=== PATIENT | male | born 1955 | race Caucasian/White ===

== ENCOUNTER → 2016-06-18 | Outpatient (CLI) | payer BC ==
[~2016-06-18] MED LIST: ASPI325T45 PO; ASPI81TA28 PO; ATOR-26 PO; CHOL1000 PO; CHOL100010 PO; CIPR-255 PO; CYAN10004 PO; HYDR-5688 PO; LOSA50TA54 PO; METO25TA56 PO; NTRGSL/4 UT; NTRSLP4 UT; OMEG10007 PO; ONDA4TAB46 PO; PHEN-775 PO; RANI300T PO; TAMS0.4C38 PO; VITAMIN B12 PO
--- NOTE | 2016-06-18 15:40 | DIAGNOSTIC IMAGING REPORT ---
C-SPINE ROUTINE 4 OR 5 VIEWS CLINICAL HISTORY: Neck pain. Radiculopathy. COMPARISON STUDY: MRI of the cervical spine November 13, 2014 and cervical spine radiographs August 17, 2014. FINDINGS: Several metallic densities consistent with BBs are again noted. There is slight reversal of the normal cervical lordosis. This is unchanged since prior exam of August 17, 2014. There is fusion of the C5 and C6 vertebral bodies. No acute fracture is identified. Mild multilevel disc space narrowing and facet arthrosis is present with osteophytosis. IMPRESSION: 1. No cervical spine fracture. 2. Fusion of the C5 and C6 vertebra. 3. Mild multilevel disc space narrowing, osteophytosis and facet arthrosis of the cervical spine. Electronically signed by: Mikey Tam M.D. 06/18/2016 3:38 PM Dictated Date/Time: 06/18/2016 3:36 PM
[2016-06-18 17:11] LABS: BASO % 0.4 %; BASO ABS # 0.03 K/uL (0-0.2); COMPLETE YES; EOS % 2.3 %; HEMATOCRIT 41.8 % (42-52); LYMPH % 37.6 %; LYMPH ABS # 3.16 K/uL (1.2-3.4); MEAN CELL VOLUME 86.2 fL (80-100); MEAN CORPUSCULAR HEMOGLOBIN 30.3 pg (25-34); MEAN CORPUSCULAR HGB CONC 35.2 g/dl (32-36); MEAN PLATELET VOLUME 9.8 fL (7.4-10.4); MONO % 12.3 %; NEUT % 46.4 %; PLATELET COUNT 187 K/uL (130-400); RED BLOOD COUNT 4.85 M/uL (4.7-6.1)
[2016-06-18 17:24] LABS: ALT/SGPT 52 U/L (12-78); AST/SGOT 22 U/L (15-37); BLOOD UREA NITROGEN 15 mg/dl (7-18); BUN/CREATININE RATIO 11.5 (10-20); CALCIUM 9.1 mg/dl (8.5-10.1); CARBON DIOXIDE 32 mmol/L (21-32); CHLORIDE 106 mmol/L (98-107); CHOLESTEROL 114 mg/dl (0-200); GLUCOSE 103 mg/dl (70-99); SODIUM 143 mmol/L (136-145); TRIGLYCERIDES 381 mg/dl (0-150); VERY LOW DENSITY LIPOPROT CALC 76 mg/dl
[2016-06-18 17:28] LABS: ALKALINE PHOSPHATASE 75 U/L (45-117); CHOLESTEROL/HDL RATIO 2.9; FERRITIN 418.6 ng/ml (8.0-388.0); HDL CHOLESTEROL 39 mg/dl; TOTAL IRON BINDING CAPACITY 302 mcg/dl (250-450)
== END | disposition home or self-care (01) ==
LOC: C.RADBC 15:06
PROVIDERS: ATTEND Family Medicine
DX: M54.12 Radiculopathy, cervical region (principal); D64.9 Anemia, unspecified; N28.9 Disorder of kidney and ureter, unspecified; Z11.59 Encounter for screening for other viral diseases; E78.5 Hyperlipidemia, unspecified; M43.22 Fusion of spine, cervical region

== ENCOUNTER → 2016-08-11 | Outpatient (CLI) | payer BC ==
--- NOTE | 2016-08-11 09:56 | DIAGNOSTIC IMAGING REPORT ---
KUB CLINICAL HISTORY: KIDNEY STONES flank pain COMPARISON STUDY: 02/18/2016 FINDINGS: Calcification previously described lower aspect left kidney is not easily appreciated currently. There is a vague similar calcification overlying the left mid sacrum. Possible that this relates to a interval passage of the lower pole left renal calcification to the distal left ureter is considered. There is a stable in the central soft tissue pelvic region unchanged. IMPRESSION: Lower pole left renal calcification is not seen currently on the region of the left kidney but potentially exists within the left ureter overlying left mid sacrum. Electronically signed by: Willy Lan M.D. 08/11/2016 9:54 AM Dictated Date/Time: 08/11/2016 9:53 AM
== END ==
LOC: C.RAD 09:22
PROVIDERS: ATTEND Nurse Practitioner Adult Health
DX: N20.0 Calculus of kidney (principal)

== ENCOUNTER → 2016-08-11 | Outpatient (CLI) | payer BC | LOC: C.LABSPEC 17:43 | PROVIDERS: ATTEND Nurse Practitioner Adult Health | DX: N20.1 Calculus of ureter (principal) ==

== ENCOUNTER 2016-08-25 05:27 | Day surgery (SDC) | payer BC ==
--- NOTE | 2016-08-14 09:49 | PAT Medication Instructions ---
Service Date Aug 14, 2016. Current Home Medication List Aspirin (Aspirin Ec), 81 MG PO QAM Atorvastatin (Lipitor), 80 MG PO QAM Cholecalciferol (Vitamin D), 2,000 INTER.UNIT PO BID Fish Oil ([place]-3), 1 CAP PO TID Hydrocodone/Acetaminophen 5MG/325MG ([place] 5MG/325MG), 1 TABLET PO q4-6h PRN for Pain Losartan Potassium (Cozaar), 50 MG PO QAM Metoprolol Tartrate (Lopressor) (Lopressor), 25 MG PO BID Nitroglycerin (Nitrostat), 0.4 MG UT PRN Ondansetron Hcl (Zofran), 4-8 MG PO PRN PRN for Nausea Tamsulosin Hcl (Flomax), 0.4 MG PO HS [Vitamin B12], 1 TAB PO QAM Medication Instructions For Your Scheduled Surgery - Hold the following medications as of 08/14/16: Fish Oil ([place]-3), 1 CAP PO TID - Continue as directed: Nitroglycerin (Nitrostat), 0.4 MG UT PRN - Hold the following medications the morning of surgery: Cholecalciferol (Vitamin D), 2,000 INTER.UNIT PO BID [Vitamin B12], 1 TAB PO QAM Losartan Potassium (Cozaar), 50 MG PO QAM - Take the following medications the morning of surgery with a sip of water OTHERWISE NOTHING TO EAT OR DRINK AFTER MIDNIGHT: Aspirin (Aspirin Ec), 81 MG PO QAM Atorvastatin (Lipitor), 80 MG PO QAM Hydrocodone/Acetaminophen 5MG/325MG ([place] 5MG/325MG), 1 TABLET PO q4-6h PRN for Pain (may take up to 4 hours prior to surgery if needed) Metoprolol Tartrate (Lopressor) (Lopressor), 25 MG PO BID Ondansetron Hcl (Zofran), 4-8 MG PO PRN PRN for Nausea - Take the following medications as scheduled the night before surgery: Cholecalciferol (Vitamin D), 2,000 INTER.UNIT PO BID Hydrocodone/Acetaminophen 5MG/325MG ([place] 5MG/325MG), 1 TABLET PO q4-6h PRN for Pain Tamsulosin Hcl (Flomax), 0.4 MG PO HS Metoprolol Tartrate (Lopressor) (Lopressor), 25 MG PO BID Ondansetron Hcl (Zofran), 4-8 MG PO PRN PRN for Nausea If you have any questions please call us at [phone] or [phone] or [phone]
[2016-08-14 10:10] LABS: BASO % 0.5 %; BASO ABS # 0.04 K/uL (0-0.2); COMPLETE YES; EOS % 2.2 %; HEMATOCRIT 40.4 % (42-52); IG% 0.7 %; LYMPH % 32.8 %; MEAN CELL VOLUME 87.4 fL (80-100); MEAN CORPUSCULAR HEMOGLOBIN 32.3 pg (25-34); MEAN CORPUSCULAR HGB CONC 36.9 g/dl (32-36); MEAN PLATELET VOLUME 9.3 fL (7.4-10.4); MONO % 11.2 %; NEUT % 52.6 %; PLATELET COUNT 166 K/uL (130-400); RED BLOOD COUNT 4.62 M/uL (4.7-6.1); WHITE BLOOD COUNT 7.31 K/uL (4.8-10.8)
[2016-08-14 10:34] LABS: BUN/CREATININE RATIO 14.9 (10-20); CALCIUM 9.2 mg/dl (8.5-10.1); CREATININE 1.8 mg/dl (0.60-1.40); POTASSIUM 4.7 mmol/L (3.5-5.1)
[~2016-08-25] VITALS: Ht 175.3 cm; Wt 93.3 kg
[~2016-08-25 05:27] MED LIST changes: -ASPI325T45 PO; -CHOL1000 PO; -CIPR-255 PO; -CYAN10004 PO; -NTRSLP4 UT; -PHEN-775 PO; -RANI300T PO
[2016-08-25 05:58] VITALS: BP 113/75; PULSE 68; TEMP 36.7; O2SAT 94; Ht 175.3 cm; Wt 93.3 kg
[2016-08-25] MEDS ORDERED: CIPROFLOXACIN / D5W 400 MG IV SCH (06:00)
[2016-08-25] MEDS ORDERED: LACTATED RINGER'S 1000ML 1,000 ML IV SCH (06:00)
[2016-08-25] MEDS ORDERED: FENTANYL CITRATE INJ 50 MCG/1 ML 2 ML VIAL ONE (06:53)
[2016-08-25] MEDS ORDERED: MIDAZOLAM HCL 1 MG/ML 2ML VIAL ONE (06:53)
--- NOTE | 2016-08-25 07:02 | History & Physical Bridge Note ---
H&P Re-Evaluation Bridge Note: I have examined the patient, reviewed the History & Physical and in the interval since the performance of the History & Physical I have noted the following changes of clinical significance: No changes noted
[2016-08-25] MEDS ORDERED: CONRAY 30% 150ML BOTTLE ONE (07:14)
[2016-08-25] MEDS ORDERED: LABETALOL HCL IV 5 MG/ML 20ML IV PRN (07:15)
[2016-08-25] MEDS ORDERED: FENTANYL CITRATE INJ 50 MCG/1 ML 2 ML VIAL IV PRN (07:15)
[2016-08-25] MEDS ORDERED: ATROPINE SULFATE 0.1 MG/ML 5ML SYR IV PRN (07:15)
[2016-08-25] MEDS ORDERED: ONDANSETRON INJ 2 MG/ML 2 ML VIAL IV PRN (07:15)
[2016-08-25] MEDS ORDERED: PROPOFOL IV EMULSION 10 MG/ML 20 ML VIAL IV ONE (07:32)
[2016-08-25] MEDS ORDERED: DEXAMETHASONE SOD INJ 4 MG/ML VIAL ONE (07:32)
[2016-08-25] MEDS ORDERED: LIDOCAINE HCL 2% 2 ML VIAL (20MG/ML) ONE (07:32)
[2016-08-25] MEDS ORDERED: ONDANSETRON INJ 2 MG/ML 2 ML VIAL ONE (07:32)
[2016-08-25] MEDS ORDERED: PHENYLEPHRINE 100MCG/ML 5ML SYR ONE (07:35)
[2016-08-25] MEDS ORDERED: EpHEDrine SULFATE 50MG/5ML SYR ONE (07:35)
[2016-08-25] MEDS ORDERED: GLYCOPYRROLATE INJ 0.2 MG/ML VIAL ONE (07:51)
[2016-08-25] MEDS ORDERED: KETOROLAC TROMETHAMINE 30 MG/ML VIAL IV. STA (08:07)
[2016-08-25] MEDS ORDERED: SODIUM CHLORIDE 0.9% 1000ML 1,000 ML IV SCH (08:07)
--- NOTE | 2016-08-25 08:07 | [facility] Post Operative Brief Note ---
Immediate Operative Summary Operative Date Aug 25, 2016. Pre-Operative Diagnosis nephrolithiasis - left Post-Operative Diagnosis nephrolithiasis - left Procedure(s) Performed Cystoscopy, ureteroscopy, laser lithotropsy, left urethral stent (6Fx 24cm) Surgeon Dr Mika Stephens Entry Level Assistant Manager Surgeon(s) none Estimated Blood Loss 0cc Findings left mid/distal ureteral calculus. Specimens none Drains stent Anesthesia gen Complication(s) None Disposition Recovery Room / PACU (stable)
[2016-08-25] MEDS ORDERED: HYDR-5688 PO (08:09)
[2016-08-25] MEDS ORDERED: PHEN-775 PO (08:09)
[2016-08-25] MEDS ORDERED: CIPR-255 PO (08:09)
--- NOTE | 2016-08-25 08:11 | Discharge Instructions ---
Discharge Instructions Date of Service Aug 25, 2016. Admission Reason for Admission: Stone Discharge Discharge Diagnosis / Problem: stone Discharge Goals Goal(s): Decrease discomfort, Improve function, Increase independence, Improve disease control, Prevent Disease Progression Activity Recommendations Activity Limitations: resume your previous activity Lifting Limitations: none Exercise/Sports Limitations: none May Resume Sexual Activity: when tolerated Shower/Bathe: no limitations Driving or Machine Use: no limitations (as long as you are off of pain meds) . Discharge Diet Recommended Diet: Regular Diet Procedures Procedures Performed: Cystoscopy, ureteroscopy, laser lithotropsy, left urethral stent (6Fx 24cm) Pending Studies Studies pending at discharge: no Laboratory Results Lipid Panel Test 06/18/16 15:11 Range/Units Triglycerides Level 381 H 0-150 mg/dl Cholesterol Level 114 0-200 mg/dl HDL Cholesterol 39 mg/dl LDL Cholesterol Direct 49 mg/dl Cholesterol/HDL Ratio 2.9 LDL Cholesterol, Calculated mg/dl Medical Emergencies . Who to Call and When: Medical Emergencies: If at any time you feel your situation is an emergency, please call 911 immediately. . Non-Emergent Contact Non-Emergency issues call your: Urologist Call Non-Emergent contact if: you have a fever, temperature is above 101.5, your pain is not controlled, your pain is worsening . . "Provider Documentation" section prepared by Tristian Espinal. VTE Core Measure Inpt VTE Proph given/why not?: Treatment not indicated [place] Drug Monitoring Program Search Results: patient reviewed within database, no issues identified
[2016-08-25] MEDS ORDERED: HYDROCODONE/ACETAMOPHEN 5/325MG TAB PO PRN ×2 (08:15)
--- NOTE | 2016-08-25 08:41 | OPERATIVE REPORT ---
DATE OF OPERATION: 08/25/2016 PREOPERATIVE DIAGNOSIS: Left ureteral calculus. POSTOPERATIVE DIAGNOSIS: Left ureteral calculus. PROCEDURES PERFORMED: Cystoscopy, left ureteroscopy, left laser lithotripsy, and left ureteral stent placement. ANESTHESIA: General. ESTIMATED BLOOD LOSS: 0. URINE OUTPUT: Not recorded. SPECIMENS: There were no specimens. COMPLICATIONS: There were no complications. DESCRIPTION OF THE PROCEDURE: Reji Stack was identified in the preoperative holding area. Appropriate informed consents were reviewed and completed and the patient was transported to the operating suite. Upon arrival, he received appropriate preoperative antibiotics in the form of ciprofloxacin. Adequate general anesthesia was achieved and the patient was placed in dorsal lithotomy position, where he was sterilely prepped and draped in standard fashion. I passed a 22-Khmer cystoscope without difficulty. Inspection of the urethra revealed no evidence of stricture disease. Prostate was relatively small in size. Full inspection of the bladder was carried out with no evidence of mucosal disease aside from very mild irritation around the left ureteral orifice. On fluoroscopy, I was able to easily visualize what appeared to be a calculus just below the lower edge of the pelvic osseous structures. I was able to intubate the left ureteral orifice with a sensor wire. Wire advanced directly to this opacity and then I was able to bypass it. After placing one wire in the kidney, I withdrew the cystoscope and I reentered with a semirigid ureteroscope alongside the initial wire. I was able to guide this into the distal ureter and I encountered the stone just at the level of the blood vessels. I passed a 400 micron laser fiber and I was able to fragment the stone into several pieces. Multiple larger fragments were removed retrograde. I traced this up the proximal ureter and noted that a fragment had moved into the kidney. I then placed a second wire through the scope, withdrew the rigid scope and then reentered with a flexible scope. Flexible scope was advanced to the kidney without difficulty. Full inspection revealed no opacity on fluoroscopy in the lower pole and I was able to find this with the scope without difficulty. I fragmented this completely into pieces, deemed safe for spontaneous passage. I then performed a full repeat renoscopy and found no other large retained fragments. Very careful exit ureteroscopy was completed with again no large retained fragments. I did perform a retrograde pyelogram and had seen no evidence of extravasation prior to placing a 6/24 ureteral stent. There was a good curl in the kidney as well as the bladder. The bladder was decompressed and the case concluded. There were no complications. I attest to the content of the Intraoperative Record and any orders documented therein. Any exceptions are noted below. MTDD
[2016-08-25 08:55] VITALS: BP 143/90; PULSE 93; TEMP 36.6; O2SAT 93
[2016-08-25 09:25] VITALS: BP 133/84; PULSE 96; O2SAT 91
[2016-08-25 09:55] VITALS: BP 133/84; PULSE 91; TEMP 36.6; O2SAT 93
[2016-08-25] MEDS ORDERED: TAMSULOSIN HCL 0.4 MG CAP PO SCH ×2 (10:00→21:00)
--- NOTE | 2016-08-25 10:12 | Anesthesiology Progress Note ---
Anesthesia Post Op Note Date & Time Aug 25, 2016 at 10:12 Vital Signs Pain Intensity: 0 Vital Signs Past 12 Hours Date Time Temp Pulse Resp B/P Pulse Ox O2 Delivery O2 Flow Rate FiO2 08/25/16 09:55 36.6 91 20 133/84 93 Room Air 0 08/25/16 09:25 96 20 133/84 91 Room Air 08/25/16 08:55 36.6 93 18 143/90 93 Room Air 08/25/16 08:50 36.2 97 14 130/97 97 Room Air 08/25/16 08:40 96 14 121/86 91 Room Air 08/25/16 08:30 97 13 113/64 97 Mask 10 08/25/16 08:20 93 12 104/64 96 Mask 10 08/25/16 08:11 36.5 93 14 95/63 96 Mask 10 08/25/16 05:58 36.7 68 18 113/75 94 Room Air Notes Mental Status: alert / awake / arousable, participated in evaluation Pt Amnestic to Procedure: Yes Nausea / Vomiting: adequately controlled Pain: adequately controlled Airway Patency, RR, SpO2: stable & adequate BP & HR: stable & adequate Hydration State: stable & adequate Anesthetic Complications: no major complications apparent
== END 2016-08-25 10:15 | disposition home or self-care (01) ==
LOC: C.ACU 05:27
PROVIDERS: ATTEND Urology
DX: N20.1 Calculus of ureter (principal); N28.9 Disorder of kidney and ureter, unspecified; J44.9 Chronic obstructive pulmonary disease, unspecified; D64.9 Anemia, unspecified; M54.12 Radiculopathy, cervical region; I25.10 Atherosclerotic heart disease of native coronary artery without angina pectoris; I10 Essential (primary) hypertension; E78.5 Hyperlipidemia, unspecified; K31.9 Disease of stomach and duodenum, unspecified; I25.2 Old myocardial infarction; Z98.890 Other specified postprocedural states

== ENCOUNTER → 2016-09-08 | Outpatient (CLI) | payer BC ==
[~2016-09-08] MED LIST changes: +ASPI325T45 PO; +CHOL1000 PO; +CIPR-255 PO; +CYAN10004 PO; +NTRSLP4 UT
--- NOTE | 2016-09-08 10:43 | DIAGNOSTIC IMAGING REPORT ---
KUB CLINICAL HISTORY: Nephrolithiasis. Left ureteral stone. FINDINGS: 3 AP supine abdominal radiographs are compared to study dated 08/11/2016. There is a nonobstructed abdominal bowel gas pattern. A left ureteral stent is new from previous. No calcifications are seen along the course of the stent. No calcifications project over either kidney. Cholecystectomy clips are noted. The bony structures appear intact. IMPRESSION: 1. A left ureteral stent is new from previous. No calcifications are seen along the course of the stent. 2. No calcifications project over either kidney. Electronically signed by: Jarvis Shields M.D. 09/08/2016 10:41 AM Dictated Date/Time: 09/08/2016 10:40 AM
== END | disposition home or self-care (01) ==
LOC: C.RAD 09:45
PROVIDERS: ATTEND Nurse Practitioner Adult Health
DX: N20.1 Calculus of ureter (principal)

== ENCOUNTER → 2016-10-30 | Outpatient (CLI) | payer BC ==
[~2016-10-30] MED LIST changes: -CIPR-255 PO; -TAMS0.4C38 PO
[2016-10-30 13:36] LABS: BASO % 0.6 %; BASO ABS # 0.04 K/uL (0-0.2); COMPLETE YES; EOS % 1.7 %; HEMATOCRIT 41.6 % (42-52); IG% 1.1 %; LYMPH ABS # 2.51 K/uL (1.2-3.4); MEAN CELL VOLUME 88.9 fL (80-100); MEAN CORPUSCULAR HGB CONC 34.9 g/dl (32-36); MEAN PLATELET VOLUME 9.7 fL (7.4-10.4); MONO % 15.1 %; NEUT % 45.5 %; PLATELET COUNT 196 K/uL (130-400); RED BLOOD COUNT 4.68 M/uL (4.7-6.1); WHITE BLOOD COUNT 6.97 K/uL (4.8-10.8)
[2016-10-30 14:00] LABS: ALT/SGPT 40 U/L (12-78); BLOOD UREA NITROGEN 17 mg/dl (7-18); BUN/CREATININE RATIO 10.4 (10-20); CARBON DIOXIDE 27 mmol/L (21-32); CHLORIDE 106 mmol/L (98-107); GLUCOSE 124 mg/dl (70-99); POTASSIUM 4.1 mmol/L (3.5-5.1); SODIUM 141 mmol/L (136-145)
[2016-10-30 14:10] LABS: ALB/GLOB RATIO 0.9 (0.9-2); ALKALINE PHOSPHATASE 73 U/L (45-117); AST/SGOT 20 U/L (15-37)
[2016-10-30 14:28] LABS: LYME DISEASE AB IGG NEG (NEG)
[2016-10-30 14:32] LABS: LYME DISEASE AB IGM NEG (NEG)
[2016-10-30 14:56] LABS: CALCIUM 9.4 mg/dl (8.5-10.1)
== END | disposition home or self-care (01) ==
LOC: C.LABBC 10:44
PROVIDERS: ATTEND Physician Assistant
DX: R51 Headache (principal)

== ENCOUNTER 2016-11-15 17:47 | Inpatient (IN) | payer BC ==
[~2016-11-15] VITALS: Ht 175.3 cm; Wt 91.1 kg
[~2016-11-15 17:47] MED LIST changes: -ASPI325T45 PO; -CHOL1000 PO; -CYAN10004 PO; -NTRSLP4 UT
[2016-11-15] MEDS ORDERED: ASPIRIN 81 MG CHEW PO STA (18:04)
--- NOTE | 2016-11-15 18:15 | EMERGENCY ROOM VISIT NOTE ---
History Report prepared by Katelyn: Mckenzie Lo Under the Supervision of: Dr. Jarvis Mackay M.D. First contact with patient: 18:01 Chief Complaint: CHEST PAIN Stated Complaint: CHEST PAIN,R ARM PAIN/NUMBNESS Nursing Triage Summary: Patient arrived c/o bilateral chest pain that began this morning, went away and came back. Pt reports dizziness while working outside over last week and SOB x 1 week on exertion. Patient associates right arm pain. Hx stents Steroid shot in neck a week ago. History of Present Illness The patient is a 61 year old male who presents to the Emergency Room with complaints of intermittent chest pain that started this morning around 0630, when he woke up. He is accompanied by his . He describes his pain as feeling "strong, right across my chest" and rates his discomfort as a 3/10 in severity. It subsided early in the day, then came back later in the afternoon. He did not take any medication for his discomfort, stating "I was going to take a Nitro, but I decided to come here instead". He reports he has also experienced shortness of breath for the past 1 week that is worsened by exertion , and dizziness when working outside in the heat. The patient has a history of a previous [place] in 2015 and has had 2 cardiac stents placed. He follows with [facility] and states he does not currently take blood thinners. Source of History: patient Onset: 0630 this morning Position: chest Symptom Intensity: 3/10 Timing: intermittent Associated Symptoms: + SOB Review of Systems See HPI for pertinent positives & negatives. A total of 10 systems reviewed and were otherwise negative. Past Medical & Surgical Medical Problems: (1) Cholecystectomy (2) Kidney stone (3) Left ureteral stone (4) Unstable angina (5) Ureteral obstruction, left Surgical Problems: (1) Stented coronary artery Social History Smoking Status: Never Smoker Alcohol Use: none Drug Use: none Marital Status: Housing Status: lives with family Occupation Status: retired Current/Historical Medications Scheduled Aspirin (Aspirin), 1 TAB PO DAILY Atorvastatin (Lipitor), 80 MG PO QAM Cholecalciferol (Vitamin D3), 2,000 UNITS PO DAILY Cyanocobalamin (Vitamin B-12 1000 Mcg), 1,000 MCG PO DAILY Fish Oil ([place]-3), 1 CAP PO BID Losartan Potassium (Cozaar), 50 MG PO QAM Metoprolol Tartrate (Lopressor) (Lopressor), 25 MG PO BID Scheduled PRN Nitroglycerin (Nitrostat), 0.4 MG UT UD PRN for Chest Pain Ondansetron Hcl (Zofran), 4-8 MG PO PRN PRN for Nausea Allergies Coded Allergies: Oxycodone (Verified Allergy, Unknown, PERCOCET-Rash, 08/25/16) CAN USE VICODIN Physical Exam Vital Signs Date Time Temp Pulse Resp B/P (MAP) Pulse Ox O2 Delivery O2 Flow Rate FiO2 11/15/16 19:31 129/85 11/15/16 19:17 68 12 94 11/15/16 19:01 102/72 11/15/16 18:47 76 20 96 11/15/16 18:47 72 20 105/73 95 Room Air 11/15/16 18:46 105/73 11/15/16 18:17 77 16 11/15/16 18:07 94 Room Air 11/15/16 18:07 94 Room Air 11/15/16 18:06 74 11/15/16 17:50 94 Room Air 11/15/16 17:50 36.8 83 18 106/74 94 Room Air Physical Exam GENERAL: Patient is awake, alert, in no acute distress, patient is resting comfortably and showing no signs of anxiety EYES: The conjunctivae are clear. The pupils are round and reactive. EARS, NOSE, MOUTH AND THROAT: The nose is without any evidence of any deformity. Mucous membranes are moist tongue is midline NECK: The neck is nontender and supple. RESPIRATORY: Normal respiratory effort is noted there is no evidence of wheezing rhonchi or rales CARDIOVASCULAR: Regular rate and rhythm noted there no murmurs rubs or gallops normal S1 normal S2 GASTROINTESTINAL: The abdomen is soft. Bowel sounds are present in all quadrants. Abdomen is nontender MUSCULOSKELETAL/EXTREMITIES: There is no evidence of gross deformity full range of motion is noted in the hips and shoulders SKIN: There is no obvious evidence of any rash. There are no petechiae, pallor or cyanosis noted. NEUROLOGIC: Patient is awake alert and oriented x3 Medical Decision & Procedures ER Provider Diagnostic Interpretation: Radiology results as stated below per my review and radiologist interpretation: CHEST ONE VIEW PORTABLE CLINICAL HISTORY: CHEST PAIN dyspnea COMPARISON STUDY: 03/03/2016 FINDINGS: The bones soft tissues and hemidiaphragms are normal. The cardiomediastinal silhouette is normal. The lungs are clear. The pulmonary vasculature is normal. IMPRESSION: Negative chest. Electronically signed by: Willy Lan M.D. 11/15/2016 6:51 PM Laboratory Results Test 11/15/16 18:25 Total Bilirubin 1.4 mg/dl (0.2-1) Direct Bilirubin 0.2 mg/dl (0-0.2) Aspartate Amino Transf (AST/SGOT) 12 U/L (15-37) Alanine Aminotransferase (ALT/SGPT) 58 U/L (12-78) Alkaline Phosphatase 78 U/L (45-117) Total Protein 6.5 gm/dl (6.4-8.2) Albumin 3.0 gm/dl (3.4-5.0) Lipase 324 U/L (73-393) Laboratory results per my review. Medications Administered Medications (Trade) Dose Ordered Sig/Robles Route Start Time Stop Time Status Last Admin Dose Admin Aspirin (Aspirin Chew) 324 mg NOW STAT PO 11/15/16 18:04 11/15/16 18:06 DC 11/15/16 18:37 324 MG Sodium Chloride 500 ml @ 999 mls/hr Q31M STAT IV 11/15/16 19:13 11/15/16 19:43 DC 11/15/16 19:13 999 MLS/HR ECG Indication: chest pain Rate (beats per minute): 72 Rhythm: normal sinus Findings: no ectopy, other (no acute ST segment abnormalities) Change: no significant change (No change when compared to 03/03/2016) ED Course 180: The patient was evaluated in room B9. A complete history and physical examination were performed. 1803: Aspirin 324 mg PO. 1909: I reevaluated the patient. He is feeling much better. I discussed my recommendation that he remain in the hospital for further evaluation and management. He verbalized complete understanding and agreement. 1912: NSS 500 ml @ 999 mls/hr IV. 1926: I discussed the patients case with Dr. Pierre, [facility] Hospitalist. The patient will be further evaluated. Medical Decision Medication Reconciliation: I attest that I have personally reviewed the patient' s current medications list. Blood pressure screening: Patient was found to have normal blood pressure on screening and does not require follow-up. Prior records/ancillary studies reviewed. Triage Nursing notes reviewed. The patient's history was concerning for chest pain. Differential diagnosis: Etiologies such as cardiac ischemia, aortic dissection, pulmonary embolism, pneumonia, pneumothorax, musculoskeletal, infections, pericarditis, myocarditis , esophageal rupture, gastrointestinal, as well as others were entertained. The patient is a 61-year-old male who is a history of coronary artery disease as well as coronary artery stenting in the past who presented to the emergency department for an evaluation of left-sided chest pain. The patient describes an episode of chest pain which began while he was exerting himself outside. The patient states initially improved but then came back again. His significant other was very concerned because the patient was very diaphoretic. The patient arrives at the emergency Department with significant improvement in his pain. He chose not to take his nitroglycerin which she is prescribed. The patient had an EKG did not show any acute changes from previous and his initial cardiac biomarkers were negative. I discussed the patient's laboratory and radiographic studies with him. I also discussed the limitations of the emergency department workup for chest pain with him. Given his past medical history as well as his risk factors I discussed his case with the on-call [facility] hospitalist. They've agreed to evaluate the patient in the emergency department for further management and disposition. Consults Time Called: 1914 Consulting Physician: Dr. Pierre [facility] Hospitalist Returned Call: 1926 I discussed the patients case with Dr. Pierre [facility] Hospitalist. The patient will be further evaluated. Impression Primary Impression: Left sided chest pain Scribe Attestation The scribe's documentation has been prepared under my direction and personally reviewed by me in its entirety. I confirm that the note above accurately reflects all work, treatment, procedures, and medical decision making performed by me. Departure Information Dispostion Being Evaluated By Hospitalist Prescriptions Aspirin (ASPIRIN) 325 Mg Tab 1 TAB PO DAILY for 30 Days, #30 TAB Prov: Sun Breen PA-C 11/16/16 Nitroglycerin (Nitrostat) 0.4 Mg/1 Tab Subl 0.4 MG UT UD Y for Chest Pain for 15 Days, #90 TAB Prov: Sun Breen PA-C 11/16/16 Referrals Calvo, Arian T., D.O.Int.Med. (PCP) Patient Instructions My [facility]
[2016-11-15] MEDS ORDERED: CHOL1000 PO (18:18)
[2016-11-15] MEDS ORDERED: CYAN10004 PO (18:18)
[2016-11-15 18:47] LABS: BASO % 0.1 %; BASO ABS # 0.01 K/uL (0-0.2); COMPLETE YES; EOS % 0.7 %; HEMATOCRIT 44.1 % (42-52); IG% 1.7 %; LYMPH % 10.2 %; LYMPH ABS # 1.77 K/uL (1.2-3.4); MEAN CELL VOLUME 87.7 fL (80-100); MEAN CORPUSCULAR HEMOGLOBIN 31.4 pg (25-34); MEAN CORPUSCULAR HGB CONC 35.8 g/dl (32-36); MEAN PLATELET VOLUME 9.2 fL (7.4-10.4); NEUT % 77.3 %; PLATELET COUNT 224 K/uL (130-400); RED BLOOD COUNT 5.03 M/uL (4.7-6.1); WHITE BLOOD COUNT 17.39 K/uL (4.8-10.8)
--- NOTE | 2016-11-15 18:52 | DIAGNOSTIC IMAGING REPORT ---
CHEST ONE VIEW PORTABLE CLINICAL HISTORY: CHEST PAIN dyspnea COMPARISON STUDY: 03/03/2016 FINDINGS: The bones soft tissues and hemidiaphragms are normal. The cardiomediastinal silhouette is normal. The lungs are clear. The pulmonary vasculature is normal. IMPRESSION: Negative chest. Electronically signed by: Willy Lan M.D. 11/15/2016 6:51 PM Dictated Date/Time: 11/15/2016 6:51 PM
[2016-11-15 18:56] LABS: ALT/SGPT 58 U/L (12-78); AST/SGOT 12 U/L (15-37); BLOOD UREA NITROGEN 35 mg/dl (7-18); BUN/CREATININE RATIO 20.5 (10-20); CALCIUM 8.2 mg/dl (8.5-10.1); CARBON DIOXIDE 22 mmol/L (21-32); CHLORIDE 109 mmol/L (98-107); GLUCOSE 135 mg/dl (70-99); SODIUM 140 mmol/L (136-145)
[2016-11-15 18:58] LABS: PARTIAL THROMBOPLASTIN RATIO 0.8; PROTHROMBIN TIME (PATIENT) 10.6 SECONDS (9.0-12.0)
[2016-11-15 19:02] LABS: ALKALINE PHOSPHATASE 78 U/L (45-117)
[2016-11-15] MEDS ORDERED: SODIUM CHLORIDE 0.9% 500ML 500 ML IV STA (19:13)
[2016-11-15] MEDS ORDERED: ONDANSETRON INJ 2 MG/ML 2 ML VIAL IV PRN (19:30)
[2016-11-15] MEDS ORDERED: NITROGLYCERIN 0.4 MG SL PER TAB CHARGE UT PRN (19:30)
[2016-11-15] MEDS ORDERED: NITROGLYCERIN 0.4 MG SL PER TAB CHARGE SL PRN (19:45)
[2016-11-15] MEDS ORDERED: NITROGLYCERIN OINT 2% 1GM PACKET ONE (19:45)
[2016-11-15] MEDS ORDERED: HEPARIN SOD 5000 UNIT/0.5 ML CARP ONE (19:45)
[2016-11-15] MEDS ORDERED: HEPARIN 25000 UNIT/500 ML D5W ONE (19:45)
[2016-11-15] MEDS ORDERED: ACETAMINOPHEN 325 MG TAB PO PRN (19:45)
[2016-11-15 21:01] VITALS: BP 134/77; PULSE 63; TEMP 36.8; O2SAT 96; Ht 175.3 cm; Wt 91.1 kg
[2016-11-15] MEDS: SODIUM CHLORIDE 0.9% 1000ML 1,000 ML IV SCH (21:31)
[2016-11-15] MEDS ORDERED: HEPARIN 25,000 UNIT/500ML D5W 500 ML IV PRN (21:45)
[2016-11-15] MEDS: METOPROLOL TARTRATE 25 MG TAB PO SCH (21:49)
[2016-11-15] MEDS: OMEGA-3 (PURIFIED FISH OIL) 1 GM CAP PO SCH (21:49)
[2016-11-15] MEDS: NITROGLYCERIN 2% OINTMENT 30GM TUBE EXT SCH (21:52)
[2016-11-15 23:47] VITALS: BP 106/66; PULSE 67; TEMP 36.7; O2SAT 94
[2016-11-16 01:44] LABS: BASO % 0.1 %; BASO ABS # 0.01 K/uL (0-0.2); COMPLETE YES; EOS % 1.1 %; HEMATOCRIT 40.9 % (42-52); IG% 1.3 %; LYMPH % 13.8 %; LYMPH ABS # 1.96 K/uL (1.2-3.4); MEAN CELL VOLUME 87.2 fL (80-100); MEAN CORPUSCULAR HEMOGLOBIN 30.3 pg (25-34); MEAN CORPUSCULAR HGB CONC 34.7 g/dl (32-36); MEAN PLATELET VOLUME 8.7 fL (7.4-10.4); MONO % 10.3 %; NEUT % 73.4 %; PLATELET COUNT 161 K/uL (130-400); RED BLOOD COUNT 4.69 M/uL (4.7-6.1); WHITE BLOOD COUNT 14.22 K/uL (4.8-10.8)
[2016-11-16 02:03] LABS: BLOOD UREA NITROGEN 32 mg/dl (7-18); BUN/CREATININE RATIO 21.6 (10-20); CALCIUM 7.7 mg/dl (8.5-10.1); CARBON DIOXIDE 21 mmol/L (21-32); CHLORIDE 113 mmol/L (98-107); GLUCOSE 132 mg/dl (70-99); MAGNESIUM 2.2 mg/dl (1.8-2.4); POTASSIUM 4.4 mmol/L (3.5-5.1); SODIUM 142 mmol/L (136-145)
[2016-11-16 02:05] LABS: INR 1.1 (0.9-1.1); PARTIAL THROMBOPLASTIN RATIO 4.6; PROTHROMBIN TIME (PATIENT) 11.4 SECONDS (9.0-12.0)
--- NOTE | 2016-11-16 02:49 | History and Physical ---
History & Physical Date & Time of Service: Nov 16, 2016 at 02:36. The patient examined on 11/15/2016. Chief Complaint: Stented Coronary Artery, Unstable Angina Primary Care Physician: Arian Calvo D.O.Int.Med. History of Present Illness Source: patient, spouse The patient is a 61-year-old male who presents to emergency department for cardiac assessment. He woke up this morning around 6:30 with tightness across his chest that did improve on its own. He then ate breakfast, and then went out to work in his workroom. The tightness returned at that time, and his reports that he developed shortness of breath and severe sweats as well. He and his reports that he has had shortness of breath over the past week, in particular when he's been exerting himself. He does have a previous history in 2014 of an VT with 2 cardiac stent placements, and reports that these symptoms are similar to those at that time. At this point in the emergency department, he still feels chest tightness at a rating of 3-4 out of 10, and feels very fatigued. Past Medical/Surgical History Medical Problems: (1) Cholecystectomy Status: Resolved (2) Kidney stone Status: Resolved Social History Smoking Status: Never Smoker Smokeless Tobacco Use: No Alcohol Use: none Drug Use: none Marital Status: Housing status: lives with family Occupational Status: retired Immunizations History of Influenza Vaccine: N/A Influenza Vaccine Date: Mar 01, 2009 History of Tetanus Vaccine?: Yes Tetanus Immunization Date: Apr 01, 2006 History of Pneumococcal: No History of Hepatitis B Vaccine: No Multi-Drug Resistant Organisms History of MDRO: No Allergies Coded Allergies: Oxycodone (Verified Allergy, Unknown, PERCOCET-Rash, 08/25/16) CAN USE VICODIN Home Medications Scheduled Aspirin (Aspirin Ec), 81 MG PO QAM Atorvastatin (Lipitor), 80 MG PO QAM Cholecalciferol (Vitamin D3), 2,000 UNITS PO DAILY Cyanocobalamin (Vitamin B-12 1000 Mcg), 1,000 MCG PO DAILY Fish Oil ([place]-3), 1 CAP PO BID Losartan Potassium (Cozaar), 50 MG PO QAM Metoprolol Tartrate (Lopressor) (Lopressor), 25 MG PO BID Nitroglycerin (Nitrostat), 0.4 MG UT PRN Scheduled PRN Ondansetron Hcl (Zofran), 4-8 MG PO PRN PRN for Nausea Review of Systems The patient denies palpitations, cough, lower extremity swelling, sore throat, fevers, chills, sweats, weight change, nausea, vomiting, abdominal pain, pelvic pain, blood in urine or stool, dysuria, urinary frequency or urgency, lightheadedness, dizziness, headache, memory loss, rash, abnormal bruising or bleeding, imbalance, focal or generalized weakness, numbness or tingling in arms or legs, arthralgias or myalgias, back or neck pain, night sweats, or allergy symptoms. The review of systems is otherwise negative other than for that already noted above, and at least 10 systems have been reviewed. Physical Exam Vital Signs Date Time Temp Pulse Resp B/P (MAP) Pulse Ox O2 Delivery O2 Flow Rate FiO2 11/16/16 00:00 Room Air 11/15/16 23:47 36.7 67 17 106/66 (79) 94 Room Air 11/15/16 21:01 36.8 63 18 134/77 96 Room Air 11/15/16 20:29 36.8 66 13 115/78 95 11/15/16 20:25 66 13 11/15/16 20:20 62 14 95 11/15/16 20:15 75 17 95 11/15/16 20:10 63 11 94 11/15/16 20:05 115/78 11/15/16 19:47 63 12 95 11/15/16 19:31 129/85 11/15/16 19:17 68 12 94 11/15/16 19:01 102/72 11/15/16 18:47 76 20 96 11/15/16 18:47 72 20 105/73 95 Room Air 11/15/16 18:46 105/73 11/15/16 18:17 77 16 11/15/16 18:07 94 Room Air 11/15/16 18:07 94 Room Air 11/15/16 18:06 74 11/15/16 17:50 94 Room Air 11/15/16 17:50 36.8 83 18 106/74 94 Room Air The patient is awake, well-developed and adequately nourished, alert and oriented 3, normocephalic and atraumatic, looks fatigued, lying in bed and in otherwise no acute distress. HEENT--PERRL, EOMI, mucous membranes and oropharynx normal. Neck--supple, no JVD or bruits, thyroid normal, trachea midline, no adenopathy. Heart--normal S1 and S2, no extra beats, no murmurs, rubs or gallops. Lungs--clear bilaterally with good air movement, no respiratory distress, no accessory muscle use. Abdomen--normal bowel sounds and soft, nontender and nondistended, no hernias or masses, no organomegaly. Extremities--no cyanosis, clubbing or edema. There are good distal pulses b/l. Dermatologic--normal skin turgor, normal color, warm and dry, no abnormal lymph nodes, no rash. Neurologic--cranial nerves II through XII grossly intact. Rheumatologic--normal range of motion, nontender, muscles and joints. Psychiatric--normal affect. Diagnostics Laboratory Results Results Past 24 Hours Test 11/15/16 18:25 11/15/16 21:05 11/16/16 01:40 Range/Units White Blood Count 17.39 14.22 4.8-10.8 K/uL Red Blood Count 5.03 4.69 4.7-6.1 M/uL Hemoglobin 15.8 14.2 14.0-18.0 g/dL Hematocrit 44.1 40.9 42-52 % Mean Corpuscular Volume 87.7 87.2 80-100 fL Mean Corpuscular Hemoglobin 31.4 30.3 25-34 pg Mean Corpuscular Hemoglobin Concent 35.8 34.7 32-36 g/dl Platelet Count 224 161 130-400 K/uL Mean Platelet Volume 9.2 8.7 7.4-10.4 fL Neutrophils (%) (Auto) 77.3 73.4 % Lymphocytes (%) (Auto) 10.2 13.8 % Monocytes (%) (Auto) 10.0 10.3 % Eosinophils (%) (Auto) 0.7 1.1 % Basophils (%) (Auto) 0.1 0.1 % Neutrophils # (Auto) 13.44 10.44 1.4-6.5 K/uL Lymphocytes # (Auto) 1.77 1.96 1.2-3.4 K/uL Monocytes # (Auto) 1.74 1.47 0.11-0.59 K/uL Eosinophils # (Auto) 0.13 0.16 0-0.5 K/uL Basophils # (Auto) 0.01 0.01 0-0.2 K/uL RDW Standard Deviation 40.4 40.3 36.4-46.3 fL RDW Coefficient of Variation 12.6 12.7 11.5-14.5 % Immature Granulocyte % (Auto) 1.7 1.3 % Immature Granulocyte # (Auto) 0.30 0.18 0.00-0.02 K/uL Prothrombin Time 10.6 11.4 9.0-12.0 SECONDS Prothromb Time International Ratio 1.0 1.1 0.9-1.1 Activated Partial Thromboplast Time 21.9 119.0 21.0-31.0 SECONDS Partial Thromboplastin Ratio 0.8 4.6 Sodium Level 140 142 136-145 mmol/L Potassium Level 4.0 4.4 3.5-5.1 mmol/L Chloride Level 109 113 98-107 mmol/L Carbon Dioxide Level 22 21 21-32 mmol/L Anion Gap 9.0 8.0 3-11 mmol/L Blood Urea Nitrogen 35 32 7-18 mg/dl Creatinine 1.70 1.50 0.60-1.40 mg/dl Est Creatinine Clear Calc Drug Dose 50.9 56.0 ml/min Estimated GFR () 49.4 57.4 Estimated GFR (Non- 42.6 49.5 BUN/Creatinine Ratio 20.5 21.6 10-20 Random Glucose 135 132 70-99 mg/dl Calcium Level 8.2 7.7 8.5-10.1 mg/dl Total Bilirubin 1.4 0.2-1 mg/dl Direct Bilirubin 0.2 0-0.2 mg/dl Aspartate Amino Transf (AST/SGOT) 12 15-37 U/L Alanine Aminotransferase (ALT/SGPT) 58 12-78 U/L Alkaline Phosphatase 78 45-117 U/L Total Creatine Kinase 53 35 39-308 U/L Creatine Kinase MB < 0.5 < 0.5 0.5-3.6 ng/ml Creatine Kinase MB Ratio 0-3.0 Troponin I < 0.015 < 0.015 < 0.015 0-0.045 ng/ml Total Protein 6.5 6.4-8.2 gm/dl Albumin 3.0 3.4-5.0 gm/dl Lipase 324 73-393 U/L Magnesium Level 2.2 1.8-2.4 mg/dl Diagnostic Radiology Patient Name: ALEJANDRO MARTIN JR Unit Number: [id number] Dictated: 11/15/161850 Transcribed: 11/15/161850 MS Printed Date/Time: [~ rep prt dt]/[~ rep prt tm] [~ rep ct labl] - [~ rep ct ivnm] [facility] [place] [address] Dictated: 11/15/161850 Transcribed: 11/15/161850 MS Printed Date/Time: [~ rep prt dt]/[~ rep prt tm] [~ rep ct labl] - [~ rep ct ivnm] CHEST ONE VIEW PORTABLE CLINICAL HISTORY: CHEST PAIN dyspnea COMPARISON STUDY: 03/03/2016 FINDINGS: The bones soft tissues and hemidiaphragms are normal. The cardiomediastinal silhouette is normal. The lungs are clear. The pulmonary vasculature is normal. IMPRESSION: Negative chest. Electronically signed by: Willy Lan M.D. 11/15/2016 6:51 PM Dictated Date/Time: 11/15/2016 6:51 PM The status of this report is Signed. Draft = Not yet reviewed or approved by Radiologist. Signed = Reviewed and approved by Radiologist. <AttendingPhy></AttendingPhy> <FamilyPhy>Arian Calvo D.O.Int.Med.</ FamilyPhy> <PrimaryPhy>Arian Calvo D.OCarmenInt.Med.</PrimaryPhy> <UnitNumber> [id number]</UnitNumber> <VisitNumber>[id number]</VisitNumber> <PatientName> ALEJANDRO MARTIN JR</PatientName> <DateOfBirth>1955</DateOfBirth> <Location> [facility]</Location> <ServiceDate>11/15/16</ServiceDate> <MNE>ESINDI</MNE> < OrderingPhy>Glenn Maradiaga D.O.</OrderingPhy> <OrderingPhyMNE>f rep ord dr zaidi</OrderingPhyMNE> <DictatingPhyMNE>f rep dict dr zaidi</DictatingPhyMNE> < CCListMNE>f rep ct mne</CCListMNE> <AdmittingPhyMNE>f pt admit dr zaidi</ AdmittingPhyMNE> <AttendingPhyMNE>f pt attend dr zaidi</AttendingPhyMNE> <ConsultingPhyMNE>f pt consult dr zaidi</ConsultingPhyMNE> <FamilyPhyMNE>f pt fam dr zaidi</FamilyPhyMNE> <OtherPhyMNE>f pt other dr zaidi</OtherPhyMNE> < PrimaryPhyMNE>f pt prim care dr zaidi</PrimaryPhyMNE> <ReferringPhyMNE>f pt referring dr zaidi</ReferringPhyMNE> EKG EKG shows normal sinus rhythm at 72 bpm, there are no acute ST-T changes. Impression Assessment and Plan CAD/hypertension/coronary artery stents 2 in 2014/unstable angina--the patient will be admitted to the telemetry unit for serial cardiac enzymes, cardiac rhythm monitoring and a 2-D echocardiogram with Dopplers. I'm starting him on heparin infusion standard dosing with bolus per protocol, and add Nitropaste 1 inch anterior chest wall every 6 hours. Continue aspirin 81 mg by mouth every morning and metoprolol tartrate 25 mg by mouth twice a day. Hold losartan 50 mg by mouth every morning. Acute renal insufficiency--hold losartan 50 mg by mouth every morning, and placed on normal saline at 100 mils per hour. We will repeat BMP and magnesium level in a.m. Hypercholesterolemia--continue atorvastatin 80 mg by mouth every a.m, and fish oil 1 capsule by mouth twice a day. Vitamin B12 deficiency--continue cyanocobalamin 1000 g by mouth daily. Level of Care Telemetry Advanced Directives Existing Advance Directive: No Existing Living Will: No Existing Power of Psychiatric Attendant: No Resuscitation Status FULL RESUSCITATION VTE Prophylaxis VTE Risk Assessment Done? Y/N: Yes Risk Level: High Given or contraindicated: Other Anticoagulation (heparin IV standard dosing per protocol.), SCD's
[2016-11-16 03:47] VITALS: BP 99/64; PULSE 60; TEMP 36.7; O2SAT 95
[2016-11-16] MEDS: NITROGLYCERIN 2% OINTMENT 30GM TUBE EXT SCH (04:25)
[2016-11-16 07:15] VITALS: BP 109/69; PULSE 62; TEMP 36.7; O2SAT 96
[2016-11-16] MEDS: SODIUM CHLORIDE 0.9% 1000ML 1,000 ML IV SCH (07:45)
[2016-11-16] MEDS: OMEGA-3 (PURIFIED FISH OIL) 1 GM CAP PO SCH (07:46)
[2016-11-16] MEDS: METOPROLOL TARTRATE 25 MG TAB PO SCH (07:46)
[2016-11-16] MEDS ORDERED: CYANOCOBALAMIN 500 MCG TAB (VIT B-12) PO SCH (09:00)
[2016-11-16] MEDS ORDERED: ASPIRIN 81 MG ECTAB PO SCH ×2 (09:00)
[2016-11-16] MEDS ORDERED: ATORVASTATIN 40 MG TAB PO SCH (09:00)
[2016-11-16] MEDS ORDERED: CHOLECALCIFEROL 1000 INTER.UNIT TAB PO SCH (09:00)
[2016-11-16] MEDS ORDERED: ASPI325T45 PO (09:35)
[2016-11-16] MEDS ORDERED: NTRSLP4 UT (09:35)
--- NOTE | 2016-11-16 09:44 | Discharge Instructions ---
Discharge Instructions Date of Service Nov 16, 2016. Admission Reason for Admission: Stented Coronary Artery, Unstable Angina Discharge Discharge Diagnosis / Problem: Chest pain Discharge Goals Goal(s): Decrease discomfort, Improve function, Increase independence, Improve disease control Activity Recommendations Activity Limitations: per Instructions/Follow-up section Lifting Limitations: no more than 10 pounds, until after follow-up appointment Exercise/Sports Limitations: rest today, until after follow-up appointment May Resume Sexual Activity: after follow-up appointment Shower/Bathe: no limitations Driving or Machine Use: no limitations . Instructions / Follow-Up Instructions / Follow-Up You were admitted to [facility] with chest pain - Cardiac enzymes were trended and were negative for cardiac ischemia (signs of heart injury). You also had EKGs completed which were negative for signs of ischemia. You were placed on a heparin drip during admission to thin your blood but was able to be turned off. You have been placed on a full dose aspirin in place of heparin. - DO NOT do any physical activity which is straining until after your follow up with cardiology, and until you have an exercise stress test. See above for details and limitations. - You will be called to schedule the exercise stress test. Results should be gone over by cardiology with you. Follow up: Complete exercise stress test within the next few days Follow up with your Primary Care Provider within 1 week. Follow up with Cardiology within 1 week. Continue taking all medications as prescribed: - Continue taking nitroglycerin tablets 0.4 mg as needed for chest pain. You may take 1 tablet, every 5 minutes, up to three times in a row. If your pain is not resolved then call your PCP or go directly to the Emergency department. Imaging studies which were completed include Chest xray, and were normal. Current Hospital Diet Patient's current hospital diet: AHA Diet (Heart Healthy), Diabetes Type 2 Diet Discharge Diet Recommended Diet: AHA Diet (Heart Healthy), Diabetes Type 2 Diet Pending Studies Studies pending at discharge: no Laboratory Results Hemoglobin A1c Test 11/15/16 18:25 Range/Units Medical Emergencies . Who to Call and When: Medical Emergencies: If at any time you feel your situation is an emergency, please call 911 immediately. . Non-Emergent Contact Non-Emergency issues call your: Primary Care Provider, Telephone Information Clerk Call Non-Emergent contact if: you have a fever, temperature is above 100.5, your pain is not controlled, your pain is worsening, your pain is unusual for you, your pain is concerning you, you have any medication questions You develop worsening shortness of breath, chest pain, palpitations, flutter, lightheadedness, dizziness, or if you have any other concerns about your health. . . "Provider Documentation" section prepared by Crystal Breen. . VTE Core Measure Inpt VTE Proph given/why not?: Other Anticoagulation (heparin IV standard dosing per protocol.), SCD's
[2016-11-16 10:18] VITALS: BP 109/69; PULSE 62; TEMP 36.7; O2SAT 96
--- NOTE | 2016-11-16 11:23 | Discharge Summary ---
Discharge Summary Date of Service Nov 16, 2016. (Sun Breen PA-C) Discharge Summary Admission Date: Nov 15, 2016 at 19:43 Discharge Date: Nov 16, 2016 Discharge Disposition: Home Principal Diagnosis: Chest Pain Problems/Secondary Diagnoses: CAD, hypertension, coronary artery stents 2 in 2014, unstable angina Immunizations: Have You Had Influenza Vaccine: N/A Influenza Vaccine Date: Mar 01, 2009 History of Tetanus Vaccine?: Yes Tetanus Immunization Date: Apr 01, 2006 History of Pneumococcal: No History of Hepatitis B Vaccine: No Procedures: [facility] Radiology Department [place] [id number] Dictated: 11/15/16 185 Transcribed: 11/15/16 1851 MS Printed Date/Time: / - CHEST ONE VIEW PORTABLE CLINICAL HISTORY: CHEST PAIN dyspnea COMPARISON STUDY: 03/03/2016 FINDINGS: The bones soft tissues and hemidiaphragms are normal. The cardiomediastinal silhouette is normal. The lungs are clear. The pulmonary vasculature is normal. IMPRESSION: Negative chest. Electronically signed by: Willy Lan M.D. 11/15/2016 6:51 PM Dictated Date/Time: 11/15/2016 6:51 PM The status of this report is Signed. Draft = Not yet reviewed or approved by Radiologist. Consultations: None (Sun Breen PA-C) Medication Reconciliation New Medications: Aspirin (Aspirin) 325 Mg Tab 1 TAB PO DAILY for 30 Days, #30 TAB Nitroglycerin (Nitrostat) 0.4 Mg/1 Tab Subl 0.4 MG UT UD PRN for Chest Pain for 15 Days, #90 TAB Continued Medications: Atorvastatin (Lipitor) 80 Mg Tab 80 MG PO QAM, TAB Cholecalciferol (Vitamin D3) 1,000 Unit Tab 2000 UNITS PO DAILY Cyanocobalamin (Vitamin B-12 1000 Mcg) 1,000 Mcg Tab 1000 MCG PO DAILY, TAB Fish Oil ([place]-3) 1 Ea Cap 1 CAP PO BID, CAP Losartan Potassium (Cozaar) 50 Mg Tab 50 MG PO QAM, TAB Metoprolol Tartrate (Lopressor) (Lopressor) 25 Mg Tab 25 MG PO BID Ondansetron Hcl (Zofran) 4 Mg Tab 4-8 MG PO PRN PRN for Nausea, TAB Discontinued Medications: Aspirin (Aspirin Ec) 81 Mg Tab 81 MG PO QAM Nitroglycerin (Nitrostat) 0.4 Mg Tab 0.4 MG UT PRN, BTL Discharge Exam The patient was seen and examined this morning. Pt reports doing well, he has no chest pain at all. He denies any shortness of breath with ambulation to the bathroom. He denies any lightheadedness, dizziness, or palpitations. He ate breakfast this morning, denies abdominal complaints including pain n/v/d/c. Review of Systems: Constitutional: No fever, No chills, No sweats, No fatigue Eyes: No redness, No diplopia ENT: No sore throat Respiratory: No cough, No shortness of breath, No dyspnea on exertion, No dyspnea at rest Cardiovascular: No chest pain, No edema Abdomen: No pain, No nausea, No vomiting, No diarrhea, No constipation Musculoskeletal: No joint pain, No muscle pain, No swelling, No calf pain Neurologic: No numbness/tingling Endocrine: No fatigue Integumentary: No rash, No itch Physical Exam: General Appearance: WD/WN, no apparent distress Eyes: PERRL, EOMI ENT: hearing grossly normal, pharynx normal Neck: supple, no JVD Respiratory/Chest: chest non-tender, lungs clear, normal breath sounds, no respiratory distress, no accessory muscle use Cardiovascular: regular rate, rhythm, no JVD, no murmur, normal peripheral pulses Abdomen / GI: non tender, soft, no organomegaly Extremities: normal inspection, no calf tenderness, no pedal edema, normal range of motion Neurologic/Psychiatric: no motor/sensory deficits, alert, normal mood/affect , oriented x 3 Skin: normal color, warm/dry (Sun Breen PA-C) Hospital Course H&P per Yung Pierre MD. History of Present Illness Source: patient, spouse The patient is a 61-year-old male who presents to emergency department for cardiac assessment. He woke up this morning around 6:30 with tightness across his chest that did improve on its own. He then ate breakfast, and then went out to work in his workroom. The tightness returned at that time, and his reports that he developed shortness of breath and severe sweats as well. He and his reports that he has had shortness of breath over the past week, in particular when he's been exerting himself. He does have a previous history in 2015 of an DE with 2 cardiac stent placements, and reports that these symptoms are similar to those at that time. At this point in the emergency department, he still feels chest tightness at a rating of 3-4 out of 10, and feels very fatigued.CAD/hypertension/coronary artery stents 2 in 2014/unstable angina-- the patient will be admitted to the telemetry unit for serial cardiac enzymes, cardiac rhythm monitoring and a 2-D echocardiogram with Dopplers. I'm starting him on heparin infusion standard dosing with bolus per protocol, and add Nitropaste 1 inch anterior chest wall every 6 hours. Continue aspirin 81 mg by mouth every morning and metoprolol tartrate 25 mg by mouth twice a day. Hold losartan 50 mg by mouth every morning. Physical Exam:: The patient is awake, well-developed and adequately nourished, alert and oriented 3, normocephalic and atraumatic, looks fatigued, lying in bed and in otherwise no acute distress. HEENT--PERRL, EOMI, mucous membranes and oropharynx normal. Neck--supple, no JVD or bruits, thyroid normal, trachea midline, no adenopathy. Heart--normal S1 and S2, no extra beats, no murmurs, rubs or gallops. Lungs--clear bilaterally with good air movement, no respiratory distress, no accessory muscle use. Abdomen--normal bowel sounds and soft, nontender and nondistended, no hernias or masses, no organomegaly. Extremities--no cyanosis, clubbing or edema. There are good distal pulses b/l. Dermatologic--normal skin turgor, normal color, warm and dry, no abnormal lymph nodes, no rash. Neurologic--cranial nerves II through XII grossly intact. Rheumatologic--normal range of motion, nontender, muscles and joints. Psychiatric--normal affect. Hospital Course: The patient was started on a heparin gtt and nitropaste for acute chest discomfort. His cardiac biomarkers were trended and negative x 3. He had no EKG changes on initial or repeat EKGs. His pain resolved completely. The patient ate breakfast this morning, and due to the nature of it being a weekend , he would be unable to have an exercise stress test until tomorrow at the earliest. He has been set up for an outpatient stress test by nurse navigator at the earliest appointment possible, within 1-2 days. 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 He was started on full dose aspirin and given a prescription for nitroglycerine tablets with instructions. Pt is agreeable to limitations as per discharge instructions. Acute renal insufficiency- - Cr. improved to 1.5 with IVFs. Pt was encouraged to drink water to continue to improve Cr. Repeat magnesium level was WNL. Hypercholesterolemia- -continue atorvastatin 80 mg by mouth every a.m, and fish oil 1 capsule by mouth twice a day. Vitamin B12 deficiency- -continue cyanocobalamin 1000 g by mouth daily. DVT ppx: heparin gtt CODE STATUS: FULL Disposition: Pt discharged to home today. Total Time Spent: Greater than 30 minutes This includes examination of the patient, discharge planning, medication reconciliation, and communication with other providers. (Sun Breen PA-C) [facility] Physician Supervision Note: I interviewed and examined the patient. Discussed with Sun Breen PAC and agree with findings and plan as documented in the note. Any exceptions or clarifications are listed here: None Pt here with chest pain now resolved, normal enzymes and ECG, will have home with nitro and instructions for non strenuous activity and schedule outpt stress testing vital stable able to ambulate without symptoms follow up for outpt stress testing Documented By: Familia Vickers (Familia Vickers M.D.) Discharge Instructions Please refer to the electronic Patient Visit Report (Discharge Instructions) for additional information. (Sun Breen, DORIAN) Follow-Up Follow up with your Primary Care Provider within 1 week. Follow up with cardiology within 1 week Complete exercise stress test within 1-2 days, at the earliest availability. (Sun Breen PA-C) Additional Copies To Arian Calvo D.O.Int.Med.
[2016-11-17 08:07] LABS: ESTIMATED AVERAGE GLUCOSE 117 mg/dl; HA1C FLAG Normal (Normal)
== END 2016-11-16 10:28 | disposition home or self-care (01) | DRG 303 ==
LOC: C.EDB 17:48 → C.2T 19:43 → ENRESERV 20:00
PROVIDERS: ADMIT Hospitalist; ATTEND Hospitalist
DX: I25.110 Atherosclerotic heart disease of native coronary artery with unstable angina pectoris (principal); E53.0 Riboflavin deficiency; N17.9 Acute kidney failure, unspecified; E78.00 Pure hypercholesterolemia, unspecified; I10 Essential (primary) hypertension; Z95.5 Presence of coronary angioplasty implant and graft; Z79.899 Other long term (current) drug therapy; Z79.82 Long term (current) use of aspirin

== ENCOUNTER → 2016-11-21 | Outpatient (CLI) | payer BC ==
[~2016-11-21] MED LIST changes: +ASPI325T45 PO; -ASPI81TA28 PO; +CHOL1000 PO; -CHOL100010 PO; +CYAN10004 PO; -HYDR-5688 PO; -NTRGSL/4 UT; +NTRSLP4 UT; -VITAMIN B12 PO
[2016-11-21 14:45] LABS: BASO % 0.2 %; BASO ABS # 0.02 K/uL (0-0.2); COMPLETE YES; EOS % 0.9 %; HEMATOCRIT 43.2 % (42-52); IG% 0.8 %; LYMPH % 23.2 %; LYMPH ABS # 3.09 K/uL (1.2-3.4); MEAN CELL VOLUME 88.7 fL (80-100); MEAN CORPUSCULAR HGB CONC 33.8 g/dl (32-36); MEAN PLATELET VOLUME 9.3 fL (7.4-10.4); MONO % 9.5 %; NEUT % 65.4 %; PLATELET COUNT 193 K/uL (130-400); RED BLOOD COUNT 4.87 M/uL (4.7-6.1)
== END | disposition home or self-care (01) ==
LOC: C.LAB1850 13:49
PROVIDERS: ATTEND Family Medicine
DX: R53.83 Other fatigue (principal); D72.829 Elevated white blood cell count, unspecified

== ENCOUNTER → 2016-11-25 | Outpatient (CLI) | payer BC | END | disposition home or self-care (01) | LOC: C.LABBC 10:58 | PROVIDERS: ATTEND Family Medicine | DX: R06.02 Shortness of breath (principal) ==

== ENCOUNTER → 2016-12-04 | Outpatient (CLI) | payer BC ==
[~2016-12-04] MED LIST changes: +PERFLUTREN LIPID MICROSPHERE (DEFINITY) IV ONE
--- NOTE | 2016-12-05 18:06 | EXERCISE STRESS ECHO ---
*NOTICE TO RECEIVING [employer] This information is strictly Confidential and protected under [place] law. [place] law prohibits you from making any further disclosure of this information unless further disclosure is expressly permitted by the written consent of the person to whom it pertains or is authorized by law. A general authorization for the release of medical or other information is not sufficient for this purpose. Hospital accepts no responsibility if the information is made available to any other person, INCLUDING THE PATIENT. Interpretation Summary * Name: ALEJANDRO MARTIN JR Study Date: 12/04/2016 09:17 AM BP: 118/81 mmHg * Patient Location: [facility] HR: 66 * : 1955 (M/d/yyyy) Gender: Male Height: 69 in * Age: 61 yrs Ethnicity: CA Weight: 209 lb * Ordering Physician: Sun Breen * Referring Physician: Sun Breen PA-C * Performed By: America Tan RDCS * * Reason For Study: CAD * BSA: 2.1 m2 * -- Conclusions -- * Left ventricular systolic function is normal. * Grade I diastolic dysfunction, (abnormal relaxation pattern). * Right ventricular systolic pressure is normal. * Diagnostic exercise echocardiogram without evidence of inducible ischemia. Procedure Details * ECHOEX, CPT #76179 * ECHO DOPPLER, CPT #[id number] * ECHO COLOR FLOW, CPT #[id number] * A contrast injection of Definity was performed to improve assessment of LV function. * Contrast was injected into an intravenous site in the right arm. * One vial of Definity ultrasound contrast was diluted in normal saline to a total volume of 10 ml. A total of '5' ml of solution was administered during imaging. * Lot # [id number] of Definity utilized for procedure. * Expiration date JAN 16. * The attending nurse who injected the contrast agent was Nissa Murillo RN. Left Ventricular Findings with Stress * Diagnostic exercise echocardiogram without evidence of inducible ischemia. Left Ventricle * The left ventricle is normal in size. * There is normal left ventricular wall thickness. * Ejection Fraction = 55-60%. * Left ventricular systolic function is normal. * Grade I diastolic dysfunction, (abnormal relaxation pattern). * The left ventricular wall motion is normal. Right Ventricle * The right ventricle is normal in size and function. Atria * The left atrial size is normal. * Right atrial size is normal. Mitral Valve * The mitral valve anatomy is normal. * Significant mitral regurgitation is absent. Tricuspid Valve * The tricuspid valve is not well visualized, but is grossly normal. * There is trace tricuspid regurgitation. * Right ventricular systolic pressure is normal. Aortic Valve * The aortic valve is not well visualized. * No hemodynamically significant valvular aortic stenosis. * There is no significant aortic regurgitation. Great Vessels * The aortic root is normal size. Pericardium * There is no pericardial effusion. Stress Parameters * Normal baseline electrocardiogram. * Stress ECG: No ST changes. No arrhythmias. * The stress portion of this study was personally supervised by the undersigned interpreting physician. * Rest heart rate was '66' BPM. * Rest blood pressure was '118/81' * Maximum heart rate achieved was 136 bpm. * Maximum heart rate was 85 % of maximum age-predicted heart rate. * Maximum blood pressure was '182/73' * Total exercise time was '8:25' * Maximum exercise MET level achieved was '9.60' METS * Maximum treadmill speed was '3.40' miles per hour. * Maximum treadmill elevation was '14.20'% grade. * Exercise was terminated due to 'achieving target heart rate' Left Ventricular Findings with Stress * Normal baseline EKG without ischemic changes during exercise. Normal baseline echocardiogram. Normal augmentation without inducible wall motion abnormalities Normal heart rate and BP response to exercise. No symptoms reported Cobian treadmill score: 8 (low risk) MMode 2D Measurements and Calculations IVSd 1.3 cm LVIDd 4.2 cm LVIDs 2.8 cm LVPWd 1.0 cm IVS/LVPW 1.3 FS 32.6 % EDV(Teich) 76.5 ml ESV(Teich) 29.5 ml EF(Teich) 61.4 % EDV(cubed) 71.6 ml ESV(cubed) 21.9 ml EF(cubed) 69.4 % LV mass(C)d 161.9 grams LV mass(C)dI 76.9 grams/m\S\2 SV(Teich) 47.0 ml SI(Teich) 22.3 ml/m\S\2 SV(cubed) 49.7 ml SI(cubed) 23.6 ml/m\S\2 Ao root diam 3.5 cm Ao root area 9.7 cm\S\2 ACS 2.0 cm LA dimension 2.7 cm asc Aorta Diam 4.0 cm LA/Ao 0.77 LVOT diam 2.0 cm LVOT area 3.1 cm\S\2 LVAd ap4 25.1 cm\S\2 LVLd ap4 8.1 cm EDV(MOD-sp4) 62.5 ml EDV(sp4-el) 65.9 ml LVAs ap4 14.4 cm\S\2 LVLs ap4 6.6 cm ESV(MOD-sp4) 27.2 ml ESV(sp4-el) 26.7 ml EF(MOD-sp4) 56.5 % EF(sp4-el) 59.5 % LVAd ap2 20.8 cm\S\2 LVLd ap2 7.9 cm EDV(MOD-sp2) 45.1 ml EDV(sp2-el) 46.2 ml LVAs ap2 12.1 cm\S\2 LVLs ap2 6.6 cm ESV(MOD-sp2) 19.8 ml ESV(sp2-el) 18.7 ml EF(MOD-sp2) 56.0 % EF(sp2-el) 59.5 % LVLd %diff -2.55 % EDV(MOD-bp) 53.9 ml LVLs %diff 1.0 % ESV(MOD-bp) 23.3 ml EF(MOD-bp) 56.8 % SV(MOD-sp4) 35.3 ml SI(MOD-sp4) 16.8 ml/m\S\2 SV(MOD-sp2) 25.3 ml SI(MOD-sp2) 12.0 ml/m\S\2 SV(MOD-bp) 30.6 ml SI(MOD-bp) 14.5 ml/m\S\2 SV(sp4-el) 39.2 ml SI(sp4-el) 18.6 ml/m\S\2 SV(sp2-el) 27.5 ml SI(sp2-el) 13.1 ml/m\S\2 Doppler Measurements and Calculations MV E max mary 59.7 cm/sec MV A max mary 74.7 cm/sec MV E/A 0.80 MV dec time 0.33 sec Ao V2 max 108.6 cm/sec Ao max PG 4.7 mmHg Ao max PG (full) 1.5 mmHg LINO(V,A) 2.6 cm\S\2 LINO(V,D) 2.6 cm\S\2 LV V1 max PG 3.3 mmHg LV V1 max 90.2 cm/sec PA V2 max 93.7 cm/sec PA max PG 3.5 mmHg PA acc slope 523.5 cm/sec\S\2 PA acc time 0.12 sec PI max mary 146.6 cm/sec PI max PG 8.6 mmHg PI dec slope 142.8 cm/sec\S\2 PI P1/2t 300.7 msec TR max mary 186.0 cm/sec PA pr(Accel) 23.5 mmHg
== END | disposition home or self-care (01) ==
LOC: C.CPL 09:11
PROVIDERS: ATTEND Physician Assistant
DX: I25.10 Atherosclerotic heart disease of native coronary artery without angina pectoris (principal); I10 Essential (primary) hypertension; E78.5 Hyperlipidemia, unspecified

== ENCOUNTER 2017-07-30 20:04 | Inpatient (IN) | payer BC ==
[~2017-07-30] VITALS: Ht 175.3 cm; Wt 96.0 kg
[~2017-07-30 20:04] MED LIST changes: -ATOR-26 PO; -CHOL1000 PO; -CYAN10004 PO; -METO25TA56 PO; -OMEG10007 PO; -PERFLUTREN LIPID MICROSPHERE (DEFINITY) IV ONE
[2017-07-30] MEDS ORDERED: MoRPHine SULFATE 4 MG/ML 1 ML CARP\\VIAL IV STA (21:28)
[2017-07-30] MEDS ORDERED: ONDANSETRON INJ 2 MG/ML 2 ML VIAL IV STA (21:28)
[2017-07-30] MEDS ORDERED: SODIUM CHLORIDE 0.9% 1000ML 1,000 ML IV STA ×2 (21:28)
[2017-07-30 21:35] LABS: BASO % 0.2 %; BASO ABS # 0.02 K/uL (0-0.2); EOS % 0.5 %; EOS ABS # 0.06 K/uL (0-0.5); HEMOGLOBIN 17.1 g/dL (14.0-18.0); IG# 0.04 K/uL (0.00-0.02); LYMPH % 6.7 %; LYMPH ABS # 0.77 K/uL (1.2-3.4); MEAN CORPUSCULAR HEMOGLOBIN 30.9 pg (25-34); MEAN CORPUSCULAR HGB CONC 36.4 g/dl (32-36); MEAN PLATELET VOLUME 9.2 fL (7.4-10.4); MONO % 9.2 %; MONO ABS # 1.06 K/uL (0.11-0.59); NEUT % 83.1 %; NEUT ABS # 9.57 K/uL (1.4-6.5); PLATELET COUNT 127 K/uL (130-400); RED CELL DISTRIBUTION WIDTH SD 36.7 fL (36.4-46.3); WHITE BLOOD COUNT 11.52 K/uL (4.8-10.8)
[2017-07-30 21:54] LABS: ALBUMIN 3.6 gm/dl (3.4-5.0); ALT/SGPT 64 U/L (12-78); BLOOD UREA NITROGEN 15 mg/dl (7-18); CALCIUM 9.3 mg/dl (8.5-10.1); CARBON DIOXIDE 24 mmol/L (21-32); CREATININE 1.26 mg/dl (0.60-1.40); GLUCOSE 120 mg/dl (70-99); POTASSIUM 3.5 mmol/L (3.5-5.1); SODIUM 138 mmol/L (136-145)
[2017-07-30 21:59] LABS: ALKALINE PHOSPHATASE 82 U/L (45-117); AST/SGOT 32 U/L (15-37); CKMB < 0.5 ng/ml (0.5-3.6); TOTAL PROTEIN 7.3 gm/dl (6.4-8.2)
[2017-07-30] MEDS ORDERED: OPTIRAY 320 IV PRN (22:00)
--- NOTE | 2017-07-30 22:05 | DIAGNOSTIC IMAGING REPORT ---
CHEST ONE VIEW PORTABLE CLINICAL HISTORY: 61 years-old Male presenting with fever. TECHNIQUE: Portable upright AP view of the chest was obtained. COMPARISON: 11/15/2016. FINDINGS: Atherosclerosis of aortic arch. Cardiac silhouette mildly enlarged, although this may in part be due to AP technique. Lungs and pleural spaces clear. Osseous structures normal. Upper abdomen normal. IMPRESSION: 1. No acute cardiopulmonary disease. Electronically signed by: Randolph Calhoun M.D. 07/30/2017 10:03 PM Dictated Date/Time: 07/30/2017 10:03 PM
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
[2017-07-30] MEDS ORDERED: PIPERACILLIN/TAZOBACTAM 4.5 GM/100ML D5W IV STA (23:06)
[2017-07-30] MEDS ORDERED: ACETAMINOPHEN 325 MG TAB PO ONE (23:12)
[2017-07-30] MEDS ORDERED: METOPROLOL TARTRATE 50 MG TAB PO ONE (23:23)
[2017-07-31] MEDS ORDERED: METRONIDAZOLE / NSS 500 MG in PREMIXED NSS 100 ML IV ONE
[2017-07-31] MEDS ORDERED: TRAMADOL HCL 50 MG TAB PO PRN
[2017-07-31] MEDS ORDERED: PROCHLORPERAZINE INJ 5 MG in SYRINGE 4 ML IV PRN
[2017-07-31] MEDS ORDERED: LORAZEPAM 2 MG/ML 1 ML VIAL IV PRN ×2 (00:15)
[2017-07-31 00:25] VITALS: BP 113/79; PULSE 108; TEMP 37.2; O2SAT 92; BMI 31.3
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
[2017-07-31] MEDS ORDERED: MAGNESIUM SULFATE 1GM / D5W 1 GM in PREMIXED IN D5W 100 ML IV ONE (01:30)
[2017-07-31] MEDS ORDERED: NSS + 20MEQ KCL 1000ML 1,000 ML IV ONE (01:30)
[2017-07-31] MEDS: METRONIDAZOLE / NSS 500 MG in PREMIXED NSS 100 ML IV SCH ×3 (01:46→23:19)
[2017-07-31 02:09] LABS: ISTAT CREATININE 1.3 mg/dl (0.6-1.3); ISTAT IONIZED CALCIUM 1.15 mmol/l (1.12-1.32); ISTAT POTASSIUM 3.7 mEq/L (3.3-5.0)
[2017-07-31] MEDS ORDERED: LORAZEPAM INJ 0.5 MG in SYRINGE 0.75 ML IV PRN (03:15)
--- NOTE | 2017-07-31 05:06 | HISTORY & PHYSICAL EXAMINATION ---
DATE OF ADMISSION: 07/30/2017 PRIMARY CARE DOCTOR: Dr. Lucero. HISTORY OF PRESENT ILLNESS: Medical history significant for hypertension, CAD status post stenting, diverticulosis, urolithiasis. Recent confinement October 2016 for left-sided chest pain. This morning, patient had a lower abdominal pain, achy, initially constipated followed by bloody bowel movement, reminiscent of diverticulitis episodes in the past. No hematemesis or coffee-ground emesis. Patient later had fever, chills. Denies bladder discomfort or burning or flank pain which is usual for his kidney stone pain. No hematuria. No chest pain, no shortness of breath. At the Emergency Room, patient received Zosyn for sepsis. MEDICAL HISTORY: As above. Colonoscopy from December 2009 showed aphthous ulcerations, sigmoid and rectum. Multiple sigmoid diverticula. SURGERIES: He has had urologic procedures, cholecystectomy. HOME MEDICATIONS: Include aspirin, Lipitor, vitamin D3, vitamin B, fish oil, and Lopressor. ALLERGIES: OXYCODONE. FAMILY HISTORY: Heart disease. PERSONAL AND SOCIAL HISTORY: Nonsmoker, no chronic alcohol intake. 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 REVIEW OF SYSTEMS: As per HPI. All 10 systems reviewed, all other ROS negative. PHYSICAL EXAMINATION: VITAL SIGNS: Blood pressure was noted to be 158/87, later 120/80 pulse rate 105, RR 18, temperature 38, sats 98 on room air. GENERAL: Noted to be slightly uncomfortable, obese, no respiratory distress, pleasant. SKIN: Normal color, warm. HEENT: [place] palpebral conjunctivae. No ptosis. Dry mucosa. NECK: Short, supple. CHEST: Clear to auscultation. No tenderness. HEART: Tachycardic. No murmur. ABDOMEN: Hypogastric tenderness, some distention. EXTREMITIES: No edema. No gross deformities. No tenderness. NEUROLOGIC: Coherent, no gross focality. LABORATORY DATA: Hemoglobin was noted to be 17.1, hematocrit 47 platelets noted to be 127. Sodium noted to be 138, potassium 3.5, chloride 104, CO2 24, BUN 50, creatinine 1.6, glucose 120. IMAGING DATA: CT abdomen and pelvis showed nonobstructing 7 mm calculus, with reactive change, left renal pelvis, left ureter, no convincing evidence of obstruction, no left ureteral calculus, diverticulosis without diverticulitis; minimal vague infiltration, small bowel mesentery . ASSESSMENT AND PLAN: 1. Painful lower gastrointestinal bleeding. hx recurrent diverticulitis CT read negative for diverticulitis ? early diverticulitis. 2. Sepsis secondary to above. 3. Thrombocytopenia secondary to sepsis. 4. Coronary artery disease status post stenting.History of urolithiasis. 5. Hypertension, stable. GMF CS, IV Ceftriaxone, Flagyl IVF GI consult RE LGIB. DVT prophylaxis, SCDs RE thrombocytopenia. Full code. MTDD
[2017-07-31 06:23] LABS: BASO % 0.2 %; BASO ABS # 0.02 K/uL (0-0.2); EOS % 0.4 %; EOS ABS # 0.03 K/uL (0-0.5); HEMATOCRIT 43.2 % (42-52); HEMOGLOBIN 14.8 g/dL (14.0-18.0); IG# 0.03 K/uL (0.00-0.02); LYMPH % 11.2 %; LYMPH ABS # 0.94 K/uL (1.2-3.4); MEAN CELL VOLUME 87.8 fL (80-100); MEAN CORPUSCULAR HEMOGLOBIN 30.1 pg (25-34); MEAN CORPUSCULAR HGB CONC 34.3 g/dl (32-36); MEAN PLATELET VOLUME 9.2 fL (7.4-10.4); MONO % 7.3 %; MONO ABS # 0.61 K/uL (0.11-0.59); NEUT % 80.5 %; NEUT ABS # 6.76 K/uL (1.4-6.5); PLATELET COUNT 111 K/uL (130-400); RED CELL DISTRIBUTION WIDTH CV 12.1 % (11.5-14.5); RED CELL DISTRIBUTION WIDTH SD 38.6 fL (36.4-46.3); WHITE BLOOD COUNT 8.39 K/uL (4.8-10.8)
[2017-07-31 06:51] LABS: CALCIUM 8.2 mg/dl (8.5-10.1); CREATININE 1.28 mg/dl (0.60-1.40); POTASSIUM 4.2 mmol/L (3.5-5.1)
[2017-07-31 07:02] LABS: HEMOGLOBIN A1C 5.5 % (4.5-5.6)
[2017-07-31] MEDS: METOPROLOL TARTRATE 25 MG TAB PO SCH ×2 (07:37→21:58)
[2017-07-31] MEDS: ATORVASTATIN 40 MG TAB PO SCH (07:37)
[2017-07-31] MEDS: CEFTRIAXONE SOD INJ 1 GM in DEXTROSE 5% ADD-VANTAGE 50ML 50 ML IV SCH (07:38)
[2017-07-31] MEDS: ACETAMINOPHEN 325 MG TAB PO PRN ×3 (07:41→21:58)
[2017-07-31 08:28] VITALS: BP 135/84; PULSE 83; TEMP 37.3; O2SAT 93
--- NOTE | 2017-07-31 10:25 | Gastrointestinal Consultation ---
Gastrointestinal Consultation Date of Consultation: Jul 31, 2017 Attending Physician: Dr. Truong Consulting Physician: Dr. Glez/KIM Johnson Reason for Consultation: Abdominal pain and rectal bleeding History of Present Illness Patient is a 61 year old male with a history of GERD, gastropathy and nephrolithiasis admitted last evening after an abrupt onset of left lower quadrant pain that was associated with acute constipation and bright red bloody and loose bowel movement and fevers. States he has been noted to have chronically loose stools with a frequency of 2-3 times per day. Patient previously underwent a colonoscopy by Dr. Grey for evaluation of these symptoms and was noted to have aphthous ulcerations within the rectum and sigmoid colon. Patient reports that he was unaware of these endoscopic findings and no further evaluation or follow up was done per his report. Mr. Stack was scheduled for a screening colonoscopy in July with Dr. Glez but states he cancelled testing as "things came up". Testing on arrival demonstrated a normal hemoglobin of 14.[address] of the abdomen and pelvis was performed as he does have a self reported history of recurrent diverticulitis. Testing was negative for acute diverticulitis but significant for a left ureteral stone of 7 mm with associated stranding but without evidence of obstruction. UA was positive for 3+ blood. Patient did not feel like the pain he was experiencing was consistent with nephrolithiasis, however. He has been treated for nephrolithiasis in the past by Dr. Montes. Currently, the patient states he is not having any abdominal pain. No further rectal bleeding. No nausea or vomiting or other GI complaints. Past Medical/Surgical History Medical Problems: (1) Acute kidney injury Status: Acute (2) Diarrhea Status: Acute (3) GI bleed Status: Acute (4) Hydronephrosis Status: Acute (5) Left sided chest pain Status: Acute (6) Renal colic on left side Status: Acute (7) Renal stone Status: Acute Past Medical History: 1. CAD 2. NSTEMI 3. Cervical radiculopathy 4. Headaches 5. GERD and gastropathy 6. Anemia 7. Dyslipidemia 8. COPD 9. Renal insufficiency 10. Nephrolithiasis 11. Abnormal colonoscopy Past Surgical History: 1. EGD 2. Colonoscopy 3. Cardiac catheterization with stent placement 4. Knee surgery 5. Lithotripsy Family History Patient reports no known family medical history. Negative for GI malignancy or IBD Social History Smoking Status: Never Smoker Alcohol Use: none Drug Use: none Marital Status: Housing Status: lives with family Occupation Status: retired Allergies Coded Allergies: Oxycodone (Verified Allergy, Unknown, PERCOCET-Rash, 07/30/17) CAN USE VICODIN Current Medications Home Meds and Scripts Medications Dose Route/Sig Max Daily Dose Days Date Category Aspirin Ec (Aspirin) 81 Mg Tab 81 Mg PO DAILY 07/30/17 Reported Nitrostat (Nitroglycerin) 0.4 Mg/1 Tab Subl 0.4 Mg UT UD PRN 15 11/16/16 Rx Vitamin B-12 1000 Mcg (Cyanocobalamin) 1,000 Mcg Tab 1,000 Mcg PO DAILY 11/15/16 Reported Vitamin D3 (Cholecalciferol) 1,000 Unit Tab 2,000 Units PO BID 11/15/16 Reported Lopressor (Metoprolol Tartrate) 25 Mg Tab 25 Mg PO BID 12/05/14 Reported [place]-3 (Fish Oil) 1 Ea Cap 1 Cap PO BID 12/05/14 Reported Lipitor (Atorvastatin Calcium) 80 Mg Tab 80 Mg PO QAM 12/05/14 Reported Review of Systems Constitutional: + see HPI Eyes: No eye pain, No redness ENT: No problem reported Respiratory: No cough, No shortness of breath Cardiac: No chest pain, No palpitations Abdomen: + see HPI Musculoskeletal: No problem reported Male : No dysuria, No hematuria Neuro: No problem reported Psych: No problem reported Skin: No problem reported Physical Exam Date Time Temp Pulse Resp B/P (MAP) Pulse Ox O2 Delivery O2 Flow Rate FiO2 07/31/17 08:28 37.3 83 16 135/84 (101) 93 07/31/17 07:45 Room Air 07/31/17 00:25 37.2 108 18 113/79 92 Room Air 07/31/17 00:15 105 18 127/76 92 07/30/17 22:11 38.0 101 18 125/76 92 Room Air 07/30/17 21:32 108 07/30/17 20:09 38.5 119 18 158/87 92 Room Air General Appearance: WD/WN, no apparent distress Eyes: EOMI ENT: hearing grossly normal Neck: supple Respiratory/Chest: lungs clear, normal breath sounds, no respiratory distress Cardiovascular: regular rate, rhythm, no gallop, no murmur Abdomen: normal bowel sounds, non tender, soft Extremities: no pedal edema Neurologic/Psych: alert, normal mood/affect, oriented x 3 Skin: warm/dry Laboratory Results Last 24 Hours Test 07/30/17 21:15 07/30/17 21:30 07/30/17 21:34 07/30/17 22:15 White Blood Count 11.52 K/uL Red Blood Count 5.53 M/uL Hemoglobin 17.1 g/dL Hematocrit 47.0 % Mean Corpuscular Volume 85.0 fL Mean Corpuscular Hemoglobin 30.9 pg Mean Corpuscular Hemoglobin Concent 36.4 g/dl Platelet Count 127 K/uL Mean Platelet Volume 9.2 fL Neutrophils (%) (Auto) 83.1 % Lymphocytes (%) (Auto) 6.7 % Monocytes (%) (Auto) 9.2 % Eosinophils (%) (Auto) 0.5 % Basophils (%) (Auto) 0.2 % Neutrophils # (Auto) 9.57 K/uL Lymphocytes # (Auto) 0.77 K/uL Monocytes # (Auto) 1.06 K/uL Eosinophils # (Auto) 0.06 K/uL Basophils # (Auto) 0.02 K/uL RDW Standard Deviation 36.7 fL RDW Coefficient of Variation 12.0 % Immature Granulocyte % (Auto) 0.3 % Immature Granulocyte # (Auto) 0.04 K/uL Prothrombin Time 10.5 SECONDS Prothromb Time International Ratio 1.0 Sodium Level 138 mmol/L Potassium Level 3.5 mmol/L Chloride Level 104 mmol/L Carbon Dioxide Level 24 mmol/L Anion Gap 10.0 mmol/L 16.0 mmol/L Blood Urea Nitrogen 15 mg/dl Creatinine 1.26 mg/dl Est Creatinine Clear Calc Drug Dose 70.4 ml/min Estimated GFR () 70.9 Estimated GFR (Non- 61.2 BUN/Creatinine Ratio 12.1 Random Glucose 120 mg/dl Estimated Average Glucose 111 mg/dl Hemoglobin A1c 5.5 % Calcium Level 9.3 mg/dl Magnesium Level 1.6 mg/dl Total Bilirubin 1.6 mg/dl Direct Bilirubin 0.3 mg/dl Aspartate Amino Transf (AST/SGOT) 32 U/L Alanine Aminotransferase (ALT/SGPT) 64 U/L Alkaline Phosphatase 82 U/L Total Creatine Kinase 57 U/L Creatine Kinase MB < 0.5 ng/ml Creatine Kinase MB Ratio Troponin I < 0.015 ng/ml Total Protein 7.3 gm/dl Albumin 3.6 gm/dl Thyroid Stimulating Hormone (TSH) 1.070 uIu/ml Bedside Hemoglobin 15.6 g/dl Bedside Hematocrit 46 % Bedside Sodium 140 mEq/L Bedside Potassium 3.7 mEq/L Bedside Chloride 101 mEq/L Bedside Total CO2 28 mEq/l Bedside Blood Urea Nitrogen 18 mg/dl Bedside Creatinine 1.3 mg/dl Bedside Glucose (other) 120 mg/dl Bedside Ionized Calcium (Pola) 1.15 mmol/l Bedside Lactic Acid Venous 1.58 mmol/L Urine Color YELLOW Urine Appearance CLEAR Urine pH 5.0 Urine Specific [place] 1.018 Urine Protein NEG Urine Glucose (UA) NEG Urine Ketones NEG Urine Occult Blood 3+ Urine Nitrite NEG Urine Bilirubin NEG Urine Urobilinogen NEG Urine Leukocyte Esterase NEG Urine WBC (Auto) 1-5 /hpf Urine RBC (Auto) 5-10 /hpf Urine Hyaline Casts (Auto) 0 /lpf Urine Epithelial Cells (Auto) 0-5 /lpf Urine Bacteria (Auto) NEG Test 07/30/17 23:34 07/31/17 05:57 Lactic Acid Level 1.4 mmol/L White Blood Count 8.39 K/uL Red Blood Count 4.92 M/uL Hemoglobin 14.8 g/dL Hematocrit 43.2 % Mean Corpuscular Volume 87.8 fL Mean Corpuscular Hemoglobin 30.1 pg Mean Corpuscular Hemoglobin Concent 34.3 g/dl Platelet Count 111 K/uL Mean Platelet Volume 9.2 fL Neutrophils (%) (Auto) 80.5 % Lymphocytes (%) (Auto) 11.2 % Monocytes (%) (Auto) 7.3 % Eosinophils (%) (Auto) 0.4 % Basophils (%) (Auto) 0.2 % Neutrophils # (Auto) 6.76 K/uL Lymphocytes # (Auto) 0.94 K/uL Monocytes # (Auto) 0.61 K/uL Eosinophils # (Auto) 0.03 K/uL Basophils # (Auto) 0.02 K/uL RDW Standard Deviation 38.6 fL RDW Coefficient of Variation 12.1 % Immature Granulocyte % (Auto) 0.4 % Immature Granulocyte # (Auto) 0.03 K/uL Sodium Level 141 mmol/L Potassium Level 4.2 mmol/L Chloride Level 107 mmol/L Carbon Dioxide Level 28 mmol/L Anion Gap 6.0 mmol/L Blood Urea Nitrogen 13 mg/dl Creatinine 1.28 mg/dl Est Creatinine Clear Calc Drug Dose 69.3 ml/min Estimated GFR () 69.5 Estimated GFR (Non- 60.0 BUN/Creatinine Ratio 10.0 Random Glucose 100 mg/dl Calcium Level 8.2 mg/dl Magnesium Level 2.0 mg/dl Impression Patient is a 61 year old male with a history of nephrolithiasis, GERD, gastropathy and prior abnormal colonoscopy with findings of aphthous ulcerations within the rectum and sigmoid colon admitted with fevers and left lower quadrant pain with associated loose, bloody stool. Plan 1. Continue clear liquid diet. 2. Check stool for culture and C Diff if returning bloody diarrhea due to fevers. Await blood cultures as ordered. 3. Consult urology due to abnormal CT, UA and left lower quadrant pain. Patient follows with Dr. Montes. 4. Plan for bowel prep Thursday with Joanne. 5. Colonoscopy with Dr. Glez on Thursday. 6. Supportive care per primary team. Thank you for allowing us to participate in the care of this pleasant patient. If you have any questions or concerns, please do not hesitate to contact us. Agree with KIM Johnson as above Abd: Soft, NT, ND, +BS Appreciate input Continue current therapy Stool studies pending
--- NOTE | 2017-07-31 11:51 | Progress Note ---
Medicine Progress Note Date & Time of Visit: Jul 31, 2017 at 11:09. Subjective Pt was seen and examined Lying in bed with no distress Pt said that he feels fine now He said that he does not have any abdominal pain He said that his last bowel movement was yesterday around 1pm when he had the bloody BM denies any chest pain, palpitation, dizziness, fever, abdominal pain and SOB Objective Last 8 Hrs Date Time Temp Pulse Resp B/P (MAP) Pulse Ox O2 Delivery O2 Flow Rate FiO2 07/31/17 08:28 37.3 83 16 135/84 (101) 93 07/31/17 07:45 Room Air Physical Exam: General- no acute distress Head- atraumatic Eyes- PERRL, EOMI ENT- oropharynx clear Neck- supple, no JVD Lungs- clear to auscultation Heart- regular rhythm Abdomen- normal bowel sounds, nontender, + BS Extremities- no calf tenderness Neuro- alert, oriented x 3; PERRL, EOMI Skin- warm & dry Laboratory Results: Last 24 Hours Test 07/30/17 21:15 07/30/17 21:30 07/30/17 21:34 07/30/17 22:15 White Blood Count 11.52 K/uL Red Blood Count 5.53 M/uL Hemoglobin 17.1 g/dL Hematocrit 47.0 % Mean Corpuscular Volume 85.0 fL Mean Corpuscular Hemoglobin 30.9 pg Mean Corpuscular Hemoglobin Concent 36.4 g/dl Platelet Count 127 K/uL Mean Platelet Volume 9.2 fL Neutrophils (%) (Auto) 83.1 % Lymphocytes (%) (Auto) 6.7 % Monocytes (%) (Auto) 9.2 % Eosinophils (%) (Auto) 0.5 % Basophils (%) (Auto) 0.2 % Neutrophils # (Auto) 9.57 K/uL Lymphocytes # (Auto) 0.77 K/uL Monocytes # (Auto) 1.06 K/uL Eosinophils # (Auto) 0.06 K/uL Basophils # (Auto) 0.02 K/uL RDW Standard Deviation 36.7 fL RDW Coefficient of Variation 12.0 % Immature Granulocyte % (Auto) 0.3 % Immature Granulocyte # (Auto) 0.04 K/uL Prothrombin Time 10.5 SECONDS Prothromb Time International Ratio 1.0 Sodium Level 138 mmol/L Potassium Level 3.5 mmol/L Chloride Level 104 mmol/L Carbon Dioxide Level 24 mmol/L Anion Gap 10.0 mmol/L 16.0 mmol/L Blood Urea Nitrogen 15 mg/dl Creatinine 1.26 mg/dl Est Creatinine Clear Calc Drug Dose 70.4 ml/min Estimated GFR () 70.9 Estimated GFR (Non- 61.2 BUN/Creatinine Ratio 12.1 Random Glucose 120 mg/dl Estimated Average Glucose 111 mg/dl Hemoglobin A1c 5.5 % Calcium Level 9.3 mg/dl Magnesium Level 1.6 mg/dl Total Bilirubin 1.6 mg/dl Direct Bilirubin 0.3 mg/dl Aspartate Amino Transf (AST/SGOT) 32 U/L Alanine Aminotransferase (ALT/SGPT) 64 U/L Alkaline Phosphatase 82 U/L Total Creatine Kinase 57 U/L Creatine Kinase MB < 0.5 ng/ml Creatine Kinase MB Ratio Troponin I < 0.015 ng/ml Total Protein 7.3 gm/dl Albumin 3.6 gm/dl Thyroid Stimulating Hormone (TSH) 1.070 uIu/ml Bedside Hemoglobin 15.6 g/dl Bedside Hematocrit 46 % Bedside Sodium 140 mEq/L Bedside Potassium 3.7 mEq/L Bedside Chloride 101 mEq/L Bedside Total CO2 28 mEq/l Bedside Blood Urea Nitrogen 18 mg/dl Bedside Creatinine 1.3 mg/dl Bedside Glucose (other) 120 mg/dl Bedside Ionized Calcium (Pola) 1.15 mmol/l Bedside Lactic Acid Venous 1.58 mmol/L Urine Color YELLOW Urine Appearance CLEAR Urine pH 5.0 Urine Specific [place] 1.018 Urine Protein NEG Urine Glucose (UA) NEG Urine Ketones NEG Urine Occult Blood 3+ Urine Nitrite NEG Urine Bilirubin NEG Urine Urobilinogen NEG Urine Leukocyte Esterase NEG Urine WBC (Auto) 1-5 /hpf Urine RBC (Auto) 5-10 /hpf Urine Hyaline Casts (Auto) 0 /lpf Urine Epithelial Cells (Auto) 0-5 /lpf Urine Bacteria (Auto) NEG Test 07/30/17 23:34 07/31/17 05:57 Lactic Acid Level 1.4 mmol/L White Blood Count 8.39 K/uL Red Blood Count 4.92 M/uL Hemoglobin 14.8 g/dL Hematocrit 43.2 % Mean Corpuscular Volume 87.8 fL Mean Corpuscular Hemoglobin 30.1 pg Mean Corpuscular Hemoglobin Concent 34.3 g/dl Platelet Count 111 K/uL Mean Platelet Volume 9.2 fL Neutrophils (%) (Auto) 80.5 % Lymphocytes (%) (Auto) 11.2 % Monocytes (%) (Auto) 7.3 % Eosinophils (%) (Auto) 0.4 % Basophils (%) (Auto) 0.2 % Neutrophils # (Auto) 6.76 K/uL Lymphocytes # (Auto) 0.94 K/uL Monocytes # (Auto) 0.61 K/uL Eosinophils # (Auto) 0.03 K/uL Basophils # (Auto) 0.02 K/uL RDW Standard Deviation 38.6 fL RDW Coefficient of Variation 12.1 % Immature Granulocyte % (Auto) 0.4 % Immature Granulocyte # (Auto) 0.03 K/uL Sodium Level 141 mmol/L Potassium Level 4.2 mmol/L Chloride Level 107 mmol/L Carbon Dioxide Level 28 mmol/L Anion Gap 6.0 mmol/L Blood Urea Nitrogen 13 mg/dl Creatinine 1.28 mg/dl Est Creatinine Clear Calc Drug Dose 69.3 ml/min Estimated GFR () 69.5 Estimated GFR (Non- 60.0 BUN/Creatinine Ratio 10.0 Random Glucose 100 mg/dl Calcium Level 8.2 mg/dl Magnesium Level 2.0 mg/dl Date/Time Source Procedure Growth Status 07/30/17 21:30 Blood Blood Culture Pending Received 07/30/17 21:15 Blood Blood Culture Pending Received 07/30/17 22:15 Urine , Clean Catch Urine Culture Pending Received Assessment & Plan Possible early Diverticulitis Meet SIRS criteria on admission with tachycardia, febrile GI bleeding Present with lowed abdominal pain CT abd showed diverticulosis of the proximal sigmoid colon. No bowel obstruction. Hgb stable Continue Ceftriaxone and Flagyl IV Pain resolved No further episode of GI bleed On clear liquid diet Plan to get colonoscopy on Thursday Continue monitor H/H Left renal calculus CT abd showed nonobstructing 7 mm calculus in the left renal pelvis and convincing evidence of obstruction. urology has been consulted Thrombocytopenia Plt 111 No signs of bleeding Monitor cbc Hypertension stable. Coronary artery disease status post stenting Stable DVT px on SCD CODE STATUS FULL CODE Current Inpatient Medications: Current Inpatient Medications Medications (Trade) Dose Ordered Sig/[place]les Route Start Time Stop Time Status Last Admin Dose Admin Ioversol (Optiray 320) 111 ml UD PRN IV 07/30/17 22:00 08/03/17 21:59 Acetaminophen (Tylenol Tab) 650 mg Q6H PRN PO 07/30/17 23:15 08/29/17 23:14 07/31/17 07:41 650 MG Metoprolol Tartrate (Lopressor Tab) 25 mg BID PO 07/31/17 08:00 08/30/17 08:59 07/31/17 07:37 25 MG Tramadol HCl (Ultram Tab) 25 mg Q6H PRN PO 07/31/17 00:00 08/30/17 00:00 Prochlorperazine Edisylate 5 mg/ Syringe 5 ml @ 5 mls/min Q6H PRN IV 07/31/17 00:00 08/30/17 00:00 Lorazepam (Ativan Inj) 0.5 mg Q4H PRN IV 07/31/17 00:00 08/30/17 00:00 Potassium Chloride/Sodium Chloride 1,000 ml @ 100 mls/hr Q10H ONCE IV 07/31/17 01:30 07/31/17 11:29 07/31/17 01:51 100 MLS/HR Ceftriaxone Sodium 1 gm/ Dextrose 50 ml @ 100 mls/hr Q24H IV 07/31/17 09:00 08/10/17 08:59 07/31/17 07:38 100 MLS/HR Metronidazole 500 mg/Prmx 100 ml @ 100 mls/hr Q8H IV 07/31/17 02:00 08/10/17 01:59 07/31/17 10:20 100 MLS/HR Ketorolac Tromethamine (Toradol Inj) 15 mg Q6H PRN IV. 07/31/17 00:00 08/05/17 00:00 Atorvastatin Calcium (Lipitor Tab) 80 mg QAM PO 07/31/17 08:00 08/30/17 08:59 07/31/17 07:37 80 MG Lorazepam 0.5 mg/ Syringe 1 ml @ 1 mls/min Q4H PRN IV 07/31/17 03:15 08/30/17 03:14 Polyethylene Glycol/ Electrolytes (Golytely Soln) 1 dose UD PO 08/02/17 18:00 09/01/17 17:59 UNV
--- NOTE | 2017-07-31 12:09 | Urology Consultation ---
History General Date of Service: Jul 31, 2017. Chief Complaint: fever, abdominal pain, microhematuria Primary Care Physician: Oli Lucero D.O. Pt seen a urologist before?: Yes (Dr. Stephens) If yes, why?: nephrolithiasis History of Present Illness 61 yo male with admitted with abdominal pain, fever, and hematochezia. consulted for microhematuria, abdominal pain, and renal findings on CT. CT notes a 7mm left renal stone in addition to mild dilation of the left collecting system. UA showing microhematuria. No evidence for infection. Blood and urine cultures pending. He was noted to be febrile with a temp of 38C last evening. Afebrile this morning. He is pending a colonoscopy on 08-03 for his hematochezia. Imaging Imaging: CT Laboratory Last 24 Hours Test 07/30/17 21:15 07/30/17 21:30 07/30/17 21:34 07/30/17 22:15 White Blood Count 11.52 K/uL Red Blood Count 5.53 M/uL Hemoglobin 17.1 g/dL Hematocrit 47.0 % Mean Corpuscular Volume 85.0 fL Mean Corpuscular Hemoglobin 30.9 pg Mean Corpuscular Hemoglobin Concent 36.4 g/dl Platelet Count 127 K/uL Mean Platelet Volume 9.2 fL Neutrophils (%) (Auto) 83.1 % Lymphocytes (%) (Auto) 6.7 % Monocytes (%) (Auto) 9.2 % Eosinophils (%) (Auto) 0.5 % Basophils (%) (Auto) 0.2 % Neutrophils # (Auto) 9.57 K/uL Lymphocytes # (Auto) 0.77 K/uL Monocytes # (Auto) 1.06 K/uL Eosinophils # (Auto) 0.06 K/uL Basophils # (Auto) 0.02 K/uL RDW Standard Deviation 36.7 fL RDW Coefficient of Variation 12.0 % Immature Granulocyte % (Auto) 0.3 % Immature Granulocyte # (Auto) 0.04 K/uL Prothrombin Time 10.5 SECONDS Prothromb Time International Ratio 1.0 Sodium Level 138 mmol/L Potassium Level 3.5 mmol/L Chloride Level 104 mmol/L Carbon Dioxide Level 24 mmol/L Anion Gap 10.0 mmol/L 16.0 mmol/L Blood Urea Nitrogen 15 mg/dl Creatinine 1.26 mg/dl Est Creatinine Clear Calc Drug Dose 70.4 ml/min Estimated GFR () 70.9 Estimated GFR (Non- 61.2 BUN/Creatinine Ratio 12.1 Random Glucose 120 mg/dl Estimated Average Glucose 111 mg/dl Hemoglobin A1c 5.5 % Calcium Level 9.3 mg/dl Magnesium Level 1.6 mg/dl Total Bilirubin 1.6 mg/dl Direct Bilirubin 0.3 mg/dl Aspartate Amino Transf (AST/SGOT) 32 U/L Alanine Aminotransferase (ALT/SGPT) 64 U/L Alkaline Phosphatase 82 U/L Total Creatine Kinase 57 U/L Creatine Kinase MB < 0.5 ng/ml Creatine Kinase MB Ratio Troponin I < 0.015 ng/ml Total Protein 7.3 gm/dl Albumin 3.6 gm/dl Thyroid Stimulating Hormone (TSH) 1.070 uIu/ml Bedside Hemoglobin 15.6 g/dl Bedside Hematocrit 46 % Bedside Sodium 140 mEq/L Bedside Potassium 3.7 mEq/L Bedside Chloride 101 mEq/L Bedside Total CO2 28 mEq/l Bedside Blood Urea Nitrogen 18 mg/dl Bedside Creatinine 1.3 mg/dl Bedside Glucose (other) 120 mg/dl Bedside Ionized Calcium (Pola) 1.15 mmol/l Bedside Lactic Acid Venous 1.58 mmol/L Urine Color YELLOW Urine Appearance CLEAR Urine pH 5.0 Urine Specific [place] 1.018 Urine Protein NEG Urine Glucose (UA) NEG Urine Ketones NEG Urine Occult Blood 3+ Urine Nitrite NEG Urine Bilirubin NEG Urine Urobilinogen NEG Urine Leukocyte Esterase NEG Urine WBC (Auto) 1-5 /hpf Urine RBC (Auto) 5-10 /hpf Urine Hyaline Casts (Auto) 0 /lpf Urine Epithelial Cells (Auto) 0-5 /lpf Urine Bacteria (Auto) NEG Test 07/30/17 23:34 07/31/17 05:57 Lactic Acid Level 1.4 mmol/L White Blood Count 8.39 K/uL Red Blood Count 4.92 M/uL Hemoglobin 14.8 g/dL Hematocrit 43.2 % Mean Corpuscular Volume 87.8 fL Mean Corpuscular Hemoglobin 30.1 pg Mean Corpuscular Hemoglobin Concent 34.3 g/dl Platelet Count 111 K/uL Mean Platelet Volume 9.2 fL Neutrophils (%) (Auto) 80.5 % Lymphocytes (%) (Auto) 11.2 % Monocytes (%) (Auto) 7.3 % Eosinophils (%) (Auto) 0.4 % Basophils (%) (Auto) 0.2 % Neutrophils # (Auto) 6.76 K/uL Lymphocytes # (Auto) 0.94 K/uL Monocytes # (Auto) 0.61 K/uL Eosinophils # (Auto) 0.03 K/uL Basophils # (Auto) 0.02 K/uL RDW Standard Deviation 38.6 fL RDW Coefficient of Variation 12.1 % Immature Granulocyte % (Auto) 0.4 % Immature Granulocyte # (Auto) 0.03 K/uL Sodium Level 141 mmol/L Potassium Level 4.2 mmol/L Chloride Level 107 mmol/L Carbon Dioxide Level 28 mmol/L Anion Gap 6.0 mmol/L Blood Urea Nitrogen 13 mg/dl Creatinine 1.28 mg/dl Est Creatinine Clear Calc Drug Dose 69.3 ml/min Estimated GFR () 69.5 Estimated GFR (Non- 60.0 BUN/Creatinine Ratio 10.0 Random Glucose 100 mg/dl Calcium Level 8.2 mg/dl Magnesium Level 2.0 mg/dl Problem List Medical Problems: (1) Acute kidney injury Status: Acute (2) Diarrhea Status: Acute (3) GI bleed Status: Acute (4) Hydronephrosis Status: Acute (5) Left sided chest pain Status: Acute (6) Renal colic on left side Status: Acute (7) Renal stone Status: Acute Past History coronary artery disease, diverticulitis, diverticulosis, GI bleed, high cholesterol, hypertension, kidney stones Past Surgical History: cholecystectomy, colonoscopy, ureteral stent Family History heart disease Social History Hx Tobacco Use In Past Year?: No Smoking: non-smoker Alcohol: socially Marital status: Housing status: lives with family Occupation status: retired Immunizations History of Influenza Vaccine: N/A Influenza Vaccine Date: Mar 01, 2009 History of Tetanus Vaccine?: Yes Tetanus Immunization Date: Apr 01, 2006 History of Pneumococcal: No History of Hepatitis B Vaccine: No History of MDRO No Allergies Coded Allergies: Oxycodone (Verified Allergy, Unknown, PERCOCET-Rash, 07/30/17) CAN USE VICODIN Medications Home Medications: Home Meds and Scripts Medications Dose Route/Sig Max Daily Dose Days Date Category Aspirin Ec (Aspirin) 81 Mg Tab 81 Mg PO DAILY 07/30/17 Reported Nitrostat (Nitroglycerin) 0.4 Mg/1 Tab Subl 0.4 Mg UT UD PRN 15 11/16/16 Rx Vitamin B-12 1000 Mcg (Cyanocobalamin) 1,000 Mcg Tab 1,000 Mcg PO DAILY 11/15/16 Reported Vitamin D3 (Cholecalciferol) 1,000 Unit Tab 2,000 Units PO BID 11/15/16 Reported Lopressor (Metoprolol Tartrate) 25 Mg Tab 25 Mg PO BID 12/05/14 Reported [place]-3 (Fish Oil) 1 Ea Cap 1 Cap PO BID 12/05/14 Reported Lipitor (Atorvastatin Calcium) 80 Mg Tab 80 Mg PO QAM 12/05/14 Reported Inpatient Medications: Current Inpatient Medications Medications (Trade) Dose Ordered Sig/Robles Route Start Time Stop Time Status Last Admin Dose Admin Ioversol (Optiray 320) 111 ml UD PRN IV 07/30/17 22:00 08/03/17 21:59 Acetaminophen (Tylenol Tab) 650 mg Q6H PRN PO 07/30/17 23:15 08/29/17 23:14 07/31/17 07:41 650 MG Metoprolol Tartrate (Lopressor Tab) 25 mg BID PO 07/31/17 08:00 08/30/17 08:59 07/31/17 07:37 25 MG Tramadol HCl (Ultram Tab) 25 mg Q6H PRN PO 07/31/17 00:00 08/30/17 00:00 Prochlorperazine Edisylate 5 mg/ Syringe 5 ml @ 5 mls/min Q6H PRN IV 07/31/17 00:00 08/30/17 00:00 Lorazepam (Ativan Inj) 0.5 mg Q4H PRN IV 07/31/17 00:00 08/30/17 00:00 Ceftriaxone Sodium 1 gm/ Dextrose 50 ml @ 100 mls/hr Q24H IV 07/31/17 09:00 08/10/17 08:59 07/31/17 07:38 100 MLS/HR Metronidazole 500 mg/Prmx 100 ml @ 100 mls/hr Q8H IV 07/31/17 02:00 08/10/17 01:59 07/31/17 10:20 100 MLS/HR Ketorolac Tromethamine (Toradol Inj) 15 mg Q6H PRN IV. 07/31/17 00:00 08/05/17 00:00 Atorvastatin Calcium (Lipitor Tab) 80 mg QAM PO 07/31/17 08:00 08/30/17 08:59 07/31/17 07:37 80 MG Lorazepam 0.5 mg/ Syringe 1 ml @ 1 mls/min Q4H PRN IV 07/31/17 03:15 08/30/17 03:14 Polyethylene Glycol/ Electrolytes (Golytely Soln) 1 dose UD PO 08/02/17 18:00 09/01/17 17:59 UNV Review of Systems Review of Systems Constitutional: No fever, No chills Eyes: No double vision Neurological: No dizzy Endocrine: No excessive thirst Gastrointestinal: + abdominal pain (LLQ), No nausea, No vomiting Cardiovascular: No chest pain Respiratory: No shortness of breath Skin: No rash Musculoskeletal: No back pain Male : No painful urination, No blood in urine Physical Exam Vital Signs: Vital Signs Past 12 Hours Date Time Temp Pulse Resp B/P (MAP) Pulse Ox O2 Delivery O2 Flow Rate FiO2 07/31/17 08:28 37.3 83 16 135/84 (101) 93 07/31/17 07:45 Room Air 07/31/17 00:25 37.2 108 18 113/79 92 Room Air 07/31/17 00:15 105 18 127/76 92 Physical Exam: General Appearance: no apparent distress Eyes: bilateral eyes normal inspection ENT: hearing grossly normal Neck: no JVD Respiratory/Chest: no respiratory distress, no accessory muscle use Cardiovascular: no JVD Extremities: normal inspection Neurologic/Psychiatric: alert, normal mood/affect, oriented x 3 Skin: normal color Assessment & Plan Assessment & Plan A/P: 7mm left renal stone, microhematuria AFVSS. Reviewed pt's CT with Dr. Montes this morning. No evidence for obstruction secondary to stone on CT. Suspect his fever was r/t GI issues. Cultures pending. Will order a urine cytology for hematuria. May consider outpatient cysto for further evaluation, although he had a cystoscopy and URS last year. Will need management of left renal stone as an outpatient. Likely with ESWL. Will check a KUB while inpatient for visibility. No surgical intervention planned at this time. Will continue to observe pt. Thanks for the consult.
--- NOTE | 2017-07-31 13:27 | DIAGNOSTIC IMAGING REPORT ---
KUB CLINICAL HISTORY: left renal stone COMPARISON STUDY: 09/08/2016 , CT scan dated 07/30/2017 FINDINGS: There is no pathologic bowel dilatation. The left-sided nephroureteral stent has been removed. There is a faintly opaque 1 cm opacity at the level of the left renal pelvis, suspicious for a calculus. IMPRESSION: 1. No evidence of pathologic bowel dilatation 2. Suspected 1 cm calculus at the level the left renal pelvis Electronically signed by: Neil Fountain M.D. 07/31/2017 1:25 PM Dictated Date/Time: 07/31/2017 1:24 PM
[2017-07-31 15:21] VITALS: BP 131/80; PULSE 78; TEMP 38.1; O2SAT 92
[2017-07-31] MEDS ORDERED: NURSING VERBAL MED ORDER ONE (19:30)
[2017-08-01 00:15] VITALS: BP 129/79; PULSE 71; TEMP 37.3; O2SAT 91
[2017-08-01 06:22] LABS: HEMATOCRIT 41.7 % (42-52); HEMOGLOBIN 14.8 g/dL (14.0-18.0); MEAN CELL VOLUME 86.5 fL (80-100); MEAN CORPUSCULAR HEMOGLOBIN 30.7 pg (25-34); MEAN CORPUSCULAR HGB CONC 35.5 g/dl (32-36); WHITE BLOOD COUNT 3.51 K/uL (4.8-10.8)
[2017-08-01] MEDS: METRONIDAZOLE / NSS 500 MG in PREMIXED NSS 100 ML IV SCH ×3 (06:34→21:46)
[2017-08-01 06:46] LABS: BASO % 0.6 %; BASO ABS # 0.02 K/uL (0-0.2); EOS % 2.6 %; EOS ABS # 0.09 K/uL (0-0.5); IG# 0.02 K/uL (0.00-0.02); LYMPH % 30.2 %; LYMPH ABS # 1.06 K/uL (1.2-3.4); MEAN PLATELET VOLUME 9.2 fL (7.4-10.4); MONO % 18.8 %; MONO ABS # 0.66 K/uL (0.11-0.59); NEUT % 47.2 %; NEUT ABS # 1.66 K/uL (1.4-6.5); PLATELET COUNT 94 K/uL (130-400)
[2017-08-01 08:13] VITALS: BP 151/89; PULSE 72; TEMP 36.7; O2SAT 92
[2017-08-01] MEDS: CEFTRIAXONE SOD INJ 1 GM in DEXTROSE 5% ADD-VANTAGE 50ML 50 ML IV SCH (08:20)
[2017-08-01] MEDS: ATORVASTATIN 40 MG TAB PO SCH (08:23)
[2017-08-01] MEDS: METOPROLOL TARTRATE 25 MG TAB PO SCH ×2 (08:23→19:50)
--- NOTE | 2017-08-01 10:13 | Progress Note ---
Progress Note Date of Service Aug 01, 2017. Progress Note Patient is currently afebrile vital signs are stable. He is having no flank pain. On exam his abdomen is soft nontender There is no flank pain He denies any voiding problems I reviewed his CT scan he does have a stone in the left renal pelvis but there is no hydronephrosis urinalysis did not show any sign of infection he does have a urine culture pending He is scheduled for colonoscopy on Thursday Assessment left renal stone At this point the stone is not causing him any problems he will need to have follow-up as an outpatient to schedule extracorporal shockwave lithotripsy
[2017-08-01 15:14] VITALS: BP 143/88; PULSE 66; TEMP 37.2; O2SAT 94
--- NOTE | 2017-08-01 17:28 | Progress Note ---
Medicine Progress Note Date & Time of Visit: Aug 01, 2017 at 17:22. Subjective Pt was seen and examined Sitting in bed with no distress Pt said that he feels fine He does not have any abdominal pain Denies any fever, palpitation, dizziness and SOB Objective Last 8 Hrs Date Time Temp Pulse Resp B/P (MAP) Pulse Ox O2 Delivery O2 Flow Rate FiO2 08/01/17 15:30 Room Air 08/01/17 15:14 37.2 66 20 143/88 (106) 94 Room Air Physical Exam: General- no acute distress Head- atraumatic Eyes- PERRL, EOMI ENT- oropharynx clear Neck- supple, no JVD Lungs- clear to auscultation Heart- regular rhythm Abdomen- normal bowel sounds, nontender, + BS Extremities- no calf tenderness Neuro- alert, oriented x 3; PERRL, EOMI Skin- warm & dry Laboratory Results: Last 24 Hours Test 08/01/17 06:01 White Blood Count 3.51 K/uL Red Blood Count 4.82 M/uL Hemoglobin 14.8 g/dL Hematocrit 41.7 % Mean Corpuscular Volume 86.5 fL Mean Corpuscular Hemoglobin 30.7 pg Mean Corpuscular Hemoglobin Concent 35.5 g/dl Platelet Count 94 K/uL Mean Platelet Volume 9.2 fL Neutrophils (%) (Auto) 47.2 % Lymphocytes (%) (Auto) 30.2 % Monocytes (%) (Auto) 18.8 % Eosinophils (%) (Auto) 2.6 % Basophils (%) (Auto) 0.6 % Neutrophils # (Auto) 1.66 K/uL Lymphocytes # (Auto) 1.06 K/uL Monocytes # (Auto) 0.66 K/uL Eosinophils # (Auto) 0.09 K/uL Basophils # (Auto) 0.02 K/uL RDW Standard Deviation 38.0 fL RDW Coefficient of Variation 12.0 % Immature Granulocyte % (Auto) 0.6 % Immature Granulocyte # (Auto) 0.02 K/uL Platelet Estimate DECREASED Assessment & Plan Possible early Diverticulitis Meet SIRS criteria on admission with tachycardia, febrile GI bleeding Present with lowed abdominal pain CT abd showed diverticulosis of the proximal sigmoid colon. No bowel obstruction. Hgb stable Continue Ceftriaxone and Flagyl IV Pain resolved No further episode of GI bleed On clear liquid diet Plan to get colonoscopy on Thursday Will start bowel prep tomorrow Continue monitor H/H UTI has been afebrile for about 24 hrs Urine cx grew gram negative bacilli Continue IV rocephin abx Follow up sensitivity Left renal calculus CT abd showed nonobstructing 7 mm calculus in the left renal pelvis and convincing evidence of obstruction. urology has been consulted Will need outpatient appt to schedule extracorporal shockwave lithotripsy Thrombocytopenia Plt 94 No signs of bleeding Monitor cbc Hypertension stable. Coronary artery disease status post stenting Stable DVT px on SCD CODE STATUS FULL CODE Current Inpatient Medications: Current Inpatient Medications Medications (Trade) Dose Ordered Sig/Robles Route Start Time Stop Time Status Last Admin Dose Admin Ioversol (Optiray 320) 111 ml UD PRN IV 07/30/17 22:00 08/03/17 21:59 Acetaminophen (Tylenol Tab) 650 mg Q6H PRN PO 07/30/17 23:15 08/29/17 23:14 07/31/17 21:58 650 MG Metoprolol Tartrate (Lopressor Tab) 25 mg BID PO 07/31/17 08:00 08/30/17 08:59 08/01/17 08:23 25 MG Tramadol HCl (Ultram Tab) 25 mg Q6H PRN PO 07/31/17 00:00 08/30/17 00:00 Prochlorperazine Edisylate 5 mg/ Syringe 5 ml @ 5 mls/min Q6H PRN IV 07/31/17 00:00 08/30/17 00:00 Lorazepam (Ativan Inj) 0.5 mg Q4H PRN IV 07/31/17 00:00 08/30/17 00:00 Ceftriaxone Sodium 1 gm/ Dextrose 50 ml @ 100 mls/hr Q24H IV 07/31/17 09:00 08/10/17 08:59 08/01/17 08:20 100 MLS/HR Ketorolac Tromethamine (Toradol Inj) 15 mg Q6H PRN IV. 07/31/17 00:00 08/05/17 00:00 Atorvastatin Calcium (Lipitor Tab) 80 mg QAM PO 07/31/17 08:00 08/30/17 08:59 08/01/17 08:23 80 MG Lorazepam 0.5 mg/ Syringe 1 ml @ 1 mls/min Q4H PRN IV 07/31/17 03:15 08/30/17 03:14 Polyethylene Glycol/ Electrolytes (Golytely Soln) 16 dose TODAY@1800 PO 08/02/17 18:00 08/03/17 12:00 Metronidazole 500 mg/Prmx 100 ml @ 100 mls/hr Q8H IV 07/31/17 22:00 08/10/17 21:59 08/01/17 13:16 100 MLS/HR
[2017-08-01] MEDS: KETOROLAC TROMETHAMINE 15 MG/ML VIAL IV. PRN (19:50)
[2017-08-02 00:09] VITALS: BP 144/88; PULSE 62; TEMP 36.5; O2SAT 92
[2017-08-02] MEDS: METRONIDAZOLE / NSS 500 MG in PREMIXED NSS 100 ML IV SCH ×3 (05:56→21:55)
[2017-08-02 06:21] LABS: BASO % 0.3 %; BASO ABS # 0.01 K/uL (0-0.2); EOS % 3.9 %; EOS ABS # 0.14 K/uL (0-0.5); HEMATOCRIT 40.6 % (42-52); HEMOGLOBIN 14.5 g/dL (14.0-18.0); IG# 0.01 K/uL (0.00-0.02); LYMPH % 34.3 %; LYMPH ABS # 1.23 K/uL (1.2-3.4); MEAN CELL VOLUME 85.5 fL (80-100); MEAN CORPUSCULAR HEMOGLOBIN 30.5 pg (25-34); MEAN CORPUSCULAR HGB CONC 35.7 g/dl (32-36); MEAN PLATELET VOLUME 8.9 fL (7.4-10.4); MONO ABS # 0.79 K/uL (0.11-0.59); NEUT % 39.2 %; NEUT ABS # 1.41 K/uL (1.4-6.5); PLATELET COUNT 106 K/uL (130-400); RED CELL DISTRIBUTION WIDTH CV 11.9 % (11.5-14.5); RED CELL DISTRIBUTION WIDTH SD 36.8 fL (36.4-46.3); WHITE BLOOD COUNT 3.59 K/uL (4.8-10.8)
[2017-08-02 07:51] VITALS: BP_SYST 145; BP_SYST 156; BP_DIAS 89; BP_DIAS 96; PULSE 64; TEMP 36.7; O2SAT 91
[2017-08-02] MEDS: ATORVASTATIN 40 MG TAB PO SCH (08:05)
[2017-08-02] MEDS: CEFTRIAXONE SOD INJ 1 GM in DEXTROSE 5% ADD-VANTAGE 50ML 50 ML IV SCH (08:05)
[2017-08-02] MEDS: METOPROLOL TARTRATE 25 MG TAB PO SCH ×2 (08:05→19:31)
[2017-08-02] MEDS: KETOROLAC TROMETHAMINE 15 MG/ML VIAL IV. PRN (08:10)
[2017-08-02 12:28] VITALS: Ht 175.3 cm; Wt 96.0 kg
--- NOTE | 2017-08-02 13:01 | PROGRESS NOTE ---
DATE: 08/02/2017 AGE: 61. SEX: Male. RACE: . SUBJECTIVE: I had the pleasure of seeing Reji Stack today at his bedside. He denied any complaints at present including abdominal pain or hematochezia. He states he is tolerating p.o. intake and denies any further complaints. PHYSICAL EXAMINATION: VITAL SIGNS: Temp 36.7, pulse 64, respirations 20, blood pressure 156/96, pulse ox 91% on room air. GENERAL: Awake, cooperative, no acute distress. ABDOMEN: Soft, nontender, nondistended. Positive bowel sounds. LABORATORY STUDIES: From today include a hemoglobin of 14.5, hematocrit 40.6. IMPRESSION: This is a 61-year-old male who presented with a left lower quadrant abdominal pain and loose bloody stools. PLAN: I would recommend continuing the patient on clear liquid diet today, be kept n.p.o. after midnight. He will be given GoLYTELY bowel prep today and will undergo colonoscopy tomorrow. Once again, thanks for allowing me to participate in the care of this patient. If you have any further questions, please do not hesitate in contacting me.
--- NOTE | 2017-08-02 13:10 | Progress Note ---
Progress Note Date of Service Aug 02, 2017. Progress Note Patient's afebrile vital signs are stable Denies any flank pain Getting a colonoscopy tomorrow Despite having a urinalysis showing no white cells and no nitrites culture is growing out a Citrobacter Would treat this pending the sensitivities. For now the stone is not causing him any difficulties will see him as an outpatient to schedule extrapleural shockwave lithotripsy
[2017-08-02 15:18] VITALS: BP 147/85; PULSE 54; TEMP 36.7; O2SAT 96
--- NOTE | 2017-08-02 17:28 | Progress Note ---
Medicine Progress Note Date & Time of Visit: Aug 02, 2017 at 17:25. Subjective Pt was seen and examined Sitting in bed with no distress watching TV Denies any complaint Objective Last 8 Hrs Date Time Temp Pulse Resp B/P (MAP) Pulse Ox O2 Delivery O2 Flow Rate FiO2 08/02/17 16:18 Room Air 08/02/17 15:18 36.7 54 18 147/85 (105) 96 Physical Exam: General- no acute distress Head- atraumatic Eyes- PERRL, EOMI ENT- oropharynx clear Neck- supple, no JVD Lungs- clear to auscultation Heart- regular rhythm Abdomen- normal bowel sounds, nontender, + BS Extremities- no calf tenderness Neuro- alert, oriented x 3; PERRL, EOMI Skin- warm & dry Laboratory Results: Last 24 Hours Test 08/02/17 05:59 White Blood Count 3.59 K/uL Red Blood Count 4.75 M/uL Hemoglobin 14.5 g/dL Hematocrit 40.6 % Mean Corpuscular Volume 85.5 fL Mean Corpuscular Hemoglobin 30.5 pg Mean Corpuscular Hemoglobin Concent 35.7 g/dl Platelet Count 106 K/uL Mean Platelet Volume 8.9 fL Neutrophils (%) (Auto) 39.2 % Lymphocytes (%) (Auto) 34.3 % Monocytes (%) (Auto) 22.0 % Eosinophils (%) (Auto) 3.9 % Basophils (%) (Auto) 0.3 % Neutrophils # (Auto) 1.41 K/uL Lymphocytes # (Auto) 1.23 K/uL Monocytes # (Auto) 0.79 K/uL Eosinophils # (Auto) 0.14 K/uL Basophils # (Auto) 0.01 K/uL RDW Standard Deviation 36.8 fL RDW Coefficient of Variation 11.9 % Immature Granulocyte % (Auto) 0.3 % Immature Granulocyte # (Auto) 0.01 K/uL Assessment & Plan Possible early Diverticulitis Meet SIRS criteria on admission with tachycardia, febrile GI bleeding Present with lowed abdominal pain CT abd showed diverticulosis of the proximal sigmoid colon. No bowel obstruction. Hgb stable Continue Ceftriaxone and Flagyl IV Pain resolved No further episode of GI bleed On clear liquid diet Plan to get colonoscopy tomorrow Will start bowel prep today NPO after minight Continue monitor H/H UTI has been afebrile for about 24 hrs Urine cx grew gram negative bacilli - Citrobacter Koseri On IV rocephin abx Will change to cipro po denies any urinary symptoms Left renal calculus CT abd showed nonobstructing 7 mm calculus in the left renal pelvis and convincing evidence of obstruction. urology has been consulted Will need outpatient appt to schedule extracorporal shockwave lithotripsy Thrombocytopenia Plt 106 No signs of bleeding Monitor cbc Hypertension stable. Coronary artery disease status post stenting Stable DVT px on SCD CODE STATUS FULL CODE Current Inpatient Medications: Current Inpatient Medications Medications (Trade) Dose Ordered Sig/Robles Route Start Time Stop Time Status Last Admin Dose Admin Ioversol (Optiray 320) 111 ml UD PRN IV 07/30/17 22:00 08/03/17 21:59 Acetaminophen (Tylenol Tab) 650 mg Q6H PRN PO 07/30/17 23:15 08/29/17 23:14 07/31/17 21:58 650 MG Metoprolol Tartrate (Lopressor Tab) 25 mg BID PO 07/31/17 08:00 08/30/17 08:59 08/02/17 08:05 25 MG Tramadol HCl (Ultram Tab) 25 mg Q6H PRN PO 07/31/17 00:00 08/30/17 00:00 Prochlorperazine Edisylate 5 mg/ Syringe 5 ml @ 5 mls/min Q6H PRN IV 07/31/17 00:00 08/30/17 00:00 Lorazepam (Ativan Inj) 0.5 mg Q4H PRN IV 07/31/17 00:00 08/30/17 00:00 Ceftriaxone Sodium 1 gm/ Dextrose 50 ml @ 100 mls/hr Q24H IV 07/31/17 09:00 08/10/17 08:59 08/02/17 08:05 100 MLS/HR Ketorolac Tromethamine (Toradol Inj) 15 mg Q6H PRN IV. 07/31/17 00:00 08/05/17 00:00 08/02/17 08:10 15 MG Atorvastatin Calcium (Lipitor Tab) 80 mg QAM PO 07/31/17 08:00 08/30/17 08:59 08/02/17 08:05 80 MG Lorazepam 0.5 mg/ Syringe 1 ml @ 1 mls/min Q4H PRN IV 07/31/17 03:15 08/30/17 03:14 Polyethylene Glycol/ Electrolytes (Golytely Soln) 16 dose TODAY@1800 PO 08/02/17 18:00 08/03/17 12:00 Metronidazole 500 mg/Prmx 100 ml @ 100 mls/hr Q8H IV 07/31/17 22:00 08/10/17 21:59 08/02/17 14:06 100 MLS/HR
[2017-08-02] MEDS ORDERED: LAVAGE SOLUTION 4000ML PO SCH (18:00)
[2017-08-03 01:23] VITALS: BP 147/91; PULSE 53; TEMP 36.4; O2SAT 98
[2017-08-03] MEDS: METRONIDAZOLE / NSS 500 MG in PREMIXED NSS 100 ML IV SCH ×2 (06:05→13:28)
[2017-08-03 07:04] LABS: BASO % 0.4 %; BASO ABS # 0.02 K/uL (0-0.2); EOS % 2.3 %; EOS ABS # 0.11 K/uL (0-0.5); HEMATOCRIT 40.4 % (42-52); HEMOGLOBIN 14.6 g/dL (14.0-18.0); IG# 0.01 K/uL (0.00-0.02); MEAN CELL VOLUME 84.5 fL (80-100); MEAN CORPUSCULAR HEMOGLOBIN 30.5 pg (25-34); MEAN CORPUSCULAR HGB CONC 36.1 g/dl (32-36); MEAN PLATELET VOLUME 9.4 fL (7.4-10.4); MONO % 14.1 %; MONO ABS # 0.66 K/uL (0.11-0.59); NEUT ABS # 2.39 K/uL (1.4-6.5); PLATELET COUNT 121 K/uL (130-400); RED CELL DISTRIBUTION WIDTH CV 11.9 % (11.5-14.5); RED CELL DISTRIBUTION WIDTH SD 36.5 fL (36.4-46.3); WHITE BLOOD COUNT 4.69 K/uL (4.8-10.8)
[2017-08-03 08:00] VITALS: BP 147/93; PULSE 57; TEMP 36.6; O2SAT 95
--- NOTE | 2017-08-03 08:51 | Clinical Documentation Query ---
CLINICAL DOCUMENTATION QUERY 61 yo male admitted with GI bleed and diverticulitis. WBCs were 11.5 on admission and the patient was febrile (38.5) and tachycardiac (108). Documentation states the patient meets SIRS criteria. In your clinical opinion is this patient being managed for: ( ) Sepsis, resolved ( ) Not Agree ( ) Other explanation of clinical findings (Please Explain) ( ) Unable to determine (Please Define) ( ) Need to Discuss The medical record reflects the following clinical findings, treatment, and risk factors. Clinical Indicators: As above Treatment: Zosyn IV, Ceftriaxone IV, hydration, Toradol IV Risk Factors: UTI, renal calculus, diverticulitis Please clarify and document your clinical opinion in the progress notes and discharge summary. Terms such as "probable", "suspected", "likely", "questionable", "possible", or "still to be ruled out" are acceptable. IF IN AGREEMENT, YOU MUST DOCUMENT ABOVE DIAGNOSTIC STATEMENT IN DAILY PROGRESS NOTES AND DISCHARGE SUMMARY. This document is not part of the patient's record. Thank You, Jannie Haley RN [phone]
[2017-08-03] MEDS: CEFTRIAXONE SOD INJ 1 GM in DEXTROSE 5% ADD-VANTAGE 50ML 50 ML IV SCH (09:39)
--- NOTE | 2017-08-03 10:59 | Progress Note ---
Subjective Date of Service: Aug 03, 2017. Subjective Pt evaluation today including: conversation w/ patient, chart review, lab review Voiding: no voiding problems Pt denies pain, dysuria, hematuria, or hematochezia today. Pending colonoscopy today for hematochezia. UC&S growing citrobacter. Problem List Medical Problems: (1) Acute kidney injury Status: Acute (2) Diarrhea Status: Acute (3) GI bleed Status: Acute (4) Hydronephrosis Status: Acute (5) Left sided chest pain Status: Acute (6) Renal colic on left side Status: Acute (7) Renal stone Status: Acute Review of Systems Constitutional: No fever, No chills Respiratory: No shortness of breath Cardiac: No chest pain Abdomen: No pain, No nausea, No vomiting Male : No dysuria, No hematuria Heme: No abnormal bleeding/bruising Objective Vital Signs Date Time Temp Pulse Resp B/P (MAP) Pulse Ox O2 Delivery O2 Flow Rate FiO2 08/03/17 08:00 36.6 57 18 147/93 (111) 95 Room Air 08/03/17 01:23 36.4 53 20 147/91 (109) 98 Room Air 08/03/17 00:30 Room Air 08/02/17 19:45 Room Air 08/02/17 16:18 Room Air 08/02/17 15:18 36.7 54 18 147/85 (105) 96 Physical Exam General Appearance: no apparent distress Eyes: normal inspection ENT: hearing grossly normal Neck: no JVD Respiratory/Chest: no respiratory distress, no accessory muscle use Cardiovascular: no JVD Extremities: normal inspection Neurologic/Psychiatric: alert, normal mood/affect, oriented x 3 Skin: normal color Laboratory Results Last 24 Hours Test 08/03/17 06:23 White Blood Count 4.69 K/uL Red Blood Count 4.78 M/uL Hemoglobin 14.6 g/dL Hematocrit 40.4 % Mean Corpuscular Volume 84.5 fL Mean Corpuscular Hemoglobin 30.5 pg Mean Corpuscular Hemoglobin Concent 36.1 g/dl Platelet Count 121 K/uL Mean Platelet Volume 9.4 fL Neutrophils (%) (Auto) 51.0 % Lymphocytes (%) (Auto) 32.0 % Monocytes (%) (Auto) 14.1 % Eosinophils (%) (Auto) 2.3 % Basophils (%) (Auto) 0.4 % Neutrophils # (Auto) 2.39 K/uL Lymphocytes # (Auto) 1.50 K/uL Monocytes # (Auto) 0.66 K/uL Eosinophils # (Auto) 0.11 K/uL Basophils # (Auto) 0.02 K/uL RDW Standard Deviation 36.5 fL RDW Coefficient of Variation 11.9 % Immature Granulocyte % (Auto) 0.2 % Immature Granulocyte # (Auto) 0.01 K/uL Assessment and Plan 1. UTI Recommend transition to oral abx prior to d/c home. Recommend 7-10 days of therapy. 2. 7mm left renal stone Stone visible on KUB. Will plan for outpatient ESWL for stone management in the next 1-2 months. Will arrange for outpatient f/u with Dr. Stephens. Discussed stone prevention with adequate hydration, lemonade therapy, and a low sodium diet. No further management at this time. Recall PRN issues. Thanks for allowing us to participate in this pt's care.
[2017-08-03] MEDS: METOPROLOL TARTRATE 25 MG TAB PO SCH (13:26)
[2017-08-03] MEDS ORDERED: PROPOFOL IV EMULSION 10 MG/ML 20 ML VIAL IV ONE (15:27)
[2017-08-03] MEDS ORDERED: LIDOCAINE HCL 2% 2 ML VIAL (20MG/ML) ONE (15:27)
--- NOTE | 2017-08-03 15:33 | Gastroenterology Progress Note ---
Progress Note Date of Service: Aug 03, 2017 Subjective Pt evaluation today including: conversation w/ patient, physical exam, chart review, lab review No abdominal pain at this time. No further hematochezia. Tolerated clear liquid diet yesterday. Medications Current Inpatient Medications Medications (Trade) Dose Ordered Sig/Robles Route Start Time Stop Time Status Last Admin Dose Admin Ioversol (Optiray 320) 111 ml UD PRN IV 07/30/17 22:00 08/03/17 21:59 Acetaminophen (Tylenol Tab) 650 mg Q6H PRN PO 07/30/17 23:15 08/29/17 23:14 07/31/17 21:58 650 MG Metoprolol Tartrate (Lopressor Tab) 25 mg BID PO 07/31/17 08:00 08/30/17 08:59 08/02/17 19:31 25 MG Tramadol HCl (Ultram Tab) 25 mg Q6H PRN PO 07/31/17 00:00 08/30/17 00:00 Prochlorperazine Edisylate 5 mg/ Syringe 5 ml @ 5 mls/min Q6H PRN IV 07/31/17 00:00 08/30/17 00:00 Lorazepam (Ativan Inj) 0.5 mg Q4H PRN IV 07/31/17 00:00 08/30/17 00:00 Ceftriaxone Sodium 1 gm/ Dextrose 50 ml @ 100 mls/hr Q24H IV 07/31/17 09:00 08/10/17 08:59 08/03/17 09:39 100 MLS/HR Ketorolac Tromethamine (Toradol Inj) 15 mg Q6H PRN IV. 07/31/17 00:00 08/05/17 00:00 08/02/17 08:10 15 MG Atorvastatin Calcium (Lipitor Tab) 80 mg QAM PO 07/31/17 08:00 08/30/17 08:59 08/02/17 08:05 80 MG Lorazepam 0.5 mg/ Syringe 1 ml @ 1 mls/min Q4H PRN IV 07/31/17 03:15 08/30/17 03:14 Metronidazole 500 mg/Prmx 100 ml @ 100 mls/hr Q8H IV 07/31/17 22:00 08/10/17 21:59 08/03/17 13:28 100 MLS/HR Objective Vital Signs Date Time Temp Pulse Resp B/P (MAP) Pulse Ox O2 Delivery O2 Flow Rate FiO2 08/03/17 15:09 37.3 68 16 149/93 (111) 95 Room Air 08/03/17 11:21 Room Air 08/03/17 08:00 36.6 57 18 147/93 (111) 95 Room Air 08/03/17 01:23 36.4 53 20 147/91 (109) 98 Room Air 08/03/17 00:30 Room Air 08/02/17 19:45 Room Air 08/02/17 16:18 Room Air Physical Exam General Appearance: no apparent distress Eyes: normal inspection ENT: hearing grossly normal Neck: supple Abdomen: non tender, soft Laboratory Results Last 24 Hours Test 08/03/17 06:23 White Blood Count 4.69 K/uL Red Blood Count 4.78 M/uL Hemoglobin 14.6 g/dL Hematocrit 40.4 % Mean Corpuscular Volume 84.5 fL Mean Corpuscular Hemoglobin 30.5 pg Mean Corpuscular Hemoglobin Concent 36.1 g/dl Platelet Count 121 K/uL Mean Platelet Volume 9.4 fL Neutrophils (%) (Auto) 51.0 % Lymphocytes (%) (Auto) 32.0 % Monocytes (%) (Auto) 14.1 % Eosinophils (%) (Auto) 2.3 % Basophils (%) (Auto) 0.4 % Neutrophils # (Auto) 2.39 K/uL Lymphocytes # (Auto) 1.50 K/uL Monocytes # (Auto) 0.66 K/uL Eosinophils # (Auto) 0.11 K/uL Basophils # (Auto) 0.02 K/uL RDW Standard Deviation 36.5 fL RDW Coefficient of Variation 11.9 % Immature Granulocyte % (Auto) 0.2 % Immature Granulocyte # (Auto) 0.01 K/uL Assessment and Plan Assessment: 61 yo CM who presented with abdominal pain and hematochezia for Colonoscopy today. Plan: Proceed with colonoscopy.
--- NOTE | 2017-08-03 16:05 | GI REPORT ---
Procedure Date: 08/03/2017 3:26 PM Procedure: Colonoscopy Indications: Abdominal pain in the left lower quadrant, Hematochezia Medicines: Monitored Anesthesia Care Complications: No immediate complications. Estimated Blood Loss: Estimated blood loss: none. Procedure: Pre-Anesthesia Assessment: - Prior to the procedure, a History and Physical was performed, and patient medications and allergies were reviewed. The patient's tolerance of previous anesthesia was also reviewed. The risks and benefits of the procedure and the sedation options and risks were discussed with the patient. All questions were answered, and informed consent was obtained. Prior Anticoagulants: The patient has taken aspirin, last dose was 4 days prior to procedure. ASA Grade Assessment: II - A patient with mild systemic disease. After reviewing the risks and benefits, the patient was deemed in satisfactory condition to undergo the procedure. After I obtained informed consent, the scope was passed under direct vision. Throughout the procedure, the patient's blood pressure, pulse, and oxygen saturations were monitored continuously. The scope was introduced through the anus and advanced to the terminal ileum. The colonoscopy was performed without difficulty. The patient tolerated the procedure well. The quality of the bowel preparation was good. The terminal ileum, ileocecal valve, appendiceal orifice, and rectum were photographed. Findings: The perianal and digital rectal examinations were normal. Multiple small-mouthed diverticula were found in the sigmoid colon. Non-bleeding internal hemorrhoids were found during retroflexion. The hemorrhoids were small. Impression: - Diverticulosis in the sigmoid colon. - Non-bleeding internal hemorrhoids. - No specimens collected. Recommendation: - [facility]. - Advance diet as tolerated. - Continue present medications. Dell Glez DO 08/03/2017 4:05:05 PM This report has been signed electronically. Note Initiated On: 08/03/2017 3:26 PM I attest to the content of the Intraoperative Record and orders documented therein, exceptions below
--- NOTE | 2017-08-03 16:15 | Anesthesiology Progress Note ---
Anesthesia Post Op Note Date & Time Aug 03, 2017 at 16:14 Vital Signs Pain Intensity: 0.0 Vital Signs Past 12 Hours Date Time Temp Pulse Resp B/P (MAP) Pulse Ox O2 Delivery O2 Flow Rate FiO2 08/03/17 15:09 37.3 68 16 149/93 (111) 95 Room Air 08/03/17 11:21 Room Air 08/03/17 08:00 36.6 57 18 147/93 (111) 95 Room Air Notes Mental Status: alert / awake / arousable, participated in evaluation Pt Amnestic to Procedure: Yes Nausea / Vomiting: adequately controlled Pain: adequately controlled Airway Patency, RR, SpO2: stable & adequate BP & HR: stable & adequate Hydration State: stable & adequate Anesthetic Complications: no major complications apparent The patient did well with the procedure. He is awake and his vitals are stable in recovery.
[2017-08-03 17:03] VITALS: BP 165/90; PULSE 58; TEMP 36.7; O2SAT 95
--- NOTE | 2017-08-03 17:34 | Progress Note ---
Medicine Progress Note Date & Time of Visit: Aug 03, 2017 at 17:13. Subjective Pt was seen and examined Standing at the side of his bed with no distress He just had his colonoscopy done today He said that he feels fine Denied any blood in stools, palpitation, dizziness and SOB Objective Last 8 Hrs Date Time Temp Pulse Resp B/P (MAP) Pulse Ox O2 Delivery O2 Flow Rate FiO2 08/03/17 17:03 36.7 58 18 165/90 (115) 95 Room Air 08/03/17 16:40 59 18 160/87 (111) 95 Room Air 08/03/17 16:24 66 16 143/90 (107) 96 Room Air 08/03/17 16:09 77 16 141/85 (103) 96 Room Air 08/03/17 15:09 37.3 68 16 149/93 (111) 95 Room Air 08/03/17 11:21 Room Air Physical Exam: General- no acute distress Head- atraumatic Eyes- PERRL, EOMI ENT- oropharynx clear Neck- supple, no JVD Lungs- clear to auscultation Heart- regular rhythm Abdomen- normal bowel sounds, nontender, + BS Extremities- no calf tenderness Neuro- alert, oriented x 3; PERRL, EOMI Skin- warm & dry Laboratory Results: Last 24 Hours Test 08/03/17 06:23 White Blood Count 4.69 K/uL Red Blood Count 4.78 M/uL Hemoglobin 14.6 g/dL Hematocrit 40.4 % Mean Corpuscular Volume 84.5 fL Mean Corpuscular Hemoglobin 30.5 pg Mean Corpuscular Hemoglobin Concent 36.1 g/dl Platelet Count 121 K/uL Mean Platelet Volume 9.4 fL Neutrophils (%) (Auto) 51.0 % Lymphocytes (%) (Auto) 32.0 % Monocytes (%) (Auto) 14.1 % Eosinophils (%) (Auto) 2.3 % Basophils (%) (Auto) 0.4 % Neutrophils # (Auto) 2.39 K/uL Lymphocytes # (Auto) 1.50 K/uL Monocytes # (Auto) 0.66 K/uL Eosinophils # (Auto) 0.11 K/uL Basophils # (Auto) 0.02 K/uL RDW Standard Deviation 36.5 fL RDW Coefficient of Variation 11.9 % Immature Granulocyte % (Auto) 0.2 % Immature Granulocyte # (Auto) 0.01 K/uL Assessment & Plan GI bleeding Present with lowed abdominal pain CT abd showed diverticulosis of the proximal sigmoid colon. No bowel obstruction. Hgb stable Continue Ceftriaxone and Flagyl IV Stool negative for Cdiff Pain resolved No further episode of GI bleed Has been NPO for the colonoscopy Starting on diet, if tolerated will discharge home tonight Hgb stable Colonoscopy showed - Diverticulosis in the sigmoid colon. - Non-bleeding internal hemorrhoids. UTI Meet SIRS criteria on admission with tachycardia, febrile has been afebrile for more than 48 hrs Urine cx grew gram negative bacilli - Citrobacter Koseri On IV rocephin abx Will change to cipro po on discharge to complete 7 days abx denies any urinary symptoms Left renal calculus CT abd showed nonobstructing 7 mm calculus in the left renal pelvis and convincing evidence of obstruction. urology has been consulted Will need outpatient appt to schedule extracorporal shockwave lithotripsy Thrombocytopenia Plt improve to 121 No signs of bleeding Monitor cbc Hypertension stable. Coronary artery disease status post stenting Stable DVT px on SCD CODE STATUS FULL CODE DISPOSITION Will discharge home today Follow up with Dr. Lucero on 08/11 @ 11 AM Consultants: Gastro Current Inpatient Medications: Current Inpatient Medications Medications (Trade) Dose Ordered Sig/Robles Route Start Time Stop Time Status Last Admin Dose Admin Ioversol (Optiray 320) 111 ml UD PRN IV 07/30/17 22:00 08/03/17 21:59 Acetaminophen (Tylenol Tab) 650 mg Q6H PRN PO 07/30/17 23:15 08/29/17 23:14 07/31/17 21:58 650 MG Metoprolol Tartrate (Lopressor Tab) 25 mg BID PO 07/31/17 08:00 08/30/17 08:59 08/02/17 19:31 25 MG Tramadol HCl (Ultram Tab) 25 mg Q6H PRN PO 07/31/17 00:00 08/30/17 00:00 Prochlorperazine Edisylate 5 mg/ Syringe 5 ml @ 5 mls/min Q6H PRN IV 07/31/17 00:00 08/30/17 00:00 Lorazepam (Ativan Inj) 0.5 mg Q4H PRN IV 07/31/17 00:00 08/30/17 00:00 Ceftriaxone Sodium 1 gm/ Dextrose 50 ml @ 100 mls/hr Q24H IV 07/31/17 09:00 08/10/17 08:59 08/03/17 09:39 100 MLS/HR Ketorolac Tromethamine (Toradol Inj) 15 mg Q6H PRN IV. 07/31/17 00:00 08/05/17 00:00 08/02/17 08:10 15 MG Atorvastatin Calcium (Lipitor Tab) 80 mg QAM PO 07/31/17 08:00 08/30/17 08:59 08/02/17 08:05 80 MG Lorazepam 0.5 mg/ Syringe 1 ml @ 1 mls/min Q4H PRN IV 07/31/17 03:15 08/30/17 03:14 Metronidazole 500 mg/Prmx 100 ml @ 100 mls/hr Q8H IV 07/31/17 22:00 08/10/17 21:59 08/03/17 13:28 100 MLS/HR
[2017-08-03] MEDS ORDERED: CIPR-255 PO (17:46)
--- NOTE | 2017-08-03 18:02 | Discharge Instructions ---
Discharge Instructions Date of Service Aug 03, 2017. Admission Reason for Admission: Sepsis Discharge Discharge Diagnosis / Problem: Abdominal Pain, UTI, Left renal calculus, Thrombocytepenia Discharge Goals Goal(s): Decrease discomfort, Improve function, Improve disease control Activity Recommendations Activity Limitations: resume your previous activity (as tolerated) . Instructions / Follow-Up Instructions / Follow-Up Follow up with your primary care provider Dr. Lucero on 08/11 @ 11:00AM Follow up with Urology for the left kidney stone (Please call to schedule for the appointment) Follow up with Gastro as needed Avoid NSAID such for now (such as Motrin, Aleve, Advil, Naproxen and Ibuprofen) OK to restart Aspirin ( if bleeding reoccurs, please hold the aspirin and seek medical attention) Complete the course of antibiotic Current Hospital Diet Patient's current hospital diet: AHA Diet (Heart Healthy) Discharge Diet Recommended Diet: AHA Diet (Heart Healthy) Procedures Procedures Performed: Colonoscopy Pending Studies Studies pending at discharge: no Laboratory Results Hemoglobin A1c Test 07/30/17 21:15 Range/Units Estimated Average Glucose 111 mg/dl Hemoglobin A1c 5.5 4.5-5.6 % Medical Emergencies . Who to Call and When: Medical Emergencies: If at any time you feel your situation is an emergency, please call 911 immediately. . Non-Emergent Contact Non-Emergency issues call your: Primary Care Provider Call Non-Emergent contact if: you have a fever, you have any medication questions . . "Provider Documentation" section prepared by Jimmy Truong. .
[2017-08-03 18:16] VITALS: BP 165/90; PULSE 58; TEMP 36.7; O2SAT 95
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
== END 2017-08-03 18:46 | disposition home or self-care (01) | DRG 871 ==
LOC: C.EDB 20:06 → C.4E 23:28 → ENRESERV 23:38
PROVIDERS: ADMIT Internal Medicine; ATTEND Internal Medicine
PROC: 0DJD8ZZ Inspection of Lower Intestinal Tract, Via Natural or Artificial Opening Endoscopic (ICD-10-PCS; principal; 2017-08-03 15:30)
DX: A41.89 Other specified sepsis (principal); K57.31 Diverticulosis of large intestine without perforation or abscess with bleeding; N39.0 Urinary tract infection, site not specified; B96.89 Other specified bacterial agents as the cause of diseases classified elsewhere; K64.8 Other hemorrhoids; D69.59 Other secondary thrombocytopenia; N20.0 Calculus of kidney; R31.29 Other microscopic hematuria; F44.9 Dissociative and conversion disorder, unspecified; I10 Essential (primary) hypertension; E78.5 Hyperlipidemia, unspecified; I25.10 Atherosclerotic heart disease of native coronary artery without angina pectoris; I25.2 Old myocardial infarction; E66.9 Obesity, unspecified; Z68.31 Body mass index [BMI] 31.0-31.9, adult; Z95.5 Presence of coronary angioplasty implant and graft; Z79.82 Long term (current) use of aspirin; Z79.899 Other long term (current) drug therapy; Z88.5 Allergy status to narcotic agent

== ENCOUNTER 2017-08-14 08:33 | Emergency (ER) | payer BC ==
[~2017-08-14] VITALS: Ht 175.3 cm; Wt 92.8 kg
[~2017-08-14 08:33] MED LIST changes: -ASPI325T45 PO; +CIPR-255 PO; -LOSA50TA54 PO; -ONDA4TAB46 PO
[2017-08-14 08:39] VITALS: TEMP 36.8; Ht 175.3 cm; Wt 92.8 kg
[2017-08-14] MEDS ORDERED: SODIUM CHLORIDE 0.9% 1000ML 1,000 ML IV STA (08:57)
[2017-08-14 09:15] LABS: BASO % 0.3 %; BASO ABS # 0.04 K/uL (0-0.2); EOS ABS # 0.11 K/uL (0-0.5); HEMATOCRIT 45.3 % (42-52); HEMOGLOBIN 16.4 g/dL (14.0-18.0); IG# 0.04 K/uL (0.00-0.02); LYMPH ABS # 1.96 K/uL (1.2-3.4); MEAN CELL VOLUME 85.5 fL (80-100); MEAN CORPUSCULAR HEMOGLOBIN 30.9 pg (25-34); MEAN CORPUSCULAR HGB CONC 36.2 g/dl (32-36); MEAN PLATELET VOLUME 9.1 fL (7.4-10.4); MONO ABS # 1.38 K/uL (0.11-0.59); NEUT % 69.4 %; NEUT ABS # 7.98 K/uL (1.4-6.5); PLATELET COUNT 166 K/uL (130-400); RED CELL DISTRIBUTION WIDTH CV 12.3 % (11.5-14.5); RED CELL DISTRIBUTION WIDTH SD 38.6 fL (36.4-46.3); WHITE BLOOD COUNT 11.51 K/uL (4.8-10.8)
[2017-08-14 09:33] LABS: ALBUMIN 3.6 gm/dl (3.4-5.0); CALCIUM 9.4 mg/dl (8.5-10.1); CREATININE 1.17 mg/dl (0.60-1.40); POTASSIUM 3.8 mmol/L (3.5-5.1)
[2017-08-14 09:36] LABS: TOTAL PROTEIN 7.1 gm/dl (6.4-8.2)
[2017-08-14] MEDS ORDERED: ATOR-26 PO (09:39)
[2017-08-14] MEDS ORDERED: METO25TA56 PO (09:39)
[2017-08-14] MEDS ORDERED: OMEG10007 PO (09:39)
--- NOTE | 2017-08-14 09:58 | DIAGNOSTIC IMAGING REPORT ---
PA CHEST RADIOGRAPH AND UPRIGHT AND SUPINE AP RADIOGRAPHS OF THE ABDOMEN CLINICAL HISTORY: Abdominal pain. Recent colonoscopy. COMPARISON STUDY: Chest radiograph and CT of the abdomen and pelvis July 30, 2017 and [facility] July 31, 2017. FINDINGS: Lung volumes are normal. A few metallic densities project over the upper chest. No consolidation is identified. There is no evidence for pulmonary edema. Cardiomediastinal silhouette is stable. There is no free air. A 1.1 cm left renal pelvis calculus is likely unchanged in position. There is a 7 mm calculus within the lower pole the left kidney. Pelvic calcifications likely reflect phleboliths. There is no evidence for a bowel obstruction. Apparent wall thickening of the transverse colon is noted. IMPRESSION: 1. No free air or evidence of bowel obstructive. 2. Apparent wall thickening of the transverse colon. This is probably artifactual however a colitis could appear similar. 3. 1.1 cm left renal pelvis calculus and a 0.7 cm left renal calculus. No ureteral calculi. 4. No acute cardiopulmonary findings. Electronically signed by: Mikey Tam M.D. 08/14/2017 9:56 AM Dictated Date/Time: 08/14/2017 9:52 AM
[2017-08-14 10:32] LABS: PTT PATIENT 25.3 SECONDS (21.0-31.0)
[2017-08-14] MEDS ORDERED: OPTIRAY 320 IV PRN (10:45)
--- NOTE | 2017-08-14 11:08 | DIAGNOSTIC IMAGING REPORT ---
CT SCAN OF THE ABDOMEN AND PELVIS WITH IV CONTRAST CLINICAL HISTORY: Diarrhea. Hematochezia. COMPARISON STUDY: Abdominal CT dated 07/30/2017. TECHNIQUE: Following the IV administration of 94 cc of Optiray 320, CT scan of the abdomen and pelvis is performed from the lung bases to the proximal femora. Images are reviewed in the axial, sagittal, and coronal planes. IV contrast was administered without complication. A dose lowering technique was utilized adhering to the principles of ALARA. CT DOSE: 1003.86 mGycm FINDINGS: Lung bases: The heart is normal in size and without pericardial effusion. The lung bases are clear. Small metallic foreign bodies/BBs are present in the right chest wall as seen on axial images #4 and #63. Liver: The contrast-enhanced liver is enlarged, measuring 18.8 cm in length. The liver demonstrates diffusely diminished attenuation consistent with hepatic steatosis. There is no intrahepatic biliary ductal dilatation. The hepatic veins and portal veins are patent. Gallbladder: Surgically absent noting clips in the gallbladder fossa. Spleen: The spleen is mildly enlarged measuring 13.5 cm in length. Pancreas: Unremarkable. Adrenal glands: Unremarkable. Kidneys: The contrast enhanced kidneys demonstrate mild cortical atrophy and are without hydronephrosis. The kidneys enhance symmetrically. There is a circumaortic left renal vein. There is a 12 mm calculus in the left renal pelvis seen on image #168. There is stranding within the peripelvic fat. 2 additional nonobstructing calculi are seen in the left lower pole. Abdominal vasculature: The abdominal aorta is normal in course and caliber noting mild to moderate atherosclerotic calcification. Bowel: There is mild mucosal edema with faint pericolonic infiltration seen involving the colon, greatest from the distal transverse colon to the sigmoid. The appearance suggests a mild colitis. There is mild colonic diverticulosis without CT evidence of acute diverticulitis. No bowel obstruction is seen. The appendix is well-visualized and normal. Peritoneum: There is no intraperitoneal free air or abdominal ascites. There is a small fat-containing umbilical hernia. Lymphadenopathy: None. Pelvic viscera: The bladder is decompressed and grossly unremarkable. The prostate gland is diminutive and heterogeneous. Surgical clips are noted along the spermatic cord. Skeletal structures: No lytic or blastic lesions are seen. IMPRESSION: 1. Findings suggest a mild nonspecific colitis of left colon, likely on an infectious or inflammatory basis. Clinical correlation will be required. 2. There is a 12 mm calculus identified in the left renal pelvis, with associated infiltration of the parapelvic fat. No hydronephrosis is seen. Inflammatory change may be related to intermittent obstruction, inflammation, or possibly superimposed infection. Correlation with urinalysis will be required. 3. Additional nonobstructing calculi are seen in the left lower pole. 4. Hepatomegaly and hepatic steatosis. 5. Mild splenomegaly. 6. Mild colonic diverticulosis without CT evidence of acute diverticulitis. Electronically signed by: Jarvis Shields M.D. 08/14/2017 11:07 AM Dictated Date/Time: 08/14/2017 10:50 AM
[2017-08-14] MEDS ORDERED: VANC5CAP PO (11:28)
[2017-08-14 11:41] VITALS: BP 146/91; PULSE 71; O2SAT 95
--- NOTE | 2017-08-14 16:13 | EMERGENCY ROOM VISIT NOTE ---
ED Visit Note First contact with patient: 08:49 Chief Complaint: Abdominal pain and diarrhea. History of Present Illness: Mr. Stevens is a 61 year-old white male who ambulates into the ED complaining of central mid abdominal pain and diarrhea. Historically patient reports was admitted on July 30 and discharged on August 03 of this year for a GI bleed and a secondary diagnosis of urinary tract infection and thrombocytopenia. During his stay in the emergency department a colonoscopy was performed and was found to be to show that the patient had diverticulosis but no evidence of diverticulitis and an internal hemorrhoid. Additionally he has a history of GERD, gastropathy and recurrent diverticulitis. On discharge he was prescribed ciprofloxacin for his urinary tract infection. Patient reports a since his colonoscopy he has been having multiple episodes of light brown watery diarrhea. He reports up to 2 times an hour. He has not seen any blood or melena. Associated with his diarrhea he is reporting he is having abdominal pain just superior to the umbilicus in the central portion of the abdomen. He describes this as a burning sensation. He rates his discomfort 3/10. This discomfort is nonradiating. He has not identified any aggravating or alleviating factors related to this pain. He has not taken any medications for this pain prior to arrival at the hospital. Associated with his pain and diarrhea he reports he has noted a dramatic increase in fluctuance and he has been nauseated but has not vomited. Patient denies fevers, chills, sweats, skin eruptions, skin color changes, upper respiratory tract symptoms, shortness of breath, chest pain, decreased appetite, urinary symptoms, hematuria, back/flank pain. Review of Systems: As noted above in history of present illness. All body systems were reviewed and found to be negative as noted above. Past Medical History: As previously noted and coronary artery disease status post stenting, hypertension, bilateral renal calculus, cervical radiculopathy, anemia, dyslipidemia, COPD, renal insufficiency, status post unspecified knee surgery and lithotripsy. Current Medications: Nitroglycerin, Lipitor, omega-3 fish oil, Lopressor, vitamins, and aspirin. Allergies to Medications: Oxycodone. Social History: Patient is not employed; he lives with his and feels safe in his home environment; he denies tobacco use and admits to social alcohol use. Physical Examination: Vital Signs: Date Time Temp Pulse Resp B/P (MAP) Pulse Ox O2 Delivery O2 Flow Rate FiO2 08/14/17 11:41 71 18 146/91 95 08/14/17 10:27 77 18 143/89 95 Room Air 08/14/17 09:23 80 08/14/17 08:39 36.8 94 17 152/82 93 Room Air GENERAL: 61-year-old male in mild distress due to pain and symptoms, nontoxic- appearing, afebrile and hemodynamically stable. NEUROLOGICAL: Awake, alert and oriented to person, place and time. Answering questions appropriately and following commands. Normal gait. Good hand eye coordination. SKIN: Warm, dry and pink. No soft tissue eruptions or trauma noted. HEENT: Atraumatic and normocephalic. PERRLA. Sclera white and conjunctiva pink. Oral cavity moist and pink. Pharynx is nonerythematous or edematous. Speech normal. No lymphadenopathy. Trachea midline. No jugular venous distention. BACK: No tenderness over the bony spine. No CVA tenderness. THORAX: Lungs sounds are clear to auscultation and equal bilaterally with symmetrical chest wall. No wheezing, rales or rhonchi. No crepitus, tenderness , subcutaneous air or deformities noted. HEART: Regular rate and rhythm. No gallops, rubs or murmurs are appreciated. ABDOMEN: Flat, soft and nontender. Increased bowel sounds in all quadrants. No guarding, rigidity or organomegaly. EXTREMITIES: Moves all extremities well on command and with purpose. All distal neurovascular statuses are intact and equal bilaterally. ED Course: Patient is assessed as noted above. Patient's medication list was reviewed. Laboratory Testing: Test 08/14/17 09:05 08/14/17 10:10 Range/Units White Blood Count 11.51 4.8-10.8 K/uL Red Blood Count 5.30 4.7-6.1 M/uL Hemoglobin 16.4 14.0-18.0 g/dL Hematocrit 45.3 42-52 % Mean Corpuscular Volume 85.5 80-100 fL Mean Corpuscular Hemoglobin 30.9 25-34 pg Mean Corpuscular Hemoglobin Concent 36.2 32-36 g/dl Platelet Count 166 130-400 K/uL Mean Platelet Volume 9.1 7.4-10.4 fL Neutrophils (%) (Auto) 69.4 % Lymphocytes (%) (Auto) 17.0 % Monocytes (%) (Auto) 12.0 % Eosinophils (%) (Auto) 1.0 % Basophils (%) (Auto) 0.3 % Neutrophils # (Auto) 7.98 1.4-6.5 K/uL Lymphocytes # (Auto) 1.96 1.2-3.4 K/uL Monocytes # (Auto) 1.38 0.11-0.59 K/uL Eosinophils # (Auto) 0.11 0-0.5 K/uL Basophils # (Auto) 0.04 0-0.2 K/uL RDW Standard Deviation 38.6 36.4-46.3 fL RDW Coefficient of Variation 12.3 11.5-14.5 % Immature Granulocyte % (Auto) 0.3 % Immature Granulocyte # (Auto) 0.04 0.00-0.02 K/uL Prothrombin Time 10.7 9.0-12.0 SECONDS Prothromb Time International Ratio 1.0 0.9-1.1 Activated Partial Thromboplast Time 25.3 21.0-31.0 SECONDS Partial Thromboplastin Ratio 1.0 Sodium Level 138 136-145 mmol/L Potassium Level 3.8 3.5-5.1 mmol/L Chloride Level 104 98-107 mmol/L Carbon Dioxide Level 26 21-32 mmol/L Anion Gap 8.0 3-11 mmol/L Blood Urea Nitrogen 17 7-18 mg/dl Creatinine 1.17 0.60-1.40 mg/dl Est Creatinine Clear Calc Drug Dose 74.6 ml/min Estimated GFR () 77.5 Estimated GFR (Non- 66.9 BUN/Creatinine Ratio 14.4 10-20 Random Glucose 101 70-99 mg/dl Calcium Level 9.4 8.5-10.1 mg/dl Total Bilirubin 1.8 0.2-1 mg/dl Direct Bilirubin 0.3 0-0.2 mg/dl Aspartate Amino Transf (AST/SGOT) 24 15-37 U/L Alanine Aminotransferase (ALT/SGPT) 62 12-78 U/L Alkaline Phosphatase 82 45-117 U/L Total Protein 7.1 6.4-8.2 gm/dl Albumin 3.6 3.4-5.0 gm/dl Lipase 141 73-393 U/L Urine Color DK YELLOW Urine Appearance CLEAR CLEAR Urine pH 5.0 4.5-7.5 Urine Specific [place] 1.021 1.000-1.030 Urine Protein NEG NEG Urine Glucose (UA) NEG NEG Urine Ketones NEG NEG Urine Occult Blood NEG NEG Urine Nitrite NEG NEG Urine Bilirubin NEG NEG Urine Urobilinogen NEG NEG Urine Leukocyte Esterase NEG NEG Stool Guaiac: Positive. Microbiology Results 08/14/17 C.difficile Toxin B Gene (PCR): Positive for C. difficile toxin B gene 08/14/17 Rotavirus Antigen: Negative for Rotavirus Antigen 08/14/17 Shiga Toxin Test: Pending 08/14/17 Stool Culture: Pending Acute Abdominal Series: Was read by myself and the radiologist showing no free air, evidence of bowel obstruction, wall thickening of the transverse colon, bilateral renal calculi with no ureter calculi and no acute infiltrates, effusions or pneumothorax. Normal heart silhouette and bony anatomy. IV Contrast Abdominal/Pelvic CT: Was reviewed by myself and read by the radiologist showing findings suggestive of mild nonspecific colitis of the left colon, bilateral renal calculi with a 12 mm calculus in the left renal pelvis with associated inflammation of parapelvic fat. Additional nonobstructive calculi. Hepatomegaly and hepatic steatpsos. Mild splenomegaly. Mild colonic diverticulosis without acute diverticulitis. Patient was hydrated with normal saline; patient was offered pain medication and refused. Patient was reassessed multiple times during his stay in the emergency department. Patient's case was reviewed with Dr. Mathews; we agreed on diagnostic approach, treatment, disposition and plan. Patient was educated about today's findings and instructed on his treatment plan ; he verbalized understanding and agreement with this plan. Clinical Impression: C. difficile colitis. Decision-Making: Initially my differential diagnosis I considered bowel obstruction, perforated viscus, colitis, C. difficile, diverticulitis and other causes. Disposition: Patient discharged home in stable condition; prior to departure he was reassessed and subjectively reported he was pain-free. Plan: Patient was encouraged you 650 mg of acetaminophen every 6 hours as needed for pain. Patient was prescribed 125 mg of vancomycin 4 times a day for 10 days. Patient was encouraged to stay well-hydrated with increased clear fluids. Patient was encouraged to follow-up with his PCP for recheck in 2-3 days. Patient was encouraged to return the ED for worsening pain, worsening diarrhea, bloody stools, fevers or any new/concerning symptoms.
[2017-08-14] MEDS ORDERED: CHOL1000 PO (18:18)
[2017-08-14] MEDS ORDERED: CYAN10004 PO (18:18)
[2017-08-14] MEDS ORDERED: ASPI81TA28 PO (22:37)
== END 2017-08-14 11:42 | disposition home or self-care (01) ==
LOC: C.EDB 08:35 → C.EDA 11:42
DX: A04.72 Enterocolitis due to Clostridium difficile, not specified as recurrent (principal); N20.0 Calculus of kidney; K21.9 Gastro-esophageal reflux disease without esophagitis; K31.9 Disease of stomach and duodenum, unspecified; I25.10 Atherosclerotic heart disease of native coronary artery without angina pectoris; Z95.5 Presence of coronary angioplasty implant and graft; I10 Essential (primary) hypertension; Z87.442 Personal history of urinary calculi; D64.9 Anemia, unspecified; E78.5 Hyperlipidemia, unspecified; J44.9 Chronic obstructive pulmonary disease, unspecified; Z79.82 Long term (current) use of aspirin; Z79.899 Other long term (current) drug therapy; Z88.5 Allergy status to narcotic agent

== ENCOUNTER → 2017-08-31 | Outpatient (CLI) | payer BC ==
[~2017-08-31] MED LIST changes: +ASPI81TA28 PO; +ATOR-26 PO; +CHOL1000 PO; -CIPR-255 PO; +CYAN10004 PO; +METO25TA56 PO; +OMEG10007 PO; +VANC5CAP PO
== END | disposition home or self-care (01) ==
LOC: C.LABSPEC 17:24
PROVIDERS: ATTEND Urology
DX: N20.0 Calculus of kidney (principal)

== ENCOUNTER → 2017-09-11 | Day surgery (SDC) | payer BC ==
[2017-09-02 07:17] VITALS: Ht 175.3 cm; Wt 95.5 kg
--- NOTE | 2017-09-10 10:02 | DIAGNOSTIC IMAGING REPORT ---
KUB CLINICAL HISTORY: 61 years-old Male presenting with N20.0 Kidney stones TO BE DONE EITHER THE NIGHT BEFORE OR MORNING. TECHNIQUE: Single supine view of the abdomen was obtained. COMPARISON: CT from 08/14/2017 and abdominal radiograph from 08/14/2017. FINDINGS: Cholecystectomy clips noted. Nonobstructive bowel gas pattern. No gross pneumoperitoneum. 14 mm calculus at the level of the left renal pelvis. Additional lower pole left renal calculus noted. No radiographically apparent right renal calculi. No ureteral calculi. A surgical clip projects over the pelvis. Atherosclerosis. Degenerative changes of the hip joints with preservation of joint space. IMPRESSION: 1. Unchanged position of the left renal pelvis 14 mm calculus. 2. Left lower pole renal calculus. Electronically signed by: Randolph Calhoun M.D. 09/10/2017 10:01 AM Dictated Date/Time: 09/10/2017 9:59 AM
[~2017-09-11] VITALS: Ht 175.3 cm; Wt 95.5 kg
[~2017-09-11] MED LIST changes: +ACET-749 PO; +ACETAMINOPHEN 325 MG TAB PO PRN; +ATROPINE SULFATE 0.1 MG/ML 5ML SYR IV PRN; +CIPROFLOXACIN 400MG / D5W IV SCH; +DEXAMETHASONE SOD INJ 4 MG/ML VIAL ONE; +EpHEDrine SULFATE INJ 50 MG/ML AMP IV PRN; +EpHEDrine SULFATE INJ 50 MG/ML AMP ONE; +FENTANYL CITRATE INJ 50 MCG/1 ML 2 ML VIAL IV PRN; +FENTANYL CITRATE INJ 50 MCG/1 ML 2 ML VIAL ONE; +FLUMAZENIL 0.1 MG/1 ML 10 ML VIAL IV PRN; +HYDROCODONE/ACETAMIN 5/325MG TAB PO PRN; +LABETALOL HCL IV 5 MG/ML 20ML IV PRN; +LACTATED RINGER'S 1000ML 1,000 ML IV SCH; +LIDOCAINE HCL 2% 2 ML VIAL (20MG/ML) ONE; +MEPERIDINE HCL 25 MG/ML CARP IV PRN; +MIDAZOLAM HCL 1 MG/ML 2ML VIAL ONE; +NALOXONE HCL 0.4 MG/1 ML VIAL/CARP IV PRN; +ONDANSETRON INJ 2 MG/ML 2 ML VIAL IV PRN; +ONDANSETRON INJ 2 MG/ML 2 ML VIAL ONE; +PHENYLEPHRINE 100MCG/ML 5ML SYR IV PRN; +PROPOFOL IV EMULSION 10 MG/ML 20 ML VIAL IV ONE; +SODIUM CHLORIDE 0.9% 1000ML 1,000 ML IV SCH; +SODIUM CHLORIDE 0.9% INJ 10 ML VIAL ONE; -VANC5CAP PO
--- NOTE | 2017-09-11 08:33 | [facility] Operative Report ---
Operative Report Operative Date Sep 11, 2017. Pre-Operative Diagnosis Left renal calculi Post-Operative Diagnosis Same as pre-op Procedure(s) Performed Left Extracorporeal Shock Wave Lithotripsy - Renal Surgeon Dr. Gretta Stephens [facility] Surgeon(s) None Estimated Blood Loss 0 mL Findings Left renal stone Specimens None Drains None Anesthesia Type General Complication(s) none Disposition yes Recovery Room / PACU Indications Left renal stone Description of Procedure The patient was identified in the preoperative holding area, appropriate informed consent was reviewed and completed and the patient was transported to the operating suite. Upon arrival appropriate preoperative antibiotics were administered and general anesthesia induced. The patient was placed in supine position and the stone was localized under fluoroscopy. A total of 2500 shocks were delivered to the stone. There appeared to be good fragmentation of the stone. Details of this procedure can be found on the [facility] information sheet. At the conclusion of the case the patient was extubated and taken to the PACU in stable condition. There were no complications. I attest to the content of the Intraoperative Record and any orders documented therein. Any exceptions are noted below.
--- NOTE | 2017-09-11 08:37 | Discharge Instructions-SurgCtr ---
Discharge Instructions Date of Service Sep 11, 2017. Visit Reason for Visit: STONE Discharge Discharge Diagnosis / Problem: stones Discharge Goals Goal(s): Decrease discomfort, Improve function, Increase independence, Improve disease control, Prevent Disease Progression Medications Stopped Medications Name(s): No ASA since 09-05-17 Activity Recommendations Activity Limitations: resume your previous activity Lifting Limitations: none Exercise/Sports Limitations: none May Resume Sexual Activity: when tolerated Shower/Bathe: no limitations Driving or Machine Use: resume 1 day after discharge Anesthesia . Post Anesthesia Instructions: If you have had General Anesthesia or IV Sedation: * Do not drive today. * Resume driving when surgeon permits. * Do not make important decisions or sign legal documents today. * Call surgeon for: 1. Temperature elevations greater than 101 degrees F. 2. Uncontrollable pain. 3. Excessive bleeding. 4. Persistent nausea and vomiting. 5. Medication intolerance (nausea, vomiting or rash). * For nausea and vomiting use only clear liquids such as: tea, soda, bouillon until nausea subsides, then gradually increase diet as tolerated. * If you have any concerns or questions, call your surgeon's office. If physician is unavailable and it is an emergency, call 911 or go to the nearest emergency room. . Instructions / Follow-Up Instructions / Follow-Up Please keep your previously scheduled follow up appointment with Dr. Kat Kirby Recommendations Home Diet: no limitations, resume previous diet Procedures Procedures Performed: Left Extracorporeal Shock Wave Lithotripsy - Renal Pending Studies Studies pending at discharge: no Medical Emergencies . Who to Call and When: Medical Emergencies: If at any time you feel your situation is an emergency, please call 911 immediately. . Non-Emergent Contact Non-Emergency issues call your: Urologist Call Non-Emergent contact if: you have a fever, temperature is above 101.5, your pain is not controlled, your pain is worsening . . "Provider Documentation" section prepared by Tristian Espinal. . [place] Drug Monitoring Program Search Results: patient reviewed within database, no issues identified
--- NOTE | 2017-09-11 09:22 | Anesthesia Progress Nt - [facility] ---
Anesthesia Post Op Note Date & Time Sep 11, 2017 at 09:21 Vital Signs Pain Intensity: 0 Vital Signs Past 12 Hours Date Time Temp Pulse Resp B/P (MAP) Pulse Ox O2 Delivery O2 Flow Rate FiO2 09/11/17 09:18 36.4 73 16 128/83 97 Room Air 09/11/17 09:15 128/83 09/11/17 09:14 75 14 92 09/11/17 09:14 75 14 09/11/17 09:10 132/87 09/11/17 09:09 70 12 09/11/17 09:09 69 12 95 09/11/17 09:05 123/77 09/11/17 09:04 75 16 94 09/11/17 09:04 75 16 09/11/17 09:00 127/81 09/11/17 08:59 76 13 09/11/17 08:59 75 13 99 09/11/17 08:55 122/75 09/11/17 08:54 71 10 98 09/11/17 08:54 71 10 09/11/17 08:50 122/72 09/11/17 08:49 68 13 09/11/17 08:49 68 13 97 09/11/17 08:48 76 9 98 09/11/17 08:48 76 9 09/11/17 08:48 76 9 98 09/11/17 08:48 76 9 09/11/17 08:45 125/74 09/11/17 08:45 125/74 09/11/17 08:44 118/77 09/11/17 08:44 118/77 09/11/17 08:43 36.6 74 12 118/77 96 Mask 6 09/11/17 06:32 36.8 69 16 142/86 (104) 95 Room Air Notes Mental Status: alert / awake / arousable, participated in evaluation Pt Amnestic to Procedure: Yes Nausea / Vomiting: adequately controlled Pain: adequately controlled Airway Patency, RR, SpO2: stable & adequate BP & HR: stable & adequate Hydration State: stable & adequate Anesthetic Complications: no major complications apparent
[2017-09-11 09:23] VITALS: TEMP 36.6
[2017-09-11 09:47] VITALS: BP 138/83; PULSE 63; O2SAT 95
== END | disposition home or self-care (01) ==
LOC: X.SURG 06:18
PROVIDERS: ATTEND Urology
DX: N20.0 Calculus of kidney (principal); J44.9 Chronic obstructive pulmonary disease, unspecified; N18.9 Chronic kidney disease, unspecified; I12.9 Hypertensive chronic kidney disease with stage 1 through stage 4 chronic kidney disease, or unspecified chronic kidney disease; E78.5 Hyperlipidemia, unspecified; I25.2 Old myocardial infarction; Z79.899 Other long term (current) drug therapy; Z98.890 Other specified postprocedural states; Z90.49 Acquired absence of other specified parts of digestive tract; Z88.5 Allergy status to narcotic agent; Z79.82 Long term (current) use of aspirin

== ENCOUNTER → 2017-09-17 | Outpatient (CLI) | payer BC ==
[~2017-09-17] MED LIST changes: -ACETAMINOPHEN 325 MG TAB PO PRN; -ATROPINE SULFATE 0.1 MG/ML 5ML SYR IV PRN; -CIPROFLOXACIN 400MG / D5W IV SCH; -DEXAMETHASONE SOD INJ 4 MG/ML VIAL ONE; -EpHEDrine SULFATE INJ 50 MG/ML AMP IV PRN; -EpHEDrine SULFATE INJ 50 MG/ML AMP ONE; -FENTANYL CITRATE INJ 50 MCG/1 ML 2 ML VIAL IV PRN; -FENTANYL CITRATE INJ 50 MCG/1 ML 2 ML VIAL ONE; -FLUMAZENIL 0.1 MG/1 ML 10 ML VIAL IV PRN; -HYDROCODONE/ACETAMIN 5/325MG TAB PO PRN; -LABETALOL HCL IV 5 MG/ML 20ML IV PRN; -LACTATED RINGER'S 1000ML 1,000 ML IV SCH; -LIDOCAINE HCL 2% 2 ML VIAL (20MG/ML) ONE; -MEPERIDINE HCL 25 MG/ML CARP IV PRN; -MIDAZOLAM HCL 1 MG/ML 2ML VIAL ONE; -NALOXONE HCL 0.4 MG/1 ML VIAL/CARP IV PRN; -ONDANSETRON INJ 2 MG/ML 2 ML VIAL IV PRN; -ONDANSETRON INJ 2 MG/ML 2 ML VIAL ONE; -PHENYLEPHRINE 100MCG/ML 5ML SYR IV PRN; -PROPOFOL IV EMULSION 10 MG/ML 20 ML VIAL IV ONE; -SODIUM CHLORIDE 0.9% 1000ML 1,000 ML IV SCH; -SODIUM CHLORIDE 0.9% INJ 10 ML VIAL ONE
--- NOTE | 2017-09-17 13:08 | DIAGNOSTIC IMAGING REPORT ---
(RENAL)RETROPERITON COMP HISTORY: Nephrocalcinosis I10 [id number] Kidney [id number] [id number] Anemi COMPARISON: CT 08/14/2017. Renal ultrasound 02/16/2016. FINDINGS: Right kidney: Maximum dimension 10.8 cm. No evidence for hydronephrosis. Normal corticomedullary differentiation and cortical thickness. Left kidney: Maximum dimension 10.6 cm. No evidence for hydronephrosis. Several renal calcifications within the mid and lower pole measuring up to 8 mm. Normal corticomedullary differentiation and cortical thickness. Bladder: No bladder wall thickening. The bilateral ureteral jets were identified. IMPRESSION: 1. Several left renal nonobstructing calcifications. 2. No evidence for hydronephrosis. The above report was generated using voice recognition software. It may contain grammatical, syntax or spelling errors. Electronically signed by: Willy Lan M.D. 09/17/2017 1:06 PM Dictated Date/Time: 09/17/2017 1:04 PM
== END | disposition home or self-care (01) ==
LOC: C.ULTR 12:37
PROVIDERS: ATTEND Internal Medicine Nephrology
DX: I12.9 Hypertensive chronic kidney disease with stage 1 through stage 4 chronic kidney disease, or unspecified chronic kidney disease (principal); N20.0 Calculus of kidney; E78.5 Hyperlipidemia, unspecified; D64.9 Anemia, unspecified; N18.9 Chronic kidney disease, unspecified

== ENCOUNTER → 2017-09-22 | Outpatient (CLI) | payer BC ==
--- NOTE | 2017-09-22 10:54 | DIAGNOSTIC IMAGING REPORT ---
KUB CLINICAL HISTORY: N20.0 Kidney stonesTO BE DONE EITHER THE NIGHT BEFORE OR MORNING nephrocalcinosis COMPARISON STUDY: 09/10/2017 FINDINGS: The nephrocalcinosis at the mid and inferior aspect of the left kidney are not easily appreciated currently. This may be due to overlying fecal material. These were minimally radiopaque initially. Bowel pattern is nonobstructive. IMPRESSION: Nondiagnostic evaluation of the left kidney given the minimal radiopaque nature of the calcifications described previously. This is primarily due to overlying bowel content. Nonobstructive bowel pattern. The above report was generated using voice recognition software. It may contain grammatical, syntax or spelling errors. Electronically signed by: Willy Lan M.D. 09/22/2017 10:53 AM Dictated Date/Time: 09/22/2017 10:21 AM
== END | disposition home or self-care (01) ==
LOC: C.RAD 09:44
PROVIDERS: ATTEND Urology
DX: N20.0 Calculus of kidney (principal)

== ENCOUNTER 2019-10-14 05:25 | Inpatient (IN) ==
--- NOTE | 2019-10-06 13:04 | Anesthesiology Consultation ---
Date of Service October 06, 2019 Assessment & Plan (1) Encounter for pre-operative examination: Chart Review Chart Review: Acceptable Risk for Surgery (pending final PCP clearance ) and Patient NOT seen in Pre Admission Testing Seen by cardio 09/30/19= "Based on his functional without limiting cardiopulmonary symptoms, normal LV systolic function, and his normal EKG tracing 09/08/2019 (had repeat EKG 10/06/19 that showed no change from previous) -- Patient is an acceptable surgical risk to proceed with C-spine surgery as scheduled... here is no need for further cardiac evaluation at this time" Seen by PCP 09/26/19=awaiting preop testing information from Dr. Fatima prior to PCP clearance History Surgery Operation Date: 10/14/19 07:15 Proposed Procedures p C6-C7 Anterior Cervical Discectomy and Fusion, Possible C4-C5, Spinal Cord Monitoring - Tee Fatima, Height/Weight Height: 5 ft 9 in Weight: 90.718 kg Allergies Allergy/AdvReac Type Severity Reaction Status Date / Time oxycodone [From Percocet] Allergy Mild Rash Verified 09/30/19 11:41 Medications Home Medications Medication Instructions Recorded Confirmed Last Taken aspirin 81 mg PO QAM 04/12/18 09/30/19 10/12/18 cholecalciferol (vitamin D3) 2,000 unit PO BID 04/12/18 09/30/19 10/12/18 [Vitamin D3] cyanocobalamin (vitamin B-12) 1,000 mcg PO QAM 04/12/18 09/30/19 10/12/18 nitroglycerin [Nitrostat] 0.4 mg SUBLINGUAL UD PRN 04/12/18 09/30/19 Unknown omega 8-fmc-slb-fish oil [Fish Oil] 1,000 mg PO BID 04/12/18 09/30/19 10/12/18 pantoprazole 40 mg tablet,delayed 40 mg PO DAILY PRN 05/10/18 09/30/19 10/12/18 release hydrocodone 5 mg-acetaminophen 325 1 tab PO BID PRN 08/02/19 09/30/19 Unknown mg tablet metoprolol tartrate 25 mg tablet 25 mg PO BID #60 tab 08/18/19 09/30/19 Unknown atorvastatin 80 mg tablet 80 mg PO QAM #90 tab 08/22/19 09/30/19 Unknown Past Medical History Medical History CAD (coronary artery disease) S/P ELKIN in pLAD and Laurie 07/10/2014. NSTEMI 07/08/2014. Cervical radiculopathy Chronic kidney disease (CKD) Dyslipidemia Essential (primary) hypertension GERD (gastroesophageal reflux disease) History of kidney stones History of MA (myocardial infarction) 2014. X2 STENTS ([facility]) NO PROBLEMS SINCE/FOLLOWS DR CORREA [facility]. Past Family History Family History Other No significant family history Past Surgical History Surgical History H/O wrist surgery LEFT - tendon repair History of arthroscopy of left knee X3 History of colonoscopy History of cystoscopy KIDNEY STONE REMOVAL History of esophagogastroduodenoscopy (EGD) History of lithotripsy History of neck surgery BONE FUSION History of tooth extraction Hx of cholecystectomy Stented coronary artery 2015 ramus and LAD. Social History Smoking Status: Never smoker Do You Dip or Chew Tobacco: No Hx Alcohol Use: Yes Alcohol type: beer alcohol intake frequency: a few times a week Hx Substance Use: No substance use type: does not use Testing Laboratory Results Blood Type O Positive 10/06/19 09:05 Antibody Screen NEGATIVE 10/06/19 09:05 Laboratory Tests 10/06/19 10/06/19 10/06/19 09:04 09:04 09:04 WBC 5.72 Hgb 15.8 Hct 44.8 Plt Count 160 PT 11.3 INR 1.1 APTT 27.5 Sodium 140 Potassium 3.9 Chloride 111 H Carbon Dioxide 26 BUN 16 Creatinine 1.10 Glucose 122 H 10/06/19= UA: Negative Electrocardiogram Date: 10/06/19 Findings: + SB @ (58) and + no change from (September 07, 2018) Chest X-Ray Date: 10/06/19 Findings: + NAD Stress Test Date: 12/04/16 Type: exercise (Stress ECHO) Resting EF: 55-60% Resting LV Function: normal Resting RWMA: + none Valvular Disease: no significant valvular disease Diagnostic exercise ECHO without evidence of inducible ischemia. Normal baseline EKG without ischemic changes during exercise. Normal baseline ECHO. Grade I diastolic dysfunction. Cardiac Catheterization Date: 07/09/14 LM- no disease; LCx- no disease. Large OM- no disease. Ramus- prox 90% stenosis. LAD- prox 70% stenosis at 2nd septal. Type 3 LAD wrapping around apex. RCA- mild luminal irregularities. ELKIN to pLAD and pRamus.
[2019-10-14] MEDS ORDERED: LR 15ML/HR IV SCH (06:00)
[2019-10-14] MEDS ORDERED: ACETAMINOPHEN 500 MG TAB PO SCH (06:00)
[2019-10-14] MEDS ORDERED: GABAPENTIN 600 MG DOSE PO SCH (06:00)
[2019-10-14] MEDS ORDERED: CeleBREX 200 MG CAP PO SCH (06:00)
[2019-10-14] MEDS ORDERED: CEFAZOLIN 2000MG 2,000 MG/15 ML SYR IV SCH (06:00)
[2019-10-14] MEDS ORDERED: ROCURONIUM BROMIDE 10 MG/ML 5 ML VIAL ONE (06:49)
[2019-10-14] MEDS ORDERED: MIDAZOLAM HCL 1 MG/ML 2ML VIAL ONE (06:49)
[2019-10-14] MEDS ORDERED: ONDANSETRON INJ 2 MG/ML 2 ML VIAL ONE (06:49)
[2019-10-14] MEDS ORDERED: fentaNYL citrate 100 MCG/2 ML VIAL ONE (06:49)
[2019-10-14] MEDS ORDERED: LIDOCAINE HCL 2% 2 ML VIAL/AMP(20MG/ML) INFIL ONE (06:49)
[2019-10-14] MEDS ORDERED: PROPOFOL IV EMULSION 10 MG/ML 20 ML VIAL IV ONE (06:49)
[2019-10-14] MEDS ORDERED: DEXAMETHASONE SOD INJ 4 MG/ML VIAL ONE (06:49)
[2019-10-14] MEDS ORDERED: BACITRACIN INJ 50,000 UNIT VIAL ONE (06:59)
[2019-10-14] MEDS ORDERED: DexMEDEtomidine HCL IV 100 MCG/ML VIAL ONE (07:05)
[2019-10-14] MEDS ORDERED: fentaNYL citrate 100 MCG/2 ML VIAL IV PRN (07:08)
[2019-10-14] MEDS ORDERED: ONDANSETRON INJ 2 MG/ML 2 ML VIAL IV PRN ×2 (07:08→11:18)
[2019-10-14] MEDS ORDERED: ATROPINE SULFATE 0.1 MG/ML 10ML SYR IV PRN (07:08)
[2019-10-14] MEDS ORDERED: ePHEDrine sulfate 50 MG/ML AMP IV PRN (07:08)
--- NOTE | 2019-10-14 07:15 | History & Physical Bridge Note ---
Date of Service October 14, 2019 History & Physical Bridge Note I have examined the patient, reviewed the History & Physical and in the interval since the performance of the History & Physical I have noted the following changes of clinical significance: no changes noted
--- NOTE | 2019-10-14 07:18 | History & Physical Report ---
Date of Service October 14, 2019 Assessment & Plan (1) Cervical radiculopathy: Anterior cervical discectomy and fusion C6-7 possible C4-5 Present on Admission?: Yes History of Present Illness Chief Complaint: Neck and arm pain Primary Care Provider: Oli Lucero, This is a 64 old male that presents with chronic persistent neck and arm pain after failing course of nonoperative care is here for surgical invention. Allergies Allergy/AdvReac Type Severity Reaction Status Date / Time oxycodone [From Percocet] Allergy Mild Rash Verified 10/14/19 05:58 Home Medications Home Medications Medication Instructions Recorded Confirmed Type aspirin 81 mg PO QAM 04/12/18 10/14/19 History cholecalciferol (vitamin D3) 2,000 unit PO BID 04/12/18 10/14/19 History [Vitamin D3] cyanocobalamin (vitamin B-12) 1,000 mcg PO QAM 04/12/18 10/14/19 History nitroglycerin [Nitrostat] 0.4 mg SUBLINGUAL UD PRN 04/12/18 10/14/19 History omega 3-efi-dwn-fish oil [Fish Oil] 1,000 mg PO BID 04/12/18 10/14/19 History pantoprazole 40 mg tablet,delayed 40 mg PO DAILY PRN 05/10/18 10/14/19 History release hydrocodone 5 mg-acetaminophen 325 1 tab PO BID PRN 08/02/19 10/14/19 History mg tablet metoprolol tartrate 25 mg tablet 25 mg PO BID #60 tab 08/18/19 09/30/19 Rx atorvastatin 80 mg tablet 80 mg PO QAM #90 tab 08/22/19 09/30/19 Rx Past Med/Surg History Medical History CAD (coronary artery disease) S/P ELKIN in pLAD and [place]ie 07/10/2014. NSTEMI 07/08/2014. Cervical radiculopathy Chronic kidney disease (CKD) Dyslipidemia Essential (primary) hypertension GERD (gastroesophageal reflux disease) History of kidney stones History of MA (myocardial infarction) 2014. X2 STENTS ([facility]) NO PROBLEMS SINCE/FOLLOWS DR [facility] [place]. Surgical History H/O wrist surgery LEFT - tendon repair History of arthroscopy of left knee X3 History of colonoscopy History of cystoscopy KIDNEY STONE REMOVAL History of esophagogastroduodenoscopy (EGD) History of lithotripsy History of neck surgery BONE FUSION History of tooth extraction Hx of cholecystectomy Stented coronary artery 2015 ramus and LAD. Family History Other No significant family history Social History Preferred Language: [place] Communication Ability: Effective Unisaw Operator Required: No Beliefs That Will Affect Care: None Current Living Situation: Spouse current occupational status: retired Feels Safe at Home: Yes Safety Concerns: Feels Safe At This Time Smoking Status: Never smoker Do You Dip or Chew Tobacco: No ; Second Hand Exposure: Yes ( A CHILD) ; Tobacco Cessation Education Requested by Patient: No Hx Alcohol Use: Yes Alcohol type: beer Hx Substance Use: No Physical Exam Physical Exam: Patient alert and oriented Neurologically intact Results & Data Vital Signs (Past 12 Hours) Vital Signs Temp Pulse Resp BP Pulse Ox 10/14/19 06:02 36.8 C 59 L 18 139/89 98
[2019-10-14] MEDS ORDERED: FLOSEAL HEMOSTATIC MATRIX 10ML TOP ONE (08:37)
[2019-10-14] MEDS ORDERED: GLYCOPYRROLATE 0.2 MG/ML VIAL ONE (09:02)
[2019-10-14] MEDS ORDERED: NEOSTIGMINE METHYLSULFATE 5 MG/5 ML SYR ONE (09:02)
--- NOTE | 2019-10-14 09:14 | Operative Report ---
Post Operative Report Pre & Post Diagnosis Operation Date: 10/14/19 07:15 Pre-Op Diagnosis: Cervical radiculopathy Post-Op Diagnosis: Cervical radiculopathy I identified the patient and participated in the time-out.: Yes Procedure Operation Date: 10/14/19 07:15 Actual Procedures Anterior cervical discectomy with bilateral foraminotomies C6-C7. #2 anterior cervical arthrodesis C6-C7. #3 placement of Spira titanium cage 8 mm in height filled with DBM at C6-C7. #4 peralta plate and screws across C6-C7. Surgeon Tee Fatima, Assistant Portfolio Manager None Estimated Blood Loss 10 Findings Consistent with Post-Op Diagnosis Specimens None Indications This is a 6-year-old male well-known to the presents with worsening left arm pain and weakness after failing extensive course of nonoperative care and progressive dysfunction we are here for surgical invention. Description of Procedure Patient was met with preoperatively case discussed all questions addressed but that point patient was taken back to operative suite underwent intubation placed in supine position the Claudio table head [employer] head insulation board saw operator. All bony prominences well-padded eyes inspected to ensure no external pressure placed upon them. This point the anterior cervical spine was prepped and draped in normal sterile fashion. The assistance of fluoroscopy identified the C6-C7 level a transverse incision was placed along the right anterior aspect of the cervical spine aligns region. Sharp dissection with the assistance of bipolar cautery was performed down to and exposing the anterior cervical spine at C6 and C7. Self-retaining retractors placed. Then performed complete discectomy of C6-7 out to the uncovertebral joints bilaterally. [employer] distraction pins were utilized to assist in visualization. I did remove all posterior annular fibers and longitudinal ligament for complete decompression. Endplates were then burred to subcortical bleeding bone and an 8 mm spiral cage filled with DBM was tapped in position. Distracting apparatus was removed and a peralta plate and screws applied the assistance of fluoroscopy. The incision was then copiously irrigated explored to ensure no damage to surrounding structures remaining bleeding. 10 round STAR drain inserted. The incision was then closed with 2 Vicryl in a fashion of 4 Monocryl for final skin closure. Steri-Strip sterile dressings placed. Patient will continue PACU stable condition. Please note spinal cord monitoring was utilized that the procedure no changes noted. I attest to the content of the Intraoperative Record and any orders documented therein. Any exceptions are noted below.
--- NOTE | 2019-10-14 09:32 | Fluoroscopy Report ---
FL cervical 2-3V HISTORY: 64 years-old Male C6-C7 ACDF status post cervical spine fusion COMPARISON: MRI cervical spine 08/16/2019 TECHNIQUE: 2 spot fluoroscopic images of the cervical spine were obtained utilizing 14.1 seconds fluo roscopy time FINDINGS: Anterior plate and screw fusion hardware is noted at what is labeled the C6-C7 levels. Osseous fusion at C5-C6 redemonstrated. The hardware appears intact on these images. Alignment is grossly unremarka ble on the images submitted. Endotracheal tube is noted. IMPRESSION: Fluoroscopic assistance as above. Please see operative report for further details. ACT 112: Negative or not required by law. The above report was generated using voice recognition software. It may contain grammatical, syntax o r spelling errors. Electronically signed by: Yvan Chang M.D. 10/14/2019 9:30 AM
--- NOTE | 2019-10-14 10:16 | Anesthesiology Progress Note ---
Date of Service October 14, 2019 Anesthesia Post Procedure Vital Signs Vital Signs: Temp Pulse Pulse Resp BP Pulse Ox 10/14/19 10:10 72 16 143/79 H 93 10/14/19 10:00 72 16 148/86 H 96 10/14/19 09:50 72 16 147/92 H 99 10/14/19 09:44 36.4 C L 77 16 143/80 H 100 10/14/19 06:02 36.8 C 59 L 18 139/89 98 Transfer of Care Handoff Completed per policy Notes Mental Status: alert / awake / arousable Patient Amnestic to Procedure: Yes Nausea / Vomiting: adequately controlled Pain: adequately controlled Airway Patency, RR, SpO2: stable & adequate BP & HR: stable & adequate Hydration State: stable & adequate Anesthetic Complications: no major complications apparent and Pt Satisfied with anesthetic care Notes: The patient is awake and stable.
[2019-10-14] MEDS ORDERED: RACEPINEPHRINE 2.25% NEBU SOLN 0.5 ML VIAL INH PRN (11:18)
[2019-10-14] MEDS ORDERED: ALUMINUM/MAGNESIUM SUSP 30 ML UDC PO PRN (11:18)
[2019-10-14] MEDS ORDERED: DEXAMETHASONE SOD PHOSPHATE 8 MG in SYRINGE 0 ML IV PRN (11:18)
[2019-10-14] MEDS ORDERED: PROMETHAZINE HCL 12.5 MG in SODIUM CHLORIDE 0.9% 50 ML IV PRN (11:18)
[2019-10-14] MEDS ORDERED: FAMOTIDINE 20 MG TAB PO PRN (11:18)
[2019-10-14] MEDS ORDERED: ONDANSETRON 4 MG OD TAB PO PRN (11:18)
[2019-10-14] MEDS ORDERED: METOCLOPRAMIDE HCL INJ 5 MG/ML 2 ML VIAL IV PRN (11:18)
[2019-10-14] MEDS ORDERED: MAGNESIUM HYDROXIDE SUSP 30 ML UDC PO PRN (11:18)
[2019-10-14] MEDS ORDERED: NITROGLYCERIN SL 0.4 MG/TAB TAB SL PRN (11:18)
[2019-10-14] MEDS ORDERED: DO NOT ADMINISTER PNEUMOCOCCAL VACCINE PRN (11:18)
[2019-10-14] MEDS ORDERED: ACETAMINOPHEN 500 MG TAB PO PRN (11:18)
[2019-10-14] MEDS ORDERED: PANTOprazole 40 MG TAB PO PRN (11:18)
[2019-10-14] MEDS ORDERED: ACETAMINOPHEN 1,000 MG/100 ML VIAL IV PRN (11:18)
[2019-10-14] MEDS ORDERED: LORazepam 0.5 MG/1 ML VIAL IV PRN (11:18)
[2019-10-14] MEDS ORDERED: DO NOT ADMINISTER FLU VACCINE PRN (11:18)
[2019-10-14] MEDS ORDERED: HYDROmorphone INJ 1 MG/ML SYRINGE IV PRN (11:18)
[2019-10-14] MEDS ORDERED: HYDROmorphone INJ 0.5 MG/0.5 ML SYR IV PRN (11:18)
[2019-10-14] MEDS ORDERED: SOD PHOSPHATE/SOD BIPHOSPHATE ENEMA 132 ML BTL PR PRN (11:18)
[2019-10-14] MEDS ORDERED: NALOXONE HCL 0.4 MG/1 ML VIAL/CARP IV PRN (11:18)
[2019-10-14] MEDS ORDERED: LORazepam 0.5 MG TAB PO PRN (11:18)
[2019-10-14] MEDS: LACTATED RINGER'S 1,000 ML IV SCH ×2 (11:31→20:38)
[2019-10-14] MEDS: TRAMADOL HCL 50 MG TABLET PO PRN (13:51)
[2019-10-14] MEDS: CEFAZOLIN 2000MG 2,000 MG/15 ML SYR IV SCH ×2 (17:02→23:45)
[2019-10-14] MEDS: HYDROCODONE/ACETAMOPHEN 5/325MG TAB PO PRN ×2 (17:05→21:12)
[2019-10-14] MEDS: METOPROLOL TARTRATE 25 MG TAB PO SCH (20:39)
[2019-10-14] MEDS ORDERED: DOCUSATE SODIUM/SENNA 50/8.6MG TAB PO SCH (21:00)
[2019-10-15] MEDS ORDERED: POLYETHYLENE (MIRALAX) 17 GM PACK PO SCH (06:00)
[2019-10-15 06:17] LABS: Hematocrit (blood only) 41.8 % (42-52); Hemoglobin 14.5 g/dL (14.0-18.0); Immature Granulocytes # (auto) 0.02 K/uL (0.00-0.02); Immature Granulocytes % (auto) 0.2 %; Lymphocytes # (auto) 0.93 K/uL (1.2-3.4); Lymphocytes % (auto) 8.8 %; Mean Corpuscular Hemoglobin 30.3 pg (25-34); Mean Corpuscular Hgb Conc 34.7 g/dL (32-36); Mean Corpuscular Volume 87.4 fL (80-100); Mean Platelet Volume 9.6 fL (7.4-10.4); Monocytes # (auto) 0.67 K/uL (0.11-0.59); Monocytes % (auto) 6.3 %; Neutrophils % (auto) 84.7 %; Platelet Count 178 K/uL (130-400); RDW Coefficient of Variation 12.4 % (11.5-14.5); RDW Standard Deviation 39.9 fL (36.4-46.3); Red Blood Count 4.78 M/uL (4.7-6.1); White Blood Count 10.62 K/uL (4.8-10.8)
[2019-10-15 06:47] LABS: BUN Creatinine Ratio 16.5 (10-20); Calcium 8.6 mg/dl (8.5-10.1); Creatinine Clr Calc Pharmacy 75.9 ml/min; Est GFR (African American) 80.9; Est GFR (Non-African American) 69.8; Potassium 4.4 mmol/L (3.5-5.1)
[2019-10-15] MEDS ORDERED: ASPIRIN 81 MG ECTAB PO SCH (09:00)
[2019-10-15] MEDS ORDERED: ATORVASTATIN 40 MG TAB PO SCH (09:00)
[2019-10-15] MEDS ORDERED: CYANOCOBALAMIN 500 MCG TABLET (VITAMIN B-12) PO SCH (09:00)
[2019-10-15] MEDS: TRAMADOL HCL 50 MG TABLET PO PRN (09:33)
[2019-10-15] MEDS: METOPROLOL TARTRATE 25 MG TAB PO SCH (10:19)
[2019-10-16] MEDS ORDERED: bisacodyL 10 MG SUPP PR PRN (09:15)
--- NOTE | 2019-11-04 09:54 | Discharge Summary ---
Date of Service November 04, 2019 Admission HPI Per Admitting Provider This is a 64 old male that presents with chronic persistent neck and arm pain after failing course of nonoperative care is here for surgical invention. Principal Diagnosis Cervical spinal stenosis with radiculopathy Discharge Data Allergies Allergy/AdvReac Type Severity Reaction Status Date / Time oxycodone [From Percocet] Allergy Mild Rash Verified 10/14/19 05:58 Procedures Performed Operation Date: 10/14/19 07:15 Actual Procedures p C6-C7 Anterior Cervical Discectomy and Fusion, Spinal Cord Monitoring(Not Applicable) - Tee Fatima DO Ordered Studies 10/14/19 07:15 FL cervical 2-3V Routine FL fluoroscopy <1hr Routine Hospital Course (1) Cervical radiculopathy: Patient underwent anterior cervical discectomy fusion tolerated this well second orthopedic for possibly. Postop day 1 he was swallowing well no hoarseness arm symptoms markedly improved. STAR drain decreasing probably. Excellent strength testing. Subsequently discharged home. Discharge orders instructions from the chart for further review. Total Time Total Time Spent Total Time Spent (In Minutes): 20 minutes Discharge Plan Discharge Items Patient Disposition: Home - Self-Care Reason For Visit: Spinal Stenosis, Cervical Region Discharge Diagnosis: Cervical spinal stenosis with radiculopathy Activity: As commented below Non-emergency contact: Primary Care Provider Call non-emergency contact if: you have any medication questions Follow-up/Referrals: Oli Lucero DO [Primary Care Provider] - Diet: Regular Addtl Attending Provider Instructions: ACTIVITY RECOMMENDATIONS: SELF CARE INSTRUCTIONS AFTER CERVICAL FUSIONS 1. No smoking. Smoking drastically decreases the chance of a solid fusion. 2. No bending, lifting more than 5 pounds, or twisting (roll like a log when turning in bed). 3. You may shower 3 days after surgery. Thoroughly dry wound. Do not soak in the tub. 4. Cervical collar: Must be worn at all times including sleeping. You may remove the brace only to bath, eat and if you are sitting in a recliner. 5. Please walk as much as you can for exercise. Gradually increase the distance that you walk as your endurance increases. SPECIAL CARE INSTRUCTIONS: VERY IMPORTANT TO READ AND REVIEW A. Do not take any anti-inflammatory medications (i.e. Indocin, Advil, Aspirin, Naprosyn, Aleve, Motrin, etc.) as these may inhibit the chance of a solid fusion. Tylenol is okay to take. B. Your surgical incision has been closed with a cosmetic suture under the skin that will dissolve in about 6 weeks. In 14 days, you can use a pair of clean scissors and cut the suture that is left outside of the skin at the ends of your incision. C. Complications are uncommon, but please contact us if you have any signs or symptoms of: 1. wound infection (fever higher than 102.5 degrees F, redness, separation of wound, drainage, or increasing pain from the incision) 2. blood clots in legs (pain, swelling, redness and warmth in legs) 3. urinary tract infection (fever higher than 102.5 degrees, burning upon urination or increased frequency of urination) 4. nerve problems (inability to walk on your toes or heels, numbness, loss of bowel or bladder control) 5. any other symptoms that concern you. D. Please call the office at if you have any concerns or questions about your operation or recovery. MANAGING PAIN AFTER SPINAL SURGERY 1. Narcotic medication is intended for short-term use and will be provided for surgical pain. Surgical pain usually lasts for a period of 4-6 weeks. Narcotic medication includes Percocet, Vicodin, Darvocet, Tylenol #3 or Lortab. 2. Longer-term pain is more appropriately treated with non-narcotic medication such as Tylenol ES. 3. Muscle spasm is not appropriately treated with narcotics. Muscle relaxers such as Soma, Flexeril or Skelaxin can be used along with Tylenol ES. 4. Remember that we all live with some "aches and pains". This is not unusual or uncommon after an injury or as we get older. 5. We will provide appropriate medication within the normal guidelines of their prescribed use. We will also be very cautious and aware of potential abuse and extended duration of patients' medication needs. 6. Please allow 2-3 days to process refills. Prescriptions will not be mailed but must be picked up at the office. FOLLOW UP VISIT: Keep your scheduled follow-up appointment. Any questions, please call the office at . Pending Studies at Discharge: No Stand-Alone Forms: [facility] [facility], Opioid Pain Management, Smoking Cessation Medications and DC Order Prescriptions: New hydrocodone-acetaminophen 5-325 mg tablet See Rx Instructions .ROUTE .COMPLEX PRN (Reason: pain) Qty: 15 RF: 0 tramadol 50 mg tablet 50 mg PO Q6H PRN (Reason: pain, moderate) Qty: 20 RF: 0 Continued pantoprazole [Protonix] 40 mg tablet,delayed release (DR/EC) 40 mg PO DAILY PRN (Reason: Indigestion) RF: 0 hydrocodone-acetaminophen [Dyke] 5-325 mg tablet 1 tab PO BID PRN (Reason: Pain) RF: 0 metoprolol tartrate 25 mg tablet 25 mg PO BID Qty: 60 RF: 11 atorvastatin 80 mg tablet 80 mg PO QAM Qty: 90 RF: 3 aspirin 81 mg Tablet,Delayed Release (Dr/Ec) 81 mg PO QAM RF: 0 nitroglycerin [Nitrostat] 0.4 mg Tablet, Sublingual 0.4 mg Sublingual UD PRN (Reason: Chest Pain) RF: 0 cholecalciferol (vitamin D3) [Vitamin D3] 2,000 unit Capsule 2,000 unit PO BID RF: 0 omega 6-kfm-gjd-fish oil [Fish Oil] 1,000 mg (120 mg-180 mg) Capsule 1,000 mg PO BID RF: 0 cyanocobalamin (vitamin B-12) 1,000 mcg Capsule 1,000 mcg PO QAM RF: 0 Discharge Orders: Discharge Order (Routine); Ordered 10/15/19 Ordered By: Tee Wilson/Other Patient Handouts: DVT, ED ANTI-EMBOLISM STOCKINGS Admission Data Admit Date/Time: 10/14/19 11:17 Attending Provider: Tee Fatima Admit Provider: Tee Fatima Primary Care Provider: Oli Lucero Other Interventions: Discharge Summary Assessment (RN) Last Done: 10/15/19 10:05 DC Date/Time DO NOT enter until pt leaves facility: 10/15/19 11:40
== END 2019-10-15 11:40 | disposition home or self-care (01) | DRG 30 ==
LOC: ASU 05:25 → 3E 11:17